=== PATIENT | male | born 1945 | race Caucasian/White ===

== ENCOUNTER 2016-10-22 13:13 | Observation (INO) | payer MEDICARE, BC ==
[~2016-10-22 13:13] MED LIST: Ondansetron INJ* 2 MG/ML VIAL IV PRN
[2016-10-22] MEDS ORDERED: ceFAZolin 1 GM in Dextrose (*) 1 GM/50 ML BAG IVPB ONE ×2 (14:22→14:37)
[2016-10-22] MEDS ORDERED: fentaNYL* 50 MCG/ML 2 ML VIAL (100 MCG VIAL) ONE (14:22)
[2016-10-22] MEDS ORDERED: Midazolam* 1 MG/ML 10 ML VIAL (10 MG) ONE (14:22)
[2016-10-22] MEDS ORDERED: HYDROmorphone INJ* 1 MG/ML CARPUJECT SYRINGE ONE (18:33)
[2016-10-22] MEDS: HYDROmorphone INJ* 1 MG/ML CARPUJECT SYRINGE IV PRN (21:20)
[2016-10-23] MEDS: NS 0.9% 1000 ML* 1,000 ML IV SCH ×2 (01:07→08:35)
[2016-10-23] MEDS ORDERED: Levothyroxine TAB* 88 MCG TAB PO SCH (06:00)
[2016-10-23] MEDS: HYDROmorphone INJ* 1 MG/ML CARPUJECT SYRINGE IV PRN (06:06)
--- NOTE | 2016-10-23 06:07 | PRO ---
DATE OF PROCEDURE: 10/22/16 - ROOM #332 REFERRING PHYSICIAN: Dr. Conrad. PROCEDURE PERFORMED: EGD with PEG tube placement. INDICATION: Tonsillar cancer. MEDICATIONS GIVEN: 75 mcg IV fentanyl, 6 mg IV Demerol. PROCEDURE IN DETAIL: After the EGD procedure including the risks, benefits, and alternatives not limited to perforation, surgery, and/or were explained to the patient, written consent was then obtained. 1 g of IV Ancef had been given immediately prior to the procedure starting. An Olympus gastroscope was then inserted into the patient's mouth, advanced down the esophagus, into the stomach, into the distal duodenum. Within the duodenum, I did insufflate with air and then using finger indentation on the left upper quadrant, I did find an area that was satisfactory to place the PEG tube. It was approximately 5 fingerbreadths below and 5 fingerbreadths to the left of the xiphoid process. The area was thoroughly cleaned and then anesthetized with 2 cc of 1% lidocaine. The finder needle did easily insert into the patient 's abdominal wall and into the stomach as was seen on the video monitor. The metal needle was withdrawn and the stylet was left in place. Blue wire was placed through the stylet and then grasped with the snare and then withdrawn from the patient. The PEG tube was then tied on to the end of the blue wire and then successfully pulled into place. A second-look endoscopy did confirm successful placement of the PEG tube within the patient's gastric lumen, and the bumper was set at approximately the 3 ubaldo. Scope was withdrawn from the patient. He tolerated the procedure well and was returned to his hospital room in stable condition. IMPRESSION: 1. Complete upper endoscopy into the distal duodenum with successful PEG tube placement. 2. Grade A erosive esophagitis. He should start omeprazole as an outpatient. 3. Successful PEG tube placement. 4. The patient will be admitted to the hospital for 23-hour observation. As per my routine protocol, he will have a nutritional consult, PEG teaching and then if he is doing well, he can be discharged to home tomorrow. CC: Dr. Conrad; Dr. Claudia George * [id number]/CPS #: [id number] [facility]
[2016-10-23 06:57] LABS: Hematocrit 32 % (42-52); Hemoglobin 10.9 g/dl (14.0-18.0); Mean Corpuscular HGB Conc 34 g/dl (31-36); Mean Corpuscular Hemoglobin 31 pg (27-31); Mean Corpuscular Volume 92 fL (80-94); Mean Platelet Volume 8 um3 (7.4-10.4); Red Blood Count 3.48 10^6/ul (4.0-5.4); Red Cell Distribution Width 13 % (10.5-15); White Blood Count 8.6 10^3/ul (3.5-10.8)
[2016-10-23] MEDS ORDERED: Lisinopril TAB* 10 MG PO SCH (09:00)
[2016-10-23 11:34] VITALS: BP 138/62
--- NOTE | 2016-10-25 16:28 | DS ---
DISCHARGE SUMMARY: DATE OF ADMISSION: 10/22/2016. DATE OF DISCHARGE: 10/23/2016. DISCHARGE DIAGNOSES: 1. Tonsillar cancer. 2. Status post placement of percutaneous gastrostomy. OTHER DIAGNOSES: 1. Hypertension. 2. Hypothyroidism. HOSPITAL COURSE: This 71-year-old man had a PEG tube placed yesterday. It appeared to be uneventful. Overnight, he has been comfortable. This morning, he has no complaints of pain and bowel sounds were positive. He has passed gas. He has been afebrile. The PEG was examined and was not erythematous. His is present and various principles were discussed including the ability to eat food until such time as he was no longer able to. Further training will take place with the nurses and he is scheduled to begin chemoradiation on the . [id number]/[facility] #: [id number] MTDD
== END 2016-10-23 14:00 | disposition home or self-care (01) ==
LOC: ENDO 13:13 → SSU 17:00 → INTOOBSV 17:00
PROVIDERS: ADMIT Internal Medicine Gastroenterology; ATTEND Internal Medicine Gastroenterology
PROC: 0DH63UZ Insertion of Feeding Device into Stomach, Percutaneous Approach (ICD-10-PCS; principal; 2016-10-22)
DX: C09.0 Malignant neoplasm of tonsillar fossa (principal); K22.10 Ulcer of esophagus without bleeding; I10 Essential (primary) hypertension; E03.9 Hypothyroidism, unspecified; M06.9 Rheumatoid arthritis, unspecified; M51.27 Other intervertebral disc displacement, lumbosacral region; F17.210 Nicotine dependence, cigarettes, uncomplicated
CPT/HCPCS: 36415; 85027; A9270-GY; G0378; J0690; J1170; J2250; J3010

== ENCOUNTER → 2016-10-29 06:31 | Day surgery (SDC) | payer MEDICARE, BC ==
[~2016-10-29 06:31] MED LIST changes: +Buffered Lidocaine 1% SYR 3ML* 3 ML/SYR SYRINGE INTRADERM ONE; +Famotidine IV* 10 MG/ML 2 ML (20 mg) IV ONE; +Famotidine IV* 10 MG/ML 2 ML (20 mg) ONE; +KETAMINE HCL* 50 MG/ML 10 ML VIAL ONE; +Lidocaine 1% INJ* 10 MG/ML 30 ML SDV ONE; +Lidocaine 2% PF * 5 ML VIAL ONE; +Midazolam* 1 MG/ML 5 ML VIAL (5 MG) ONE; -Ondansetron INJ* 2 MG/ML VIAL IV PRN; +PROCHLORPERAZINE INJ 5 MG/ML 2 ML VIAL IV PRN; +Propofol* 10 MG/ML 20 ML BTL IV PUSH ONE; +ceFAZolin 2 GM PREMIX (*) 2 GM/50 ML BAG IVPB ONE; +fentaNYL* 50 MCG/ML 2 ML VIAL (100 MCG VIAL) IV PRN; +fentaNYL* 50 MCG/ML 2 ML VIAL (100 MCG VIAL) ONE; +oxyCODONE/Acetamin 5/325 MG* TAB PO PRN
--- NOTE | 2016-10-29 08:40 | SURGPN ---
Brief Operative Note - Surgery Procedures: Procedures OPERATIVE REPORT PRE-OP: Tonsillar cancer POST-OP: Same PROCEDURE: Insertion of 8F PowerPort left chest wall, needle in SURGEON: MD Maria Guadalupe ANESTHESIA:Local with MAC [place] ASST: none IVF: min EBL: min SPECIMEN: none DRAIN: none WOUND CLASS: One COMPLICATIONS: none TO PACU
--- NOTE | 2016-10-29 09:17 | RAD ---
INDICATION: chest port placement COMPARISONS: None relevant TECHNIQUE: Fluoroscopy was provided for a vascular access procedure. Total fluoroscopy time is: 37 seconds FINDINGS: Spot images demonstrate a left-sided chest port from a subclavian approach with the tip overlying the superior vena cava. IMPRESSION: FLUOROSCOPY WAS PROVIDED FOR A VASCULAR ACCESS PROCEDURE CPT II Codes: 6045F
--- NOTE | 2016-10-29 09:19 | RAD ---
HISTORY: Status post chest port placement COMPARISONS: None relevant VIEWS:1: Single frontal portable view of the chest at 8:45 AM FINDINGS: LINES AND TUBES: There is a left-sided chest port from a subclavian approach with the tip overlying the superior vena cava. CARDIOMEDIASTINAL SILHOUETTE: The cardiomediastinal silhouette is normal for portable technique. PLEURA: The costophrenic angles are sharp. No pleural abnormalities are noted. There is no appreciable pneumothorax. LUNG PARENCHYMA: There is hyperinflation. ABDOMEN: The upper abdomen is clear. There is no subphrenic gas. BONES AND SOFT TISSUES: No bone or soft tissue abnormalities are noted. IMPRESSION: LINES AND TUBES ABOVE. COPD.
[2016-10-29 09:48] VITALS: BP 145/72
--- NOTE | 2016-10-30 01:32 | OP ---
DATE OF OPERATION: 10/29/16 [facility] DATE OF : 47 SURGEON: Femi Lerma MD JOINERY SETTER OUT: None. ANESTHESIOLOGIST: Dr. Morin. ANESTHESIA: Local with monitored anesthesia care with Dr. Morin. PRE-OP DIAGNOSIS: Tonsillar cancer. POST-OP DIAGNOSIS: Tonsillar cancer. OPERATIVE PROCEDURE: Insertion of an 8-Wolof left chest wall PowerPort , needle in. ESTIMATED BLOOD LOSS: Minimal. SPECIMENS: None. COMPLICATIONS: None. WOUND CLASSIFICATION: I. DRAINS: None. DESCRIPTION OF PROCEDURE: Written informed consent was obtained, left chest was marked with indelible ink and preoperative antibiotics were administered. The patient was taken to the operating room and placed in the supine position. Sequential compression devices and a warming blanket were applied. The right and left chest and neck were prepped and draped in the usual sterile fashion. Time-out verification was completed. The patient was placed in Trendelenburg position and the left infraclavicular area and the chest wall were anesthetized with 1% lidocaine with epinephrine. Using an 18-gauge Peralta needle passed down at the clavicle, the subclavian vein was accessed on the first pass with good blood return and the guidewire was inserted without difficulty and confirmed to be into the superior vena cava by fluoroscopy. Next, a small transverse incision was made several fingerbreadths below the puncture, initial puncture site and a transverse incision was made and a subcutaneous pocket developed inferior to the incision large enough to put the port. The catheter was then tunneled from the port site to the puncture site in the usual fashion. Using the sheath dilator peel-away system, I was able to insert the catheter into the central venous system at the junction between the right atrium and the superior vena cava without difficulty. The catheter was then cut to the appropriate length and attached to the port. There was good blood return and the catheter flushed well at this point. The port was then placed in the subcutaneous pocket, sutured into position with two separate 2-0 Prolene sutures. The incision was closed with a running 3-0 and 4-0 Polysorb suture and sterile dressings were applied. The port was then accessed with a right angle Marrufo needle and flushed with saline and subsequent heparin and a sterile dressing was applied. The patient tolerated the procedure well and was taken to the recovery room in stable condition. Postprocedural chest x-ray showed the catheter to be in good position without evidence of pneumothorax. [id number]/[facility] #: [id number] MTDD
== END ==
LOC: OR 06:31
PROVIDERS: ATTEND Surgery
DX: C09.9 Malignant neoplasm of tonsil, unspecified (principal); I10 Essential (primary) hypertension; Z87.891 Personal history of nicotine dependence; E03.9 Hypothyroidism, unspecified
CPT/HCPCS: 71010; 76000; C1788; J0690; J1642; J2250; J2704; J3010

== ENCOUNTER 2016-10-31 00:10 | Inpatient (IN) | payer MEDICARE, BC ==
[2016-10-31] MEDS ORDERED: NS 0.9% 1000 ML* 1,000 ML IV ONE ×2 (00:38→10:51)
[2016-10-31 01:52] LABS: Hematocrit 30 % (42-52); Hemoglobin 10.2 g/dl (14.0-18.0); Mean Corpuscular HGB Conc 34 g/dl (31-36); Mean Corpuscular Hemoglobin 31 pg (27-31); Mean Corpuscular Volume 92 fL (80-94); Mean Platelet Volume 7 um3 (7.4-10.4); Red Cell Distribution Width 13 % (10.5-15); White Blood Count 9.5 10^3/ul (3.5-10.8)
[2016-10-31 02:02] LABS: Albumin 2.6 g/dL (3.2-5.2); BUN/Creatinine Ratio 20.8 (8-20); Calcium 8.7 mg/dL (8.6-10.3); EGFR African American 221.6 (>60); EGFR Non-African American 172.3 (>60); Magnesium 1.6 mg/dL (1.9-2.7); Potassium 3.4 mmol/L (3.5-5.0); Total Protein 5.6 g/dL (6.4-8.9)
[2016-10-31 02:03] LABS: Total Bilirubin 0.7 mg/dL (0.2-1.0)
--- NOTE | 2016-10-31 02:09 | ED ---
Indio Spence Billy, scribed for Layton Adamson MD on 10/31/16 at 0043 . Shortness of Breath - HPI Summary HPI Summary: Patient is a 71 year-old male coming to [facility] presenting with constant SOB at rest starting at approximately 2000 the evening of 10/30/16. Sitting forward improves his symptoms. Patient started chemotherapy yesterday for throat and nose cancer. He has no other complaints at this time. - History of Current Complaint Chief Complaint: EDShortnessOfBreath Time Seen by Provider: 10/31/16 00:13 Hx Obtained From: Patient Onset/Duration: Gradual Onset, Lasting Hours, Still Present Timing: Constant Current Severity: Moderate Dyspnea At: Rest Aggrevating Factors: Nothing Alleviating Factors: Upright Position Associated Signs & Symptoms: Negative - Allergy/Home Medications Allergies/Adverse Reactions: Allergies Allergy/AdvReac Type Severity Reaction Status Date / Time No Known Allergies Allergy Verified 10/29/16 07:02 PMH/Surg Hx/FS Hx/Imm Hx Endocrine/Hematology History: Reports: Hx Thyroid Disease - HYPOTHYROIDISM Cardiovascular History: Reports: Hx Hypertension - CONTROL WITH MEDS Respiratory History: Reports: Other Respiratory Problems/Disorders - TUMOR IN THROAT, TROUBLE DISCHARGING MUCUS Musculoskeletal History: Reports: Hx Arthritis - RHEUMATOID Sensory History: Denies: Hx Contacts or Glasses, Hx Hearing Aid Opthamlomology History: Denies: Hx Contacts or Glasses - Surgical History Surgery Procedure, Year, and Place: APPENDECTOMY. 10/22/2016 EGD WITH PEG TUBE PLACEMENT Hx Anesthesia Reactions: No - LOCAL Infectious Disease History: No Infectious Disease History: Denies: Traveled Outside the [place] in Last 30 Days - Family History Known Family History: Positive: Other - No FHx of malignant hyperthermia or anesthesia reaction. - Social History Alcohol Use: None Substance Use Type: Reports: None Smoking Status (MU): Never Smoked Tobacco Type: Cigarettes Amount Used/How Often: 6-8 CIGARETTES PER DAY FOR ABOUT 40 YEARS Have You Smoked in the Last Year: Yes Review of Systems Negative: Fever Positive: Shortness Of Breath All Other Systems Reviewed And Are Negative: Yes Physical Exam Triage Information Reviewed: Yes Vital Signs On Initial Exam: Initial Vitals Temp Pulse Resp BP Pulse Ox 98.4 F 69 22 144/71 96 10/31/16 00:21 10/31/16 00:21 10/31/16 00:21 10/31/16 00:21 10/31/16 00:21 Vital Signs Reviewed: Yes Appearance: Positive: Ill-Appearing, Thin Skin: Positive: Warm Head/Face: Positive: Normal Head/Face Inspection Eyes: Positive: HEATHER ENT: Positive: Hearing grossly normal Neck: Positive: Supple Respiratory/Lung Sounds: Positive: Breath Sounds Present Cardiovascular: Positive: Normal Abdomen Description: Positive: Nontender, Soft Musculoskeletal: Positive: Strength/ROM Intact Neurological: Positive: Sensory/Motor Intact Diagnostics - Vital Signs Vital Signs Temp Pulse Resp BP Pulse Ox 10/31/16 00:21 98.4 F 69 22 144/71 96 - Laboratory Lab Results: Lab Results 10/31/16 10/31/16 10/31/16 Range/Units 01:35 01:35 01:35 WBC 9.5 (3.5-10.8) 10^3/ul RBC 3.30 L (4.0-5.4) 10^6/ul Hgb 10.2 L (14.0-18.0) g/dl Hct 30 L (42-52) % MCV 92 (80-94) fL MCH 31 (27-31) pg MCHC 34 (31-36) g/dl RDW 13 (10.5-15) % Plt Count 296 (150-450) 10^3/ul MPV 7 L (7.4-10.4) um3 Neut % (Auto) 83.7 H (38-83) % Lymph % (Auto) 6.9 L (25-47) % [place] % (Auto) 7.9 (1-9) % Eos % (Auto) 1.3 (0-6) % Baso % (Auto) 0.2 (0-2) % Absolute Neuts (auto) 7.9 H (1.5-7.7) 10^3/ul Absolute Lymphs (auto) 0.6 L (1.0-4.8) 10^3/ul Absolute Monos (auto) 0.8 (0-0.8) 10^3/ul Absolute Eos (auto) 0.1 (0-0.6) 10^3/ul Absolute Basos (auto) 0 (0-0.2) 10^3/ul Absolute Nucleated RBC 0 10^3/ul Nucleated RBC % 0 Sodium Pending Potassium 3.4 L (3.5-5.0) mmol/L Chloride 85 L (101-111) mmol/L Carbon Dioxide 32 (22-32) mmol/L Anion Gap Pending BUN 10 (6-24) mg/dL Creatinine 0.48 L (0.67-1.17) mg/dL Est GFR ( Amer) 221.6 (>60) Est GFR (Non-Af Amer) 172.3 (>60) BUN/Creatinine Ratio 20.8 H (8-20) Glucose 89 (70-100) mg/dL Lactic Acid 0.7 (0.5-2.0) mmol/L Calcium 8.7 (8.6-10.3) mg/dL Magnesium 1.6 L (1.9-2.7) mg/dL Total Bilirubin 0.70 (0.2-1.0) mg/dL AST 20 (13-39) U/L ALT 14 (7-52) U/L Alkaline Phosphatase 51 (34-104) U/L Total Protein 5.6 L (6.4-8.9) g/dL Albumin 2.6 L (3.2-5.2) g/dL Globulin 3.0 (2-4) g/dL Albumin/Globulin Ratio 0.9 L (1-3) Result Diagrams: 10/31/16 01:35 10/31/16 01:35 Lab Statement: Any lab studies that have been ordered have been reviewed, and results considered in the medical decision making process. - Radiology CXR Xray Interpretation: No Acute Changes Radiology Interpretation Completed By: ED Physician - EKG 0157 EKG Interpretation: NSR 61 bpm, LVH Course/Dx - Diagnoses Provider Diagnoses: Hyponatremia - Physician Notifications Discussed Care of Patient With: Dr. Rueda (hospitalist) @ 0225: accepts admission. Instructed by Provider To: Admit As Inpatient Discharge - Discharge Plan Condition: Fair Disposition: ADMITTED TO Health system documentation as recorded by the Indio gonzales Billy accurately reflects the service I personally performed and the decisions made by me, Layton Adamson MD.
[2016-10-31] MEDS ORDERED: Nicotine Inhaler* 10 MG AMP INH PRN (02:32)
[2016-10-31] MEDS ORDERED: Acetaminophen TAB* 325 MG PO PRN (02:32)
[2016-10-31] MEDS ORDERED: Ondansetron INJ* 2 MG/ML VIAL IV PRN (02:33)
[2016-10-31] MEDS ORDERED: HYDROmorphone INJ* 1 MG/ML CARPUJECT SYRINGE ONE (03:30)
[2016-10-31 03:36] LABS: Urine Bilirubin Negative (Negative); Urine Glucose Negative (Negative); Urine Nitrite Negative (Negative)
[2016-10-31] MEDS ORDERED: Lidocaine 2% VISCOUS* 15 ML UDC SWISH SWAL PRN (05:08)
--- NOTE | 2016-10-31 05:21 | HP ---
H&P (Free Text) History and Physical: PCP: Jeannie George MD Oncology: Mian Nuñez MD Radiation oncology: Mian Conrad MD Date/Time of Evaluation: 10/30/2016 0430 CC: malaise, SOB HPI: Mr Rajan is an unfortunate 71YO male recently diagnosed with locally aggressively invasive tonsillar carcinoma for which he had a power port placed on Saturday immediately follow that day by initiation of his first rounds of radio - & chemoTX. Saturday afternoon he began feeling generally weak with increasing SOB which seemed worse laying down. He has had no chest pain, sweats, F/C, or other issues. He has had ~35# weight loss in the past 3 months. Evaluation is notable for a Na of 119, down from 127 10/29/2016. PMedHx tonsillar CA, recently diagnosed HTN hypothyroidism normocytic anemia tobacco use disorder Allergies No Known Allergies Allergy (Verified 10/29/16 07:02) Ambulatory Orders Levothyroxine TAB* [Synthroid 88 MCG TAB*] 88 mcg PO QAM 10/18/16 Lisinopril TAB* [Prinivil TAB 10 MG*] 10 mg PO QAM 10/18/16 Ibuprofen [Advil Migraine] 400 mg PO DAILY PRN 10/22/16 Varenicline Tartrate [Chantix] 0.5 mg PO BID 10/22/16 oxyCODONE/Acetamin 5/325 MG* [Percocet 5/325 TAB*] 1 tab PO Q6H PRN #15 tab MDD 4 10/29/16 Prochlorperazine TAB* [Compazine Tab*] 10 mg PO Q6H PRN 10/31/16 PSurgHx PowerPort placement appendectomy SocHx: former smoker (quit Saturday) on varenicline, former heavy drinker until Aug 2016 was drinking upwards of 12 beers daily, no recreational drugs; , lives with his ; 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 ROS: as above, otherwise reviewed and all were negative Constitutional: NAD, normally developed, thin white male vitals: Vital Signs Temp 36.4 C 10/31/16 04:50 Pulse 67 10/31/16 04:50 Resp 20 10/31/16 04:50 BP 168/65 10/31/16 04:50 Pulse Ox 99 10/31/16 04:50 Intake & Output 10/30/16 10/30/16 10/31/16 11:59 23:59 11:59 Intake Total 1000 Balance 1000 Weight 59.421 kg Intake: IV Fluids 1000 HEENM: atraumatic; sclera/conjunctiva: non-icteric/mildly injected OU; hearing: clinically intact; oropharynx: clear, mucosa moist Neck: soft tissue: non-tender; thyroid: normal Pulmonary: clear to auscultation bilaterally, good aeration, no accessory muscle use CV: RR/RR, normal S1S2, no carotid bruit, no jugular venous distention, 2+ B DP/ PT, no edema Abdominal: soft, non-distended, non-tender, no rebound/guarding/rigidity, normoactive bowel sounds, no hepatosplenomegaly or masses, no costovertebral angle tenderness Musculoskeletal: general: grossly intact; gait: stable Integumental: normal appearance and texture of exposed skin Psychiatric orientation: AA&O to PPS affect: fatigued mood: cooperative eye contact: fair content: reliable responses: timely insight: good to fair Testing: Lab Results 10/31/16 10/31/16 10/31/16 Range/Units 01:35 01:35 01:35 WBC 9.5 (3.5-10.8) 10^3/ul RBC 3.30 L (4.0-5.4) 10^6/ul Hgb 10.2 L (14.0-18.0) g/dl Hct 30 L (42-52) % MCV 92 (80-94) fL MCH 31 (27-31) pg MCHC 34 (31-36) g/dl RDW 13 (10.5-15) % Plt Count 296 (150-450) 10^3/ul MPV 7 L (7.4-10.4) um3 Neut % (Auto) 83.7 H (38-83) % Lymph % (Auto) 6.9 L (25-47) % [place] % (Auto) 7.9 (1-9) % Eos % (Auto) 1.3 (0-6) % Baso % (Auto) 0.2 (0-2) % Absolute Neuts (auto) 7.9 H (1.5-7.7) 10^3/ul Absolute Lymphs (auto) 0.6 L (1.0-4.8) 10^3/ul Absolute Monos (auto) 0.8 (0-0.8) 10^3/ul Absolute Eos (auto) 0.1 (0-0.6) 10^3/ul Absolute Basos (auto) 0 (0-0.2) 10^3/ul Absolute Nucleated RBC 0 10^3/ul Nucleated RBC % 0 Sodium 119 L* D (133-145) mmol/L Potassium 3.4 L (3.5-5.0) mmol/L Chloride 85 L (101-111) mmol/L Carbon Dioxide 32 (22-32) mmol/L Anion Gap 2 (2-11) mmol/L BUN 10 (6-24) mg/dL Creatinine 0.48 L (0.67-1.17) mg/dL Est GFR ( Amer) 221.6 (>60) Est GFR (Non-Af Amer) 172.3 (>60) BUN/Creatinine Ratio 20.8 H (8-20) Glucose 89 (70-100) mg/dL Lactic Acid 0.7 (0.5-2.0) mmol/L Calcium 8.7 (8.6-10.3) mg/dL Magnesium 1.6 L (1.9-2.7) mg/dL Total Bilirubin 0.70 (0.2-1.0) mg/dL AST 20 (13-39) U/L ALT 14 (7-52) U/L Alkaline Phosphatase 51 (34-104) U/L Total Protein 5.6 L (6.4-8.9) g/dL Albumin 2.6 L (3.2-5.2) g/dL Globulin 3.0 (2-4) g/dL Albumin/Globulin Ratio 0.9 L (1-3) Urine Color Urine Appearance Urine pH (5-9) Ur Specific [place] (1.010-1.030) Urine Protein (Negative) Urine Ketones (Negative) Urine Blood (Negative) Urine Nitrate (Negative) Urine Bilirubin (Negative) Urine Urobilinogen (Negative) Ur Leukocyte Esterase (Negative) Urine Glucose (Negative) 10/31/16 Range/Units 03:25 WBC (3.5-10.8) 10^3/ul RBC (4.0-5.4) 10^6/ul Hgb (14.0-18.0) g/dl Hct (42-52) % MCV (80-94) fL MCH (27-31) pg MCHC (31-36) g/dl RDW (10.5-15) % Plt Count (150-450) 10^3/ul MPV (7.4-10.4) um3 Neut % (Auto) (38-83) % Lymph % (Auto) (25-47) % [place] % (Auto) (1-9) % Eos % (Auto) (0-6) % Baso % (Auto) (0-2) % Absolute Neuts (auto) (1.5-7.7) 10^3/ul Absolute Lymphs (auto) (1.0-4.8) 10^3/ul Absolute Monos (auto) (0-0.8) 10^3/ul Absolute Eos (auto) (0-0.6) 10^3/ul Absolute Basos (auto) (0-0.2) 10^3/ul Absolute Nucleated RBC 10^3/ul Nucleated RBC % Sodium (133-145) mmol/L Potassium (3.5-5.0) mmol/L Chloride (101-111) mmol/L Carbon Dioxide (22-32) mmol/L Anion Gap (2-11) mmol/L BUN (6-24) mg/dL Creatinine (0.67-1.17) mg/dL Est GFR ( Amer) (>60) Est GFR (Non-Af Amer) (>60) BUN/Creatinine Ratio (8-20) Glucose (70-100) mg/dL Lactic Acid (0.5-2.0) mmol/L Calcium (8.6-10.3) mg/dL Magnesium (1.9-2.7) mg/dL Total Bilirubin (0.2-1.0) mg/dL AST (13-39) U/L ALT (7-52) U/L Alkaline Phosphatase (34-104) U/L Total Protein (6.4-8.9) g/dL Albumin (3.2-5.2) g/dL Globulin (2-4) g/dL Albumin/Globulin Ratio (1-3) Urine Color Straw Urine Appearance Clear Urine pH 7.0 (5-9) Ur Specific [place] 1.006 L (1.010-1.030) Urine Protein Negative (Negative) Urine Ketones Negative (Negative) Urine Blood Negative (Negative) Urine Nitrate Negative (Negative) Urine Bilirubin Negative (Negative) Urine Urobilinogen Negative (Negative) Ur Leukocyte Esterase Negative (Negative) Urine Glucose Negative (Negative) ECG, personally reviewed: NSR rate 61, no ischemia CXR, personally reviewed: stigmata of COPD, possible small R pleural effusion; no infiltrate Impression: 71M presenting with fatigue, malaise, & subjective SOB found to have significant electrolyte abnormalities likely 2nd volume depletion from poor PO intake DIAGNOSIS & PLAN Primary hypoNatremia : NS IVFs, trend : consider 3% saline, if unresponsive to above : seizure precautions : supportive care hypoKalemia : replace hypoMagnesemia : replace SOB : this appears to be more related to dry mouth and nasal passage obstruction by tumor : saO2s >92% on RA : no objective distress tonsillar CA : oncology to manage suspect protein calorie malnutrition : check prealbumin Secondary HTN : continue lisinopril hypothyroidism : continue levothyroxine stable normocytic anemia : periodic monitoring tobacco use disorder : continue varenicline : nicotine inhaler : attempting cessation Admission Rational: observation for electrolyte imbalance DVTp: heparin SQ Code Status: full HCP:
[2016-10-31 05:35] LABS: Hematocrit 31 % (42-52); Hemoglobin 10.2 g/dl (14.0-18.0); Mean Corpuscular HGB Conc 33 g/dl (31-36); Mean Corpuscular Hemoglobin 31 pg (27-31); Mean Corpuscular Volume 92 fL (80-94); Mean Platelet Volume 7 um3 (7.4-10.4); Red Blood Count 3.32 10^6/ul (4.0-5.4); Red Cell Distribution Width 13 % (10.5-15); White Blood Count 8.8 10^3/ul (3.5-10.8)
[2016-10-31 05:44] LABS: BUN/Creatinine Ratio 20.8 (8-20); Calcium 8.3 mg/dL (8.6-10.3); EGFR African American 221.6 (>60); EGFR Non-African American 172.3 (>60); Potassium 3.3 mmol/L (3.5-5.0)
[2016-10-31] MEDS: Omeprazole CAP* 20 MG PO SCH (06:03)
[2016-10-31] MEDS: LEVOTHYROXINE 88 MCG PO SCH (06:03)
[2016-10-31] MEDS ORDERED: PROCHLORPERAZINE 10 MG PO PRN (06:03)
[2016-10-31] MEDS ORDERED: Magnesium Sulfate 2 GM IV* 2 GM/50 ML BAG IVPB ONE ×2 (06:11→08:12)
[2016-10-31] MEDS ORDERED: Albuterol 2.5 MG/3 ML NEB.SOL* (0.083%) INH SCH (07:00)
--- NOTE | 2016-10-31 07:44 | RAD ---
INDICATION: Weakness and shortness of breath. COMPARISON: Comparison is made with a prior chest x-ray study from October 29, 2016. TECHNIQUE: Dual-energy PA and lateral views of the chest were obtained. FINDINGS: The heart is within normal limits in size. Mediastinal and hilar contours appear within normal limits. There is a power port central venous catheter present entering on the left side. The catheter tip projects over the superior vena cava. The lungs are hyperinflated and clear. No pneumothorax or pleural effusion is seen. IMPRESSION: COPD, NO EVIDENCE FOR ACUTE FINDING.
[2016-10-31] MEDS: KCL 20 MEQ/100 ML IVPREMIX* 20 MEQ/100 ML BAG IV SCH ×3 (07:52→11:23)
[2016-10-31] MEDS ORDERED: Potassium Chloride LIQUID* 20 MEQ PACKET PO ONE (08:19)
[2016-10-31] MEDS ORDERED: Potassium Chloride LIQUID* 20 MEQ PACKET PO SCH (09:00)
[2016-10-31] MEDS: LISINOPRIL 10 MG PO SCH (09:15)
[2016-10-31] MEDS: Docusate CAP* 100 MG PO SCH ×2 (09:15→20:28)
[2016-10-31] MEDS: VARENICLINE 1 MG PO SCH ×3 (09:16→20:30)
--- NOTE | 2016-10-31 11:07 | PN ---
Progress Note - Progress Note SOAP: Subjective: feeling a little better this am. reports that his major complaint on coming to the ER was trouble breathing given the thick secretions and pressing tumor. reports that previously he was advised to eat lots of salty foods given his chronic hyponatremia, however with his new diagnosis he has not been. Objective: Vital Signs Temp Pulse Resp BP Pulse Ox 97.8 F 70 20 136/56 98 10/31/16 07:54 10/31/16 09:42 10/31/16 09:42 10/31/16 07:54 10/31/16 09:42 perr eomi op:very dry, thick stranded mucous, necrotic appearing mass posterior OP CTA bl s1 s2 nl soft nt clean peg no le edema a+O x 3, nonfocal neurological exam Abnormal Lab Results 10/31/16 10/31/16 10/31/16 01:35 01:35 01:35 WBC 9.5 RBC 3.30 L Hgb 10.2 L Hct 30 L MCV 92 MCH 31 MCHC 34 RDW 13 Plt Count 296 MPV 7 L Neut % (Auto) 83.7 H Lymph % (Auto) 6.9 L [place] % (Auto) 7.9 Eos % (Auto) 1.3 Baso % (Auto) 0.2 Absolute Neuts (auto) 7.9 H Absolute Lymphs (auto) 0.6 L Absolute Monos (auto) 0.8 Absolute Eos (auto) 0.1 Absolute Basos (auto) 0 Absolute Nucleated RBC 0 Nucleated RBC % 0 Sodium 119 L* D Potassium 3.4 L Chloride 85 L Carbon Dioxide 32 Anion Gap 2 BUN 10 Creatinine 0.48 L Est GFR ( Amer) 221.6 Est GFR (Non-Af Amer) 172.3 BUN/Creatinine Ratio 20.8 H Glucose 89 Lactic Acid 0.7 Calcium 8.7 Magnesium 1.6 L Total Bilirubin 0.70 AST 20 ALT 14 Alkaline Phosphatase 51 Total Protein 5.6 L Albumin 2.6 L Globulin 3.0 Albumin/Globulin Ratio 0.9 L Prealbumin 11 L Urine Color Urine Appearance Urine pH Ur Specific [place] Urine Protein Urine Ketones Urine Blood Urine Nitrate Urine Bilirubin Urine Urobilinogen Ur Leukocyte Esterase Urine Glucose 10/31/16 10/31/16 10/31/16 03:25 05:20 05:20 WBC 8.8 RBC 3.32 L Hgb 10.2 L Hct 31 L MCV 92 MCH 31 MCHC 33 RDW 13 Plt Count 307 MPV 7 L Neut % (Auto) Lymph % (Auto) [place] % (Auto) Eos % (Auto) Baso % (Auto) Absolute Neuts (auto) Absolute Lymphs (auto) Absolute Monos (auto) Absolute Eos (auto) Absolute Basos (auto) Absolute Nucleated RBC Nucleated RBC % Sodium 120 L Potassium 3.3 L Chloride 85 L Carbon Dioxide 31 Anion Gap 4 BUN 10 Creatinine 0.48 L Est GFR ( Amer) 221.6 Est GFR (Non-Af Amer) 172.3 BUN/Creatinine Ratio 20.8 H Glucose 89 Lactic Acid Calcium 8.3 L Magnesium Total Bilirubin AST ALT Alkaline Phosphatase Total Protein Albumin Globulin Albumin/Globulin Ratio Prealbumin Urine Color Straw Urine Appearance Clear Urine pH 7.0 Ur Specific [place] 1.006 L Urine Protein Negative Urine Ketones Negative Urine Blood Negative Urine Nitrate Negative Urine Bilirubin Negative Urine Urobilinogen Negative Ur Leukocyte Esterase Negative Urine Glucose Negative Acetaminophen (Tylenol Tab*) 650 mg PO Q6H PRN PRN Reason: FEVER/PAIN Albuterol (Ventolin 2.5 Mg/3 Ml Neb.Yuli*) 2.5 mg INH Q2H PRN PRN Reason: SOB/WHEEZING Docusate Sodium (Colace Cap*) 200 mg PO BID [facility] Last Admin: 10/31/16 09:15 Dose: Not Given Heparin Sodium (Porcine) (Heparin Vial(*)) 5,000 units SUBCUT Q8HR [facility] Heparin Sodium (Porcine) (Heparin Flush Port (Ivad)) 5 ml FLUSH DAILY [facility] PRN Reason: Protocol Last Admin: 10/31/16 09:15 Dose: Not Given Sodium Chloride (Ns 0.9% 1000 Ml*) 1,000 mls @ 125 mls/hr IV PER RATE BLANK Sodium Chloride (Ns 0.9% 1000 Ml*) 1,000 mls @ 1,000 mls/hr IV .PER RATE ONE Stop: 10/31/16 11:50 Levothyroxine Sodium (Synthroid Tab*) 88 mcg PO DAILY@0600 [facility] Last Admin: 10/31/16 06:03 Dose: 88 mcg Lidocaine (Xylocaine 2% Viscous*) 20 ml SWISH SWAL AC PRN PRN Reason: sore throat Lisinopril (Prinivil Tab*) 10 mg PO QAM [facility] Last Admin: 10/31/16 09:15 Dose: 10 mg Melatonin (Melatonin (Nf)) 3 mg PO BEDTIME PRN; Protocol PRN Reason: Sleep Nicotine (Nicotine Inhaler*) 10 mg INH Q2H PRN PRN Reason: CRAVING Omeprazole (Prilosec Cap*) 20 mg PO DAILY@0600 [facility] Last Admin: 10/31/16 06:03 Dose: 20 mg Ondansetron HCl (Zofran Inj*) 4 mg IV Q6H PRN PRN Reason: NAUSEA Oxycodone HCl (Roxycodone Tab*) 5 mg PO Q4H PRN PRN Reason: PAIN Prochlorperazine (Compazine Tab*) 10 mg PO Q6H PRN PRN Reason: NAUSEA Sodium Chloride (Sodium Chloride Tab*) 1 gm PO BID [facility] Varenicline (Chantix (Nf)) 1 mg PO BID [facility] Last Admin: 10/31/16 09:16 Dose: 1 mg Assessment: 71 yo M w cT4bN2 SCC of the oropharynx and chronic hyponatremia admitted with SOB and found to be significantly hyponatremic. I suspect that this hyponatremia is multifactorial and related to dehydration, decreased salt intake , and baseline SIADH. Plan: -1L NS bolus today -start salt tabs BID through PEG -dec free water through peg -can hydrate in office PRN if needed -ok to go to RT today, plan to say on course as much as possible severe protein calorie malnutrition: from cancer and poor PO intake -cont peg feeds -nutrition consult hypokalemia and hypomagnesemia: likely from poor PO intake plus cisplatin toxicity -will replete IV today and PO on discharge full code
[2016-10-31] MEDS: NS 0.9% 1000 ML* 1,000 ML IV SCH ×2 (11:22→20:26)
[2016-10-31] MEDS ORDERED: Morphine INJ* 4 MG/ML 1 ML CARPUJECT IV ONE (14:28)
[2016-10-31] MEDS: Sodium Chloride TAB* 1 GM PO SCH ×2 (16:33→20:28)
[2016-10-31] MEDS: CMCS: Melatonin (NF) 3 MG TAB PO PRN (20:28)
[2016-10-31] MEDS: traZODone TAB* 50 MG TAB PO PRN (20:29)
[2016-10-31] MEDS: oxyCODONE TAB* 5 MG TAB PO PRN (23:36)
[2016-11-01] MEDS: oxyCODONE TAB* 5 MG TAB PO PRN ×3 (03:56→21:56)
[2016-11-01] MEDS: NS 0.9% 1000 ML* 1,000 ML IV SCH (04:28)
[2016-11-01] MEDS: LEVOTHYROXINE 88 MCG PO SCH (05:11)
[2016-11-01] MEDS: Heparin VIAL(*) 5000 UNITS/ML VIAL (FIVE THOUSAND) SUBCUT SCH ×3 (05:12→22:06)
[2016-11-01] MEDS: Omeprazole CAP* 20 MG PO SCH (05:12)
[2016-11-01 05:39] LABS: Hematocrit 29 % (42-52); Hemoglobin 10.1 g/dl (14.0-18.0); Mean Corpuscular HGB Conc 34 g/dl (31-36); Mean Corpuscular Hemoglobin 31 pg (27-31); Mean Corpuscular Volume 90 fL (80-94); Mean Platelet Volume 7 um3 (7.4-10.4); Red Blood Count 3.26 10^6/ul (4.0-5.4); Red Cell Distribution Width 13 % (10.5-15); White Blood Count 8.3 10^3/ul (3.5-10.8)
[2016-11-01 05:53] LABS: Albumin 2.6 g/dL (3.2-5.2); BUN/Creatinine Ratio 18.5 (8-20); Calcium 7.9 mg/dL (8.6-10.3); EGFR African American 193.4 (>60); EGFR Non-African American 150.4 (>60); Magnesium 1.8 mg/dL (1.9-2.7); Total Bilirubin 0.7 mg/dL (0.2-1.0); Total Protein 5.6 g/dL (6.4-8.9)
--- NOTE | 2016-11-01 09:09 | PN ---
Progress Note - Progress Note SOAP: Subjective: Na lower this am. reports that he feels better than yesterday but still feels weak overall. mentally very clear. no BM since 10/30. anorexia but no nausea Objective: Vital Signs Temp Pulse Resp BP Pulse Ox 98.3 F 88 14 140/70 98 11/01/16 08:00 11/01/16 08:42 11/01/16 08:42 11/01/16 03:50 11/01/16 08:42 lying flat in nad perr eomi op dry necrotic appearing palatal mass cta bl s1 s2 nl soft nt +bs, clean peg no le edema A+O x 3, grossly nonfocal Laboratory Results - last 24 hr 11/01/16 11/01/16 05:15 05:15 WBC 8.3 RBC 3.26 L Hgb 10.1 L Hct 29 L MCV 90 MCH 31 MCHC 34 RDW 13 Plt Count 272 MPV 7 L Neut % (Auto) 88.3 H Lymph % (Auto) 5.5 L [place] % (Auto) 5.6 Eos % (Auto) 0.4 Baso % (Auto) 0.2 Absolute Neuts (auto) 7.4 Absolute Lymphs (auto) 0.5 L Absolute Monos (auto) 0.5 Absolute Eos (auto) 0 Absolute Basos (auto) 0 Absolute Nucleated RBC 0 Nucleated RBC % 0 Sodium 117 L* Potassium 3.0 L Chloride 83 L Carbon Dioxide 31 Anion Gap 3 BUN 10 Creatinine 0.54 L Est GFR ( Amer) 193.4 Est GFR (Non-Af Amer) 150.4 BUN/Creatinine Ratio 18.5 Glucose 103 H Calcium 7.9 L Magnesium 1.8 L Total Bilirubin 0.70 AST 23 ALT 18 Alkaline Phosphatase 58 Total Protein 5.6 L Albumin 2.6 L Globulin 3.0 Albumin/Globulin Ratio 0.9 L Acetaminophen (Tylenol Tab*) 650 mg PO Q6H PRN PRN Reason: FEVER/PAIN Albuterol (Ventolin 2.5 Mg/3 Ml Neb.Yuli*) 2.5 mg INH Q2H PRN PRN Reason: SOB/WHEEZING Demeclocycline HCl (Declomycin Tab*) 300 mg PO BID [facility] Docusate Sodium (Colace Cap*) 200 mg PO BID [facility] Last Admin: 10/31/16 20:28 Dose: Not Given Heparin Sodium (Porcine) (Heparin Vial(*)) 5,000 units SUBCUT Q8HR [facility] Last Admin: 11/01/16 05:12 Dose: 5,000 units Heparin Sodium (Porcine) (Heparin Flush Port (Ivad)) 5 ml FLUSH DAILY [facility] PRN Reason: Protocol Last Admin: 10/31/16 09:15 Dose: Not Given Potassium Chloride/Sodium Chloride (Ns 0.9% W/ 40 Meq Kcl 1000 Ml*) 1,000 mls @ 125 mls/hr IV PER RATE [facility] Levothyroxine Sodium (Synthroid Tab*) 88 mcg PO DAILY@0600 [facility] Last Admin: 11/01/16 05:11 Dose: 88 mcg Lidocaine (Xylocaine 2% Viscous*) 20 ml SWISH SWAL AC PRN PRN Reason: sore throat Lisinopril (Prinivil Tab*) 10 mg PO QAM [facility] Last Admin: 10/31/16 09:15 Dose: 10 mg Magnesium Citrate (Citrate Of Magnesia*) 15 ml PO DAILY [facility] Melatonin (Melatonin (Nf)) 3 mg PO BEDTIME PRN; Protocol PRN Reason: Sleep Last Admin: 10/31/16 20:28 Dose: 3 mg Nicotine (Nicotine Inhaler*) 10 mg INH Q2H PRN PRN Reason: CRAVING Omeprazole (Prilosec Cap*) 20 mg PO DAILY@0600 [facility] Last Admin: 11/01/16 05:12 Dose: 20 mg Ondansetron HCl (Zofran Inj*) 4 mg IV Q6H PRN PRN Reason: NAUSEA Oxycodone HCl (Roxycodone Tab*) 5 mg PO Q4H PRN PRN Reason: PAIN Last Admin: 11/01/16 03:56 Dose: 5 mg Potassium Chloride (Klor-Con Liquid*) 40 meq PO BID [facility] Prochlorperazine (Compazine Tab*) 10 mg PO Q6H PRN PRN Reason: NAUSEA Sodium Chloride (Sodium Chloride Tab*) 1 gm PO BID [facility] Last Admin: 10/31/16 20:28 Dose: 1 gm Trazodone HCl (Desyrel Tab*) 50 mg PO BEDTIME PRN PRN Reason: INSOMNIA Last Admin: 10/31/16 20:29 Dose: 50 mg Varenicline (Chantix (Nf)) 1 mg PO BID [facility] Last Admin: 10/31/16 20:30 Dose: Not Given Assessment: 71 yo M w T4N2 SCC of oropharynx on curative intent cisplatin/RT cycle 1 day 4 admitted with SOB and found to have severe hyponatremia. Plan: -add demeclocyline -cont salt tabs -free H20 restriction -per nutrition could concentrate jevity on d/c if needed but not as inpatient -k/mag repletion, likely related to poor PO intake and cisplatin induced nephrotoxicity -heparin dvt prophylaxis
[2016-11-01] MEDS: Magnesium CITRATE* 300 ML BTL PO SCH (10:41)
[2016-11-01] MEDS: NS 0.9% w/ 40 Meq KCL 1000 ML* 1,000 ML IV SCH ×2 (10:44→19:53)
[2016-11-01] MEDS: Sodium Chloride TAB* 1 GM PO SCH ×2 (10:46→22:05)
[2016-11-01] MEDS: Docusate CAP* 100 MG PO SCH ×2 (10:46→21:57)
[2016-11-01] MEDS: Potassium Chloride LIQUID* 20 MEQ PACKET PO SCH ×2 (10:47→22:06)
[2016-11-01] MEDS: Demeclocycline TAB* 150 MG PO SCH ×2 (10:47→22:05)
[2016-11-01] MEDS: LISINOPRIL 10 MG PO SCH (10:47)
[2016-11-01] MEDS: VARENICLINE 1 MG PO SCH ×3 (13:31→21:57)
[2016-11-01] MEDS: CMCS: Melatonin (NF) 3 MG TAB PO PRN (21:57)
[2016-11-02] MEDS: NS 0.9% w/ 40 Meq KCL 1000 ML* 1,000 ML IV SCH ×2 (04:14→17:08)
[2016-11-02] MEDS: LEVOTHYROXINE 88 MCG PO SCH (05:54)
[2016-11-02] MEDS: Heparin VIAL(*) 5000 UNITS/ML VIAL (FIVE THOUSAND) SUBCUT SCH ×3 (05:54→20:17)
[2016-11-02] MEDS: Omeprazole CAP* 20 MG PO SCH (05:54)
[2016-11-02 06:45] LABS: Hematocrit 28 % (42-52); Hemoglobin 9.4 g/dl (14.0-18.0); Mean Corpuscular HGB Conc 34 g/dl (31-36); Mean Corpuscular Hemoglobin 31 pg (27-31); Mean Corpuscular Volume 91 fL (80-94); Mean Platelet Volume 8 um3 (7.4-10.4); Red Blood Count 3.03 10^6/ul (4.0-5.4); Red Cell Distribution Width 13 % (10.5-15); White Blood Count 7.2 10^3/ul (3.5-10.8)
[2016-11-02 07:12] LABS: Albumin 2.4 g/dL (3.2-5.2); BUN/Creatinine Ratio 17.5 (8-20); Calcium 7.9 mg/dL (8.6-10.3); EGFR African American 181.7 (>60); EGFR Non-African American 141.3 (>60); Globulin 2.9 g/dL (2-4); Magnesium 1.6 mg/dL (1.9-2.7); Potassium 4.2 mmol/L (3.5-5.0); Total Bilirubin 0.6 mg/dL (0.2-1.0); Total Protein 5.3 g/dL (6.4-8.9)
[2016-11-02] MEDS: VARENICLINE 1 MG PO SCH ×3 (08:58→20:17)
[2016-11-02] MEDS: Potassium Chloride LIQUID* 20 MEQ PACKET PO SCH ×2 (09:09→20:14)
[2016-11-02] MEDS: Demeclocycline TAB* 150 MG PO SCH ×2 (09:09→20:14)
[2016-11-02] MEDS: LISINOPRIL 10 MG PO SCH (09:09)
[2016-11-02] MEDS: Docusate CAP* 100 MG PO SCH ×2 (09:09→20:15)
[2016-11-02] MEDS: Sodium Chloride TAB* 1 GM PO SCH ×2 (09:09→20:14)
[2016-11-02] MEDS: Magnesium CITRATE* 300 ML BTL PO SCH (09:10)
--- NOTE | 2016-11-02 11:20 | PN ---
Progress Note - Progress Note SOAP: Subjective: []Better then admission. Has diffuse discomfort across abd and chest, not pain and not nausea but does not feel right. Weak but able to do some walking. Not in pain. Acetaminophen (Tylenol Tab*) 650 mg PO Q6H PRN PRN Reason: FEVER/PAIN Albuterol (Ventolin 2.5 Mg/3 Ml Neb.Yuli*) 2.5 mg INH Q2H PRN PRN Reason: SOB/WHEEZING Demeclocycline HCl (Declomycin Tab*) 300 mg PO BID [facility] Last Admin: 11/02/16 09:09 Dose: 300 mg Docusate Sodium (Colace Cap*) 200 mg PO BID [facility] Last Admin: 11/02/16 09:09 Dose: 200 mg Heparin Sodium (Porcine) (Heparin Vial(*)) 5,000 units SUBCUT Q8HR [facility] Last Admin: 11/02/16 05:54 Dose: 5,000 units Heparin Sodium (Porcine) (Heparin Flush Port (Ivad)) 5 ml FLUSH DAILY [facility] PRN Reason: Protocol Last Admin: 11/02/16 09:09 Dose: Not Given Potassium Chloride/Sodium Chloride (Ns 0.9% W/ 40 Meq Kcl 1000 Ml*) 1,000 mls @ 125 mls/hr IV PER RATE [facility] Last Admin: 11/02/16 04:14 Dose: 125 mls/hr Levothyroxine Sodium (Synthroid Tab*) 88 mcg PO DAILY@0600 [facility] Last Admin: 11/02/16 05:54 Dose: 88 mcg Lidocaine (Xylocaine 2% Viscous*) 20 ml SWISH SWAL AC PRN PRN Reason: sore throat Lisinopril (Prinivil Tab*) 10 mg PO QAM [facility] Last Admin: 11/02/16 09:09 Dose: 10 mg Magnesium Citrate (Citrate Of Magnesia*) 15 ml PO DAILY [facility] Last Admin: 11/02/16 09:10 Dose: 15 ml Melatonin (Melatonin (Nf)) 3 mg PO BEDTIME PRN; Protocol PRN Reason: Sleep Last Admin: 11/01/16 21:57 Dose: 3 mg Nicotine (Nicotine Inhaler*) 10 mg INH Q2H PRN PRN Reason: CRAVING Omeprazole (Prilosec Cap*) 20 mg PO DAILY@0600 [facility] Last Admin: 11/02/16 05:54 Dose: 20 mg Ondansetron HCl (Zofran Inj*) 4 mg IV Q6H PRN PRN Reason: NAUSEA Oxycodone HCl (Roxycodone Tab*) 5 mg PO Q4H PRN PRN Reason: PAIN Last Admin: 11/01/16 21:56 Dose: 5 mg Potassium Chloride (Klor-Con Liquid*) 40 meq PO BID [facility] Last Admin: 11/02/16 09:09 Dose: 40 meq Prochlorperazine (Compazine Tab*) 10 mg PO Q6H PRN PRN Reason: NAUSEA Last Admin: 11/01/16 16:53 Dose: 10 mg Sodium Chloride (Sodium Chloride Tab*) 1 gm PO BID [facility] Last Admin: 11/02/16 09:09 Dose: 1 gm Trazodone HCl (Desyrel Tab*) 50 mg PO BEDTIME PRN PRN Reason: INSOMNIA Last Admin: 10/31/16 20:29 Dose: 50 mg Varenicline (Chantix (Nf)) 1 mg PO BID [facility] Last Admin: 11/01/16 21:57 Dose: 1 mg Objective: [] Vital Signs Temp Pulse Resp BP Pulse Ox 98.5 F 78 14 169/85 94 11/02/16 07:40 11/02/16 08:15 11/02/16 08:15 11/02/16 07:40 11/02/16 08:15 HEENT - Dry mouth, no thrush, lesion in left hard palate. CTA RRR S1S2 Distended and hypertympainc, had BS, NT Ext warm and no edema. Assessment: 71 yo M w T4N2 SCC of oropharynx on curative intent cisplatin/RT cycle 1 day 5 admitted with SOB and found to have severe hyponatremia. Several issues today: Plan: 1. Hyponatremia. Na increased on demeclocyline. He has low Alb and question of occult liver disease secondary to RA and MTX in past. PET scan does not show enlarged spleen or liver. - Continue Demclocycline - Check US liver - Check PT -cont salt tabs -free H20 restriction 2. Intolerance of tube feeds. Abd distension on exam. Ddx: gastroparesis, ileus. - ABD XR - Reglan 10 mg IV TID - Pump for tube feeds -k/mag repletion 3. Tonsil Cancer. Continue XRT, will need to decide if can have additional Cisplatin. 4. Walk around halls 4 times per day with or nurse 5. heparin dvt prophylaxis
[2016-11-02] MEDS ORDERED: Magnesium Sulfate IV* 3 GM in NS 0.9% 100 ML* 100 ML IVPB ONE (12:00)
--- NOTE | 2016-11-02 12:29 | RAD ---
INDICATION: Hyponatremia COMPARISON: None TECHNIQUE: Supine and upright views of the abdomen were obtained. FINDINGS: The feeding tube is noted overlying the gastric fundus. Multiple air-filled loops of bowel are seen throughout the abdomen the colon exhibits a maximum diameter of 5.1 cm. There is gas and stool overlying the expected location of the rectum. There is no free air seen beneath the diaphragm. IMPRESSION: Top normal dilated loops of air-filled small bowel seen throughout the colon but there is gas and stool overlying the expected location of the rectum.
--- NOTE | 2016-11-02 13:49 | RAD ---
HISTORY: liver failure COMPARISONS: None TECHNIQUE: Multiple transverse and longitudinal ultrasound images were obtained of the right upper quadrant of the abdomen using grayscale and color Doppler imaging. FINDINGS: LIVER: The liver is normal in shape, size, contour, and echogenicity. There are no focal parenchymal masses. There is normal hepatopedal flow of the portal vein on Doppler imaging. BILIARY TREE: There is no intrahepatic or extrahepatic biliary dilatation. The common duct measures 0.3 cm. GALLBLADDER: There is trace amount pericolonic cystic fluid. There is no appreciable cholelithiasis. There is no sonographic Machado's sign PANCREAS: The pancreas is obscured by overlying bowel gas. RIGHT KIDNEY: The right kidney is echogenic. There are several small simple cysts.. There is no hydronephrosis or nephrolithiasis. The right kidney measures 12.2 x 3.8 x 5.9 cm. AORTA AND IVC: The aorta and IVC are unremarkable. FLUID: There is a right pleural effusion. OTHER FINDINGS: None. IMPRESSION: 1. TRACE AMOUNT OF PERICHOLECYSTIC FLUID. 2. SMALL RIGHT PLEURAL EFFUSION. 3. ECHOGENIC KIDNEYS SUGGESTING MEDICAL RENAL DISEASE
[2016-11-02] MEDS: Metoclopramide IV* 5 MG/ML 2 ML VIAL IV SCH ×2 (13:50→20:15)
[2016-11-02] MEDS: Albuterol 2.5 MG/3 ML NEB.SOL* (0.083%) INH PRN (22:25)
[2016-11-03] MEDS: NS 0.9% w/ 40 Meq KCL 1000 ML* 1,000 ML IV SCH (01:07)
[2016-11-03] MEDS: LEVOTHYROXINE 88 MCG PO SCH (04:48)
[2016-11-03] MEDS: Omeprazole CAP* 20 MG PO SCH (04:48)
[2016-11-03] MEDS: Heparin VIAL(*) 5000 UNITS/ML VIAL (FIVE THOUSAND) SUBCUT SCH ×3 (04:49→20:26)
[2016-11-03 05:12] LABS: Hematocrit 28 % (42-52); Hemoglobin 9.4 g/dl (14.0-18.0); Mean Corpuscular HGB Conc 34 g/dl (31-36); Mean Corpuscular Hemoglobin 31 pg (27-31); Mean Corpuscular Volume 91 fL (80-94); Mean Platelet Volume 7 um3 (7.4-10.4); Red Blood Count 3.09 10^6/ul (4.0-5.4); Red Cell Distribution Width 13 % (10.5-15); White Blood Count 5.6 10^3/ul (3.5-10.8)
[2016-11-03 05:26] LABS: Albumin 2.5 g/dL (3.2-5.2); BUN/Creatinine Ratio 15.8 (8-20); Calcium 7.9 mg/dL (8.6-10.3); EGFR African American 181.7 (>60); EGFR Non-African American 141.3 (>60); Globulin 2.8 g/dL (2-4); Magnesium 1.7 mg/dL (1.9-2.7); Phosphorus 2.5 mg/dL (2.5-5.0); Potassium 3.8 mmol/L (3.5-5.0); Total Bilirubin 0.6 mg/dL (0.2-1.0); Total Protein 5.3 g/dL (6.4-8.9)
--- NOTE | 2016-11-03 09:04 | PN ---
Progress Note - Progress Note SOAP: Subjective: feels better today than he has in days. no BM x 5 days though with abd xray showing mild ileus. tolerating tube feeds but only at 20 cc/hr Objective: Vital Signs Temp Pulse Resp BP Pulse Ox 98.1 F 89 16 161/74 93 11/02/16 23:36 11/02/16 23:36 11/02/16 23:36 11/02/16 23:36 11/02/16 23:36 perr eomi op:palatal necrotic mass cta bl s1 s2 nl soft clean peg no le edema a+O x 3, grossly nonfocal Laboratory Results - last 24 hr 11/03/16 11/03/16 11/03/16 05:00 05:00 05:00 WBC 5.6 RBC 3.09 L Hgb 9.4 L Hct 28 L MCV 91 MCH 31 MCHC 34 RDW 13 Plt Count 254 MPV 7 L Neut % (Auto) 84.4 H Lymph % (Auto) 7.7 L [place] % (Auto) 6.0 Eos % (Auto) 1.7 Baso % (Auto) 0.2 Absolute Neuts (auto) 4.7 Absolute Lymphs (auto) 0.4 L Absolute Monos (auto) 0.3 Absolute Eos (auto) 0.1 Absolute Basos (auto) 0 Absolute Nucleated RBC 0 Nucleated RBC % 0 INR (Anticoag Therapy) 0.90 Sodium 122 L Potassium 3.8 Chloride 89 L Carbon Dioxide 29 Anion Gap 4 BUN 9 Creatinine 0.57 L Est GFR ( Amer) 181.7 Est GFR (Non-Af Amer) 141.3 BUN/Creatinine Ratio 15.8 Glucose 98 Calcium 7.9 L Phosphorus 2.5 Magnesium 1.7 L Total Bilirubin 0.60 AST 17 ALT 14 Alkaline Phosphatase 54 Total Protein 5.3 L Albumin 2.5 L Globulin 2.8 Albumin/Globulin Ratio 0.9 L Acetaminophen (Tylenol Tab*) 650 mg PO Q6H PRN PRN Reason: FEVER/PAIN Albuterol (Ventolin 2.5 Mg/3 Ml Neb.Yuli*) 2.5 mg INH Q2H PRN PRN Reason: SOB/WHEEZING Last Admin: 11/02/16 22:25 Dose: 2.5 mg Demeclocycline HCl (Declomycin Tab*) 300 mg PO BID [facility] Last Admin: 11/02/16 20:14 Dose: 300 mg Docusate Sodium (Colace Cap*) 200 mg PO BID [facility] Last Admin: 11/02/16 20:15 Dose: 200 mg Heparin Sodium (Porcine) (Heparin Vial(*)) 5,000 units SUBCUT Q8HR [facility] Last Admin: 11/03/16 04:49 Dose: 5,000 units Heparin Sodium (Porcine) (Heparin Flush Port (Ivad)) 5 ml FLUSH DAILY [facility] PRN Reason: Protocol Last Admin: 11/02/16 09:09 Dose: Not Given Levothyroxine Sodium (Synthroid Tab*) 88 mcg PO DAILY@0600 [facility] Last Admin: 11/03/16 04:48 Dose: 88 mcg Lidocaine (Xylocaine 2% Viscous*) 20 ml SWISH SWAL PRN PRN Reason: sore throat Last Admin: 11/02/16 22:30 Dose: 20 ml Lisinopril (Prinivil Tab*) 10 mg PO QAM [facility] Last Admin: 11/02/16 09:09 Dose: 10 mg Magnesium Citrate (Citrate Of Magnesia*) 15 ml PO DAILY [facility] Last Admin: 11/02/16 09:10 Dose: 15 ml Melatonin (Melatonin (Nf)) 3 mg PO BEDTIME PRN; Protocol PRN Reason: Sleep Last Admin: 11/01/16 21:57 Dose: 3 mg Metoclopramide HCl (Reglan Iv*) 10 mg IV TID [facility] Last Admin: 11/02/16 20:15 Dose: 10 mg Nicotine (Nicotine Inhaler*) 10 mg INH Q2H PRN PRN Reason: CRAVING Omeprazole (Prilosec Cap*) 20 mg PO DAILY@0600 [facility] Last Admin: 11/03/16 04:48 Dose: 20 mg Ondansetron HCl (Zofran Inj*) 4 mg IV Q6H PRN PRN Reason: NAUSEA Oxycodone HCl (Roxycodone Tab*) 5 mg PO Q4H PRN PRN Reason: PAIN Last Admin: 11/01/16 21:56 Dose: 5 mg Polyethylene Glycol/Electrolytes (Miralax*) 17 gm PO Q12HR [facility] Potassium Chloride (Klor-Con Liquid*) 40 meq PO BID [facility] Last Admin: 11/02/16 20:14 Dose: 40 meq Prochlorperazine (Compazine Tab*) 10 mg PO Q6H PRN PRN Reason: NAUSEA Last Admin: 11/01/16 16:53 Dose: 10 mg Sodium Chloride (Sodium Chloride Tab*) 1 gm PO BID [facility] Last Admin: 11/02/16 20:14 Dose: 1 gm Trazodone HCl (Desyrel Tab*) 50 mg PO BEDTIME PRN PRN Reason: INSOMNIA Last Admin: 10/31/16 20:29 Dose: 50 mg Varenicline (Chantix (Nf)) 1 mg PO BID [facility] Last Admin: 11/02/16 20:17 Dose: 1 mg Assessment: 71 yo M w T4N2 SCC of oropharynx on curative intent cisplatin/RT cycle 1 day 6 admitted with severe hyponatremia. improving slowly on demeclocycline. Plan: -stop IVFs today -can increase demeclocycline to TID tomorrow if <122 -cont salt tabs bid -add miralax BID today, add lactulose tomorrow if no BM -increase tube feeds today to 40cc/hr with order to titrate up 10cc/hr q8hrs as tolerated to goal of 60cc/hr -give IV mag today, wasting 2/2 cisplatin. increase po to 15 ml BID. -watch K now that fluids stopped. on 40meq bid but can increase if needed
[2016-11-03] MEDS ORDERED: Magnesium Sulfate 2 GM IV* 2 GM/50 ML BAG IVPB ONE (09:08)
[2016-11-03] MEDS ORDERED: Polyethylene Glycol 3350* 17 GM PACKET ONE (09:26)
[2016-11-03] MEDS: Polyethylene Glycol 3350* 17 GM PACKET PO SCH ×2 (09:33→20:23)
[2016-11-03] MEDS: Demeclocycline TAB* 150 MG PO SCH ×2 (09:35→20:25)
[2016-11-03] MEDS: Potassium Chloride LIQUID* 20 MEQ PACKET PO SCH ×2 (09:35→20:26)
[2016-11-03] MEDS: LISINOPRIL 10 MG PO SCH (09:35)
[2016-11-03] MEDS: Metoclopramide IV* 5 MG/ML 2 ML VIAL IV SCH ×3 (09:36→20:26)
[2016-11-03] MEDS: Docusate CAP* 100 MG PO SCH ×2 (09:44→20:26)
[2016-11-03] MEDS: Sodium Chloride TAB* 1 GM PO SCH ×2 (09:49→20:25)
[2016-11-03] MEDS: VARENICLINE 1 MG PO SCH ×2 (09:50→20:24)
[2016-11-03] MEDS: Magnesium CITRATE* 300 ML BTL PO SCH ×2 (10:17→20:24)
[2016-11-04] MEDS: Omeprazole CAP* 20 MG PO SCH (04:29)
[2016-11-04] MEDS: LEVOTHYROXINE 88 MCG PO SCH (04:29)
[2016-11-04] MEDS: Heparin VIAL(*) 5000 UNITS/ML VIAL (FIVE THOUSAND) SUBCUT SCH ×3 (04:30→22:00)
[2016-11-04 04:58] LABS: Hematocrit 30 % (42-52); Hemoglobin 10.1 g/dl (14.0-18.0); Mean Corpuscular HGB Conc 34 g/dl (31-36); Mean Corpuscular Hemoglobin 31 pg (27-31); Mean Corpuscular Volume 91 fL (80-94); Mean Platelet Volume 8 um3 (7.4-10.4); Red Blood Count 3.25 10^6/ul (4.0-5.4); Red Cell Distribution Width 13 % (10.5-15)
[2016-11-04 05:10] LABS: Albumin 2.6 g/dL (3.2-5.2); BUN/Creatinine Ratio 15.8 (8-20); Calcium 7.9 mg/dL (8.6-10.3); EGFR African American 181.7 (>60); EGFR Non-African American 141.3 (>60); Magnesium 1.7 mg/dL (1.9-2.7); Potassium 3.6 mmol/L (3.5-5.0); Total Bilirubin 0.5 mg/dL (0.2-1.0); Total Protein 5.6 g/dL (6.4-8.9)
[2016-11-04] MEDS: Metoclopramide IV* 5 MG/ML 2 ML VIAL IV SCH ×3 (08:18→20:53)
[2016-11-04] MEDS: LISINOPRIL 10 MG PO SCH (08:25)
[2016-11-04] MEDS: Polyethylene Glycol 3350* 17 GM PACKET PO SCH ×2 (08:25→20:50)
[2016-11-04] MEDS: Potassium Chloride LIQUID* 20 MEQ PACKET PO SCH ×2 (08:25→20:52)
[2016-11-04] MEDS: Sodium Chloride TAB* 1 GM PO SCH ×2 (08:25→20:52)
[2016-11-04] MEDS: Docusate CAP* 100 MG PO SCH ×2 (08:26→21:04)
[2016-11-04] MEDS: Demeclocycline TAB* 150 MG PO SCH ×4 (08:26→20:52)
[2016-11-04] MEDS ORDERED: Magnesium Sulfate 2 GM IV* 2 GM/50 ML BAG IVPB ONE (08:42)
[2016-11-04] MEDS: Magnesium CITRATE* 300 ML BTL PO SCH ×2 (09:17→21:04)
[2016-11-04] MEDS: VARENICLINE 1 MG PO SCH ×2 (09:17→20:52)
[2016-11-04] MEDS ORDERED: diPHENhydraMINE PO* 25 MG PO PRN (09:48)
--- NOTE | 2016-11-04 09:53 | PN ---
Subjective Date of Service: 11/04/16 Interval History: Patient seen this morning. Said he did have a good night of sleep due to bad dreams. Encouraged him to use prn medications to help sleep if needed. No abdominal pain, still no BM. No SOB. No discomfort around port or PEG. Family History: Unchanged from Admission Social History: Unchanged from Admission Past Medical History: Unchanged from Admission Objective Active Medications: Acetaminophen (Tylenol Tab*) 650 mg PO Q6H PRN Albuterol (Ventolin 2.5 Mg/3 Ml Neb.Yuli*) 2.5 mg INH Q2H PRN Demeclocycline HCl (Declomycin Tab*) 300 mg PO TID [facility] Docusate Sodium (Colace Cap*) 200 mg PO BID [facility] Heparin Sodium (Porcine) (Heparin Vial(*)) 5,000 units SUBCUT Q8HR [facility] Heparin Sodium (Porcine) (Heparin Flush Port (Ivad)) 5 ml FLUSH DAILY [facility] Levothyroxine Sodium (Synthroid Tab*) 88 mcg PO DAILY@0600 [facility] Lidocaine (Xylocaine 2% Viscous*) 20 ml SWISH SWAL AC PRN Lisinopril (Prinivil Tab*) 10 mg PO QAM [facility] Magnesium Citrate (Citrate Of Magnesia*) 15 ml PO BID [facility] Melatonin (Melatonin (Nf)) 3 mg PO BEDTIME PRN; Protocol Metoclopramide HCl (Reglan Iv*) 10 mg IV TID [facility] Nicotine (Nicotine Inhaler*) 10 mg INH Q2H PRN Omeprazole (Prilosec Cap*) 20 mg PO DAILY@0600 [facility] Ondansetron HCl (Zofran Inj*) 4 mg IV Q6H PRN Oxycodone HCl (Roxycodone Tab*) 5 mg PO Q4H PRN Polyethylene Glycol/Electrolytes (Miralax*) 17 gm PO Q12HR [facility] Potassium Chloride (Klor-Con Liquid*) 40 meq PO BID [facility] Prochlorperazine (Compazine Tab*) 10 mg PO Q6H PRN Sodium Chloride (Sodium Chloride Tab*) 1 gm PO BID [facility] Trazodone HCl (Desyrel Tab*) 50 mg PO BEDTIME PRN Varenicline (Chantix (Nf)) 1 mg PO BID [facility] Vital Signs 11/03/16 11/03/16 11/03/16 15:14 19:32 20:00 Temperature 98.0 F 98.2 F Pulse Rate 73 74 Respiratory 28 20 20 Rate Blood Pressure 147/70 141/76 (mmHg) O2 Sat by Pulse 98 96 Oximetry 11/03/16 11/04/16 11/04/16 23:04 01:51 07:42 Temperature 98.6 F 98.0 F Pulse Rate 76 91 76 Respiratory 16 16 20 Rate Blood Pressure 143/59 145/63 (mmHg) O2 Sat by Pulse 97 93 98 Oximetry Oxygen Devices in Use Now: None Appearance: Elderly, M, laying in bed in NAD Eyes: No Scleral Icterus Ears/Nose/Mouth/Throat: Mucous Membranes Moist Respiratory: Symmetrical Chest Expansion and Respiratory Effort, Clear to Auscultation Cardiovascular: NL Sounds; No Murmurs; No JVD, RRR Abdominal: NL Sounds; No Tenderness; No Distention, - - PEG tube in place, dressing c/d/i Lymphatic: No Cervical Adenopathy Extremities: No Edema Neurological: Alert and Oriented x 3 Result Diagrams: 11/04/16 04:30 11/04/16 04:30 Assess/Plan/Problems-Billing Assessment: Hyponatremia in a 71 yo M with hx of oropharyngeal SCC on curative chemo - Patient Problems (1) Hyponatremia Current Visit: Yes Comment: Unchanged. Continue NaCl tabs, increase Demeclocycline to TID (2) Ileus Current Visit: Yes Comment: Still no BM, will add lactulose to regimen (3) Severe protein-calorie malnutrition Current Visit: Yes Comment: TF at goal, tolerating well, continue current rate of 60 ml/hr. Albumin trending up. (4) Hypomagnesemia Current Visit: Yes Comment: Continue increased PO Mag dose (started 11/03), will give additional IV mag today (5) HTN (hypertension) Current Visit: Yes Comment: Continue Lisinopril (6) DVT prophylaxis Current Visit: Yes Comment: HSQ
[2016-11-04] MEDS: CMCS: Melatonin (NF) 3 MG TAB PO PRN (21:08)
[2016-11-05] MEDS: traZODone TAB* 50 MG TAB PO PRN (03:02)
[2016-11-05] MEDS: Heparin VIAL(*) 5000 UNITS/ML VIAL (FIVE THOUSAND) SUBCUT SCH ×3 (05:25→22:09)
[2016-11-05] MEDS: LEVOTHYROXINE 88 MCG PO SCH (05:26)
[2016-11-05] MEDS: Omeprazole CAP* 20 MG PO SCH (05:26)
[2016-11-05 05:51] LABS: Hematocrit 30 % (42-52); Hemoglobin 10.2 g/dl (14.0-18.0); Mean Corpuscular HGB Conc 34 g/dl (31-36); Mean Corpuscular Hemoglobin 31 pg (27-31); Mean Corpuscular Volume 90 fL (80-94); Mean Platelet Volume 8 um3 (7.4-10.4); Red Cell Distribution Width 13 % (10.5-15); White Blood Count 10.6 10^3/ul (3.5-10.8)
[2016-11-05 06:01] LABS: BUN/Creatinine Ratio 17.5 (8-20); Calcium 8.1 mg/dL (8.6-10.3); EGFR African American 181.7 (>60); EGFR Non-African American 141.3 (>60); Magnesium 1.6 mg/dL (1.9-2.7); Potassium 3.5 mmol/L (3.5-5.0)
[2016-11-05] MEDS ORDERED: Magnesium Sulfate 2 GM IV* 2 GM/50 ML BAG IVPB ONE (07:31)
[2016-11-05] MEDS ORDERED: NS 0.9% 1000 ML* 1,000 ML IV ONE (08:59)
--- NOTE | 2016-11-05 09:06 | PN ---
Progress Note - Progress Note SOAP: Subjective: feeling better this am. frustrated and wants to go home. no nausea. 3 BMs yesterday Objective: Vital Signs Temp Pulse Resp BP Pulse Ox 99.5 F 79 20 119/52 94 11/05/16 07:23 11/05/16 07:23 11/05/16 08:00 11/05/16 07:23 11/05/16 07:23 perr eomi op: dry, ulcerated lesion on palate CTA bl s1 s2 nl soft nt +bs clean peg no le edema A+O x 3, nonfocal neurological exam Laboratory Results - last 24 hr 11/05/16 11/05/16 05:00 05:00 WBC 10.6 RBC 3.30 L Hgb 10.2 L Hct 30 L MCV 90 MCH 31 MCHC 34 RDW 13 Plt Count 203 MPV 8 Neut % (Auto) 93.1 H Lymph % (Auto) 3.1 L [place] % (Auto) 2.8 Eos % (Auto) 0.8 Baso % (Auto) 0.2 Absolute Neuts (auto) 9.9 H Absolute Lymphs (auto) 0.3 L Absolute Monos (auto) 0.3 Absolute Eos (auto) 0.1 Absolute Basos (auto) 0 Absolute Nucleated RBC 0 Nucleated RBC % 0 Sodium 118 L* Potassium 3.5 Chloride 83 L Carbon Dioxide 32 Anion Gap 3 BUN 10 Creatinine 0.57 L Est GFR ( Amer) 181.7 Est GFR (Non-Af Amer) 141.3 BUN/Creatinine Ratio 17.5 Glucose 126 H Calcium 8.1 L Magnesium 1.6 L Acetaminophen (Tylenol Tab*) 650 mg PO Q6H PRN PRN Reason: FEVER/PAIN Albuterol (Ventolin 2.5 Mg/3 Ml Neb.Yuli*) 2.5 mg INH Q2H PRN PRN Reason: SOB/WHEEZING Last Admin: 11/02/16 22:25 Dose: 2.5 mg Demeclocycline HCl (Declomycin Tab*) 300 mg PO TID [facility] Last Admin: 11/04/16 20:52 Dose: 300 mg Docusate Sodium (Colace Cap*) 200 mg PO BID [facility] Last Admin: 11/04/16 21:04 Dose: Not Given Heparin Sodium (Porcine) (Heparin Vial(*)) 5,000 units SUBCUT Q8HR [facility] Last Admin: 11/05/16 05:25 Dose: 5,000 units Heparin Sodium (Porcine) (Heparin Flush Port (Ivad)) 5 ml FLUSH DAILY [facility] PRN Reason: Protocol Last Admin: 11/04/16 08:18 Dose: 5 ml Potassium Chloride (Potassium Chloride 20 Meq/100 Ml Ivpremix*) 20 meq in 100 mls @ 50 mls/hr IV Q2H [facility] Stop: 11/05/16 13:59 Sodium Chloride (Ns 0.9% 1000 Ml*) 1,000 mls @ 1,000 mls/hr IV .PER RATE ONE Stop: 11/05/16 09:58 Levothyroxine Sodium (Synthroid Tab*) 88 mcg PO DAILY@0600 [facility] Last Admin: 11/05/16 05:26 Dose: 88 mcg Lidocaine (Xylocaine 2% Viscous*) 20 ml SWISH SWAL AC PRN PRN Reason: sore throat Last Admin: 11/02/16 22:30 Dose: 20 ml Lisinopril (Prinivil Tab*) 10 mg PO QAM [facility] Last Admin: 11/04/16 08:25 Dose: 10 mg Magnesium Citrate (Citrate Of Magnesia*) 15 ml PO BID [facility] Last Admin: 11/04/16 21:04 Dose: Not Given Melatonin (Melatonin (Nf)) 3 mg PO BEDTIME PRN; Protocol PRN Reason: Sleep Last Admin: 11/04/16 21:08 Dose: 3 mg Metoclopramide HCl (Reglan Iv*) 10 mg IV TID [facility] Last Admin: 11/04/16 20:53 Dose: 10 mg Nicotine (Nicotine Inhaler*) 10 mg INH Q2H PRN PRN Reason: CRAVING Omeprazole (Prilosec Cap*) 20 mg PO DAILY@0600 [facility] Last Admin: 11/05/16 05:26 Dose: 20 mg Ondansetron HCl (Zofran Inj*) 4 mg IV Q6H PRN PRN Reason: NAUSEA Oxycodone HCl (Roxycodone Tab*) 5 mg PO Q4H PRN PRN Reason: PAIN Last Admin: 11/01/16 21:56 Dose: 5 mg Polyethylene Glycol/Electrolytes (Miralax*) 17 gm PO Q12HR [facility] Last Admin: 11/04/16 20:50 Dose: 17 gm Potassium Chloride (Klor-Con Liquid*) 40 meq PO BID [facility] Last Admin: 11/04/16 20:52 Dose: 40 meq Prochlorperazine (Compazine Tab*) 10 mg PO Q6H PRN PRN Reason: NAUSEA Last Admin: 11/01/16 16:53 Dose: 10 mg Sodium Chloride (Sodium Chloride Tab*) 1 gm PO TID [facility] Trazodone HCl (Desyrel Tab*) 50 mg PO BEDTIME PRN PRN Reason: INSOMNIA Last Admin: 11/05/16 03:02 Dose: 50 mg Varenicline (Chantix (Nf)) 1 mg PO BID [facility] Last Admin: 11/04/16 20:52 Dose: 1 mg Assessment: 71 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 His Na has fallen off of IV replacement. Plan: -cont demeclocycline tid (just increased 2.19) -increase salt tabs to TID -2L NS bolus today -cont continuous tube feeds, tolerating 60 cc/hr -mag and K replacement IV (cisplatin induced nephrotoxicity) -full code
[2016-11-05] MEDS: KCL 20 MEQ/100 ML IVPREMIX* 20 MEQ/100 ML BAG IV SCH ×3 (10:41→18:34)
[2016-11-05] MEDS: Docusate CAP* 100 MG PO SCH ×2 (10:41→19:27)
[2016-11-05] MEDS: Demeclocycline TAB* 150 MG PO SCH ×3 (10:41→21:48)
[2016-11-05] MEDS: Sodium Chloride TAB* 1 GM PO SCH ×3 (10:42→21:48)
[2016-11-05] MEDS: Metoclopramide IV* 5 MG/ML 2 ML VIAL IV SCH ×3 (10:42→22:10)
[2016-11-05] MEDS: Polyethylene Glycol 3350* 17 GM PACKET PO SCH ×2 (10:42→21:37)
[2016-11-05] MEDS: Magnesium CITRATE* 300 ML BTL PO SCH ×2 (10:42→21:37)
[2016-11-05] MEDS: VARENICLINE 1 MG PO SCH ×2 (10:42→21:53)
[2016-11-05] MEDS: LISINOPRIL 10 MG PO SCH (10:42)
[2016-11-05] MEDS: Potassium Chloride LIQUID* 20 MEQ PACKET PO SCH ×2 (10:42→21:47)
[2016-11-05] MEDS ORDERED: KCL 20 MEQ/100 ML IVPREMIX* 20 MEQ/100 ML BAG ONE (18:31)
[2016-11-05] MEDS: Albuterol 2.5 MG/3 ML NEB.SOL* (0.083%) INH PRN (21:27)
[2016-11-05] MEDS: CMCS: Melatonin (NF) 3 MG TAB PO PRN (21:48)
[2016-11-06] MEDS: LEVOTHYROXINE 88 MCG PO SCH (05:44)
[2016-11-06] MEDS: Omeprazole CAP* 20 MG PO SCH (05:44)
[2016-11-06] MEDS: Heparin VIAL(*) 5000 UNITS/ML VIAL (FIVE THOUSAND) SUBCUT SCH ×3 (05:53→21:18)
[2016-11-06 06:28] LABS: Hematocrit 26 % (42-52); Hemoglobin 9.3 g/dl (14.0-18.0); Mean Corpuscular HGB Conc 35 g/dl (31-36); Mean Corpuscular Hemoglobin 32 pg (27-31); Mean Corpuscular Volume 90 fL (80-94); Mean Platelet Volume 8 um3 (7.4-10.4); Red Blood Count 2.93 10^6/ul (4.0-5.4); Red Cell Distribution Width 13 % (10.5-15); White Blood Count 5.8 10^3/ul (3.5-10.8)
[2016-11-06 06:45] LABS: BUN/Creatinine Ratio 18.8 (8-20); Calcium 8.2 mg/dL (8.6-10.3); EGFR Non-African American 123.6 (>60); Magnesium 1.7 mg/dL (1.9-2.7); Potassium 3.9 mmol/L (3.5-5.0)
[2016-11-06] MEDS ORDERED: Magnesium Sulfate 2 GM IV* 2 GM/50 ML BAG IVPB ONE (07:32)
--- NOTE | 2016-11-06 07:42 | PN ---
Progress Note - Progress Note SOAP: Subjective: frustrated that Na not higher. feels well. another BM yesterday. Objective: Vital Signs Temp Pulse Resp BP Pulse Ox 98.2 F 73 20 118/48 95 11/05/16 23:43 11/06/16 05:29 11/06/16 05:29 11/05/16 23:43 11/06/16 05:29 lying on side in NAD perr eomi ulceration on palate, dry CTA bl s1 s2 nl soft nt +bs peg in place no le edema A+O x 3, grossly nonfocal Laboratory Results - last 24 hr 11/06/16 11/06/16 05:50 05:50 WBC 5.8 RBC 2.93 L Hgb 9.3 L Hct 26 L MCV 90 MCH 32 H MCHC 35 RDW 13 Plt Count 195 MPV 8 Sodium 120 L Potassium 3.9 Chloride 87 L Carbon Dioxide 30 Anion Gap 3 BUN 12 Creatinine 0.64 L Est GFR ( Amer) 159.0 Est GFR (Non-Af Amer) 123.6 BUN/Creatinine Ratio 18.8 Glucose 121 H Calcium 8.2 L Magnesium 1.7 L Assessment: 71 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 His Na is only up to 120 after 2L yesterday. At this point I would like to consult Dr. Miguel to see if there are any other thoughts on how to get his Na up into a safer range. Plan: -cont demeclocycline tid (just increased 2.19) -increase salt tabs to TID -cont continuous tube feeds, tolerating 60 cc/hr -mag and K replacement IV (cisplatin induced nephrotoxicity) -full code
[2016-11-06 08:22] LABS: HDL Cholesterol 50.2 mg/dL
[2016-11-06] MEDS: Magnesium CITRATE* 300 ML BTL PO SCH ×3 (08:40→19:42)
[2016-11-06] MEDS: Docusate CAP* 100 MG PO SCH ×2 (08:40→19:51)
[2016-11-06] MEDS: Potassium Chloride LIQUID* 20 MEQ PACKET PO SCH ×2 (09:26→21:16)
[2016-11-06] MEDS: Demeclocycline TAB* 150 MG PO SCH ×3 (09:26→21:15)
[2016-11-06] MEDS: VARENICLINE 1 MG PO SCH ×2 (09:27→21:17)
[2016-11-06] MEDS: Sodium Chloride TAB* 1 GM PO SCH ×3 (09:27→21:15)
[2016-11-06] MEDS: LISINOPRIL 10 MG PO SCH (09:28)
[2016-11-06] MEDS: Metoclopramide IV* 5 MG/ML 2 ML VIAL IV SCH ×3 (09:29→21:17)
[2016-11-06] MEDS: Polyethylene Glycol 3350* 17 GM PACKET PO SCH ×2 (09:29→21:16)
[2016-11-06 13:44] LABS: Renal Sodium Excretion 1.2 %
--- NOTE | 2016-11-06 20:02 | CONS ---
NEPHROLOGY CONSULTATION: DATE OF CONSULT/DICTATION: 11/06/16 HISTORY OF PRESENT ILLNESS: Mr. Rajan is a 71-year-old gentleman with aggressively invasive tonsillar carcinoma, who has received chemotherapy and radiation. He was admitted with hyponatremia and has had significant interventions with salt tablets and demeclocycline. He was noted to be hypomagnesemic and his magnesium has been getting some replacement, and unfortunately his serum sodium concentration has really not come up. He has no orthostatic dizziness. His mouth is dry. He has had no edema. He has good urine output. Unfortunately, he has required significant volume administration because of his tube feedings. PAST MEDICAL HISTORY: His previous medical history is significant for hypertension, hypothyroidism, normocytic anemia. PAST SURGICAL HISTORY: Previous surgical history includes an appendectomy and a PowerPort placement. MEDICATIONS: His medications at the time of admission included: 1. Levothyroxine 88 mcg daily. 2. Lisinopril 10 mg every morning. 3. Ibuprofen 400 mg daily. 4. Varenicline tartrate 0.5 mg b.i.d. 5. Oxycodone with acetaminophen. 6. Prochlorperazine 10 mg daily. FAMILY HISTORY: Significant in that his father had esophageal and stomach cancer. SOCIAL HISTORY: He was a previous smoker. He was previous heavy drinker. He is , lives with his . REVIEW OF SYSTEMS: No visual disturbances. No hearing problems. No chest pain. No abdominal pain. PHYSICAL EXAM: He is a chronically ill-appearing white gentleman. His blood pressure is 124/53 with a pulse of 73. He is afebrile. Unfortunately, he has been getting somewhere in the vicinity of 3000 to 4000 mg of total intake per day and has been in slightly positive fluid balance the last few days. Significant portion of his intake is from his tube feedings and his tube feeding irrigation and flushes. On HEENT, he has no skin tenting. He has some coating to his tongue. He is anicteric. His neck revealed no jugular venous distention. His chest was clear. The heart revealed a regular rhythm without murmurs. The abdomen is soft and nontender. Bowel sounds were positive. He had no edema. LABORATORY DATA: A review of his laboratory studies reveals white count of 5.8 , hemoglobin of 9.3. Sodium of 120 and he has been between 117 and 120 over the past 6 days, potassium 3.9, chloride 87, total CO2 30, BUN 12, creatinine 0.64, glucose 121, calcium 8.2, and magnesium 1.7, he has been as low as 1.6, he has been receiving significant magnesium supplementation both orally and intravenously. Urine and serum osmolalities are not back yet. His fractional excretion of sodium was 1.2. IMPRESSION AND PLAN: Of significance, I noted that while he has been receiving demeclocycline, he has also been receiving magnesium citrate, although some doses have been missed and there has been almost simultaneous use of the demeclocycline and the magnesium citrate. Of significance, magnesium will chelate demeclocycline like any of the tetracyclines and as the result of his absorption of demeclocycline may have been quite poor. It would be nice to more aggressively fluid restrict him; however, since he requires tube feedings that is going to be difficult. He also has very dry mouth and is drinking water because of his dry mouth. I think the use of demeclocycline is reasonable , but we could split the dose so that is not given together with the magnesium citrate and this should be at least 90 minutes before or after demeclocycline where no magnesium citrate is given. Unfortunately, there can also be a problem with calcium supplementation and iron supplementation, preferably his tube feedings should be turned off for about 90 minutes before and after the demeclocycline dosing. I have discussed the case with Dr. Mcnamara. CC: Dr. Nuñez * [id number]/CPS #: [id number] MTDD
[2016-11-06] MEDS: traZODone TAB* 50 MG TAB PO PRN (21:15)
[2016-11-07] MEDS: Omeprazole CAP* 20 MG PO SCH (05:22)
[2016-11-07] MEDS: Heparin VIAL(*) 5000 UNITS/ML VIAL (FIVE THOUSAND) SUBCUT SCH ×2 (05:22→14:03)
[2016-11-07] MEDS: LEVOTHYROXINE 88 MCG PO SCH (05:22)
[2016-11-07] MEDS: Magnesium CITRATE* 300 ML BTL PO SCH (07:43)
[2016-11-07 09:18] VITALS: BP 138/60
[2016-11-07] MEDS: VARENICLINE 1 MG PO SCH (09:49)
[2016-11-07 09:52] LABS: Hematocrit 27 % (42-52); Hemoglobin 9.3 g/dl (14.0-18.0); Mean Corpuscular HGB Conc 34 g/dl (31-36); Mean Corpuscular Hemoglobin 31 pg (27-31); Mean Corpuscular Volume 91 fL (80-94); Mean Platelet Volume 8 um3 (7.4-10.4); Red Cell Distribution Width 13 % (10.5-15); White Blood Count 5.2 10^3/ul (3.5-10.8)
[2016-11-07] MEDS: Potassium Chloride LIQUID* 20 MEQ PACKET PO SCH (09:53)
[2016-11-07] MEDS: LISINOPRIL 10 MG PO SCH (09:55)
[2016-11-07] MEDS: Demeclocycline TAB* 150 MG PO SCH ×2 (09:55→14:18)
[2016-11-07] MEDS: Sodium Chloride TAB* 1 GM PO SCH ×2 (09:56→14:18)
[2016-11-07] MEDS: Polyethylene Glycol 3350* 17 GM PACKET PO SCH (09:57)
[2016-11-07] MEDS: Metoclopramide IV* 5 MG/ML 2 ML VIAL IV SCH ×2 (09:57→14:18)
[2016-11-07] MEDS: Docusate CAP* 100 MG PO SCH (09:57)
[2016-11-07 10:07] LABS: Albumin 2.6 g/dL (3.2-5.2); Calcium 8.4 mg/dL (8.6-10.3); EGFR African American 178.1 (>60); EGFR Non-African American 138.5 (>60); Globulin 3.1 g/dL (2-4); Magnesium 1.7 mg/dL (1.9-2.7); Potassium 4.2 mmol/L (3.5-5.0); Total Bilirubin 0.5 mg/dL (0.2-1.0); Total Protein 5.7 g/dL (6.4-8.9)
--- NOTE | 2016-11-07 11:39 | DS ---
DATE OF ADMISSION: 10/31/2016. DATE OF DISCHARGE: 11/07/2016. DISCHARGE DIAGNOSES: 1. Hyponatremia: Improving. 2. Head and neck cancer: On therapy, will follow-up with Dr. Nuñez regarding chemotherapy. 3. Hypothyroidism: Stable on replacement. 4. Hypertension: Stable. 5. Tobacco use: On Chantix and nicotine inhaler. DISCHARGE MEDICATIONS: 1. Tylenol 650 mg p.o. q.6 hours prn pain. 2. Albuterol inhaler 2.5 mg inhaled q.2 hours prn wheezing. 3. Demeclocycline 300 mg p.o. t.i.d., 90 minutes after mag citrate, hold tube feedings for 90 minutes before and 90 minutes after given. 4. Viscus Lidocaine 2 percent 20 ml swish and swallow before meals prn sore throat. 5. Magnesium citrate 15 ml p.o. at 0730 and 1930, given 90 minutes before Demeclocycline. 6. Melatonin 300 mg p.o. at bedtime. 7. Nicotine inhaler 10 mg inhaled q.2 hours prn cravings. 8. Omeprazole 20 mg p.o. q.0600, on an empty stomach. 9. Klor-Con liquid packets 40 mEq p.o. b.i.d. 10. Sodium chloride tabs 1 gm p.o. t.i.d. 11. Trazodone 50 mg p.o. at bedtime prn insomnia. 12. Docusate Sodium 200 mg p.o. b.i.d. 13. MiraLax 17 gm p.o. q.12 hours prn constipation. 14. Lisinopril 10 mg p.o. q.a.m. 15. Levothyroxine 88 mcg p.o. q.a.m. on empty stomach. 16. Chantix 0.5 mg p.o. b.i.d. 17. Percocet 5/325 one tab p.o. q.6 hours prn pain. 18. Prochlorperazine 10 mg p.o. q.6 hours prn nausea. HOSPITAL COURSE: Please see admission note for full history and physical. However briefly, Mr. Rajan is with our service due to diagnoses of squamous cell carcinoma of the oropharynx, having started chemo and radiation, who presented to the ER with difficulty swallowing and was found to be significantly hyponatremic. Of which to note, the patient has been struggling with on and off for several years with unknown source. The patient was admitted for IV fluids and consideration of options for replacement of electrolytes. Initially with hydration, Mr. Pérezs sodium did improve from 119 to 120; however, by the following day has resumed back down to 117. Subsequently, he was started of Demeclocycline. Over the next two days, Mr. Pérezs sodium continued to improve to 122; however, unfortunately on November 05 it dropped again to 118, rebounding to [address] Miguel of Nephrology was consulted yesterday on November 06 for consideration of management of his hyponatremia. During that time, Dr. Miguel suggested managing his hyponatremic replacement medications differently, avoiding co- administration of mag citrate and Demeclocycline due to concern for his situation. Mr. Rajan has also been educated regarding holding tube feedings for 90 minutes before and 90 minutes after his Demeclocycline. During his admission, Mr. Rajan has also been receiving continuous tube feedings and this will continue at home with support from [facility]. This has been set up by his Radiation Oncology team. It should be noted, Mr. Rajan did receive his first dose of Cisplatin on 10/29/2016, chemotherapy is being delayed related to admission and he will see Dr. Nuñez on November 13 in the afternoon. Mr. Rajan will be discharged today home with family. Again, plan for continuous infusion and oral medications to manage hyponatremia. He will be educated regarding timing of administration. He will return to our office tomorrow a.m. on November 08 following his radiation for repeat labs and nurse assessment. We will continue daily labs on November 09 and then again on November 12, as well as likely prior to this office office on November 13, depending on where his sodium levels are. Mr. Rajan has been educated regarding management of mucositis related to radiation, as well as encouraged to continue ambulation regularly. All questions were answered and he denies questions regarding plan of care. Forty minutes were spent with greater than 50 percent [id number] counseling. SIGRID DEL CID, FISH SMOKER [id number]/[facility] #: [id number] [facility] MEDICAL CENTERDakotah
== END 2016-11-07 15:00 | disposition home or self-care (01) | DRG 643 ==
LOC: ED 00:10 → MED 02:29 → OBSVTOIN 11-01 10:30
PROVIDERS: ADMIT Hospitalist; ATTEND Internal Medicine Hematology & Oncology
PROC: DW0 Radiation Therapy, Anatomical Regions, Beam Radiation (ICD-10-PCS; principal; 2016-11-01)
DX: E22.2 Syndrome of inappropriate secretion of antidiuretic hormone (principal); E43 Unspecified severe protein-calorie malnutrition; K56.7 Ileus, unspecified; C09.9 Malignant neoplasm of tonsil, unspecified; C76.0 Malignant neoplasm of head, face and neck; D64.9 Anemia, unspecified; E83.42 Hypomagnesemia; Z93.1 Gastrostomy status; Z68.1 Body mass index [BMI] 19.9 or less, adult; I10 Essential (primary) hypertension; E03.9 Hypothyroidism, unspecified; Z72.0 Tobacco use; M06.9 Rheumatoid arthritis, unspecified; Z80.0 Family history of malignant neoplasm of digestive organs; E87.6 Hypokalemia; T45.1X5A Adverse effect of antineoplastic and immunosuppressive drugs, initial encounter
CPT/HCPCS: 31623; 36415; 36591; 71010; 71020; 74020; 76000; 76705; 77336; 77386; 80048; 80053; 80061; 81003; 82533; 82570; 83605; 83735; 83930; 83935; 84100; 84134; 84300; 84443; 85025; 85027; 85610; 93005; 94640; 94760; 96361; 96365; 96366; 96367; 96413; 99211; 99232; 99233; 99239; 99406; A9270-GY; C1788; G0378; G0463; J0690; J1100; J1170; J1453; J1642; J1644; J2250; J2469; J2704; J2765; J3010; J3475; J3480; J9060

== ENCOUNTER 2016-11-08 12:51 | Inpatient (IN) | payer MEDICARE, BC ==
[2016-11-08] MEDS ORDERED: oxyCODONE/Acetamin 5/325 MG* TAB PEG TUBE PRN (13:18)
[2016-11-08] MEDS ORDERED: Lidocaine 2% VISCOUS* 15 ML UDC SWISH SWAL PRN (13:18)
[2016-11-08] MEDS ORDERED: Albuterol 2.5 MG/3 ML NEB.SOL* (0.083%) INH PRN (13:18)
[2016-11-08] MEDS ORDERED: Acetaminophen TAB* 325 MG PO PRN (13:18)
[2016-11-08] MEDS ORDERED: Polyethylene Glycol 3350* 17 GM PACKET PEG TUBE PRN (13:18)
[2016-11-08] MEDS ORDERED: Prochlorperazine TAB* 10 MG PEG TUBE PRN (13:18)
[2016-11-08] MEDS ORDERED: Nicotine Inhaler* 10 MG AMP INH PRN (13:18)
[2016-11-08] MEDS ORDERED: Ondansetron ODT TAB* 4 MG PO PRN (13:18)
[2016-11-08] MEDS ORDERED: Docusate CAP* 100 MG PO PRN (13:18)
[2016-11-08] MEDS ORDERED: NS 0.9% 1000 ML* 1,000 ML IV SCH (13:30)
[2016-11-08] MEDS ORDERED: Demeclocycline TAB* 150 MG PO SCH (14:00)
[2016-11-08] MEDS ORDERED: Mouth Piece, Nicotine* 1 EACH CARTRIDGE INH ONE (16:00)
[2016-11-08] MEDS ORDERED: Sodium Chloride TAB* 1 GM PEG TUBE SCH (16:00)
[2016-11-08] MEDS: Enoxaparin(*) 40 MG/0.4 ML SYR SUBCUT SCH (17:35)
[2016-11-08] MEDS: Sodium Chloride TAB* 1 GM PEG TUBE SCH ×2 (18:28→22:31)
[2016-11-08] MEDS: Demeclocycline TAB* 150 MG PO SCH ×2 (19:48→19:54)
[2016-11-08] MEDS: Magnesium CITRATE* 300 ML BTL PEG TUBE SCH (19:49)
[2016-11-08] MEDS: traZODone TAB* 50 MG TAB PEG TUBE PRN (21:32)
[2016-11-08] MEDS: CMCS: Melatonin (NF) 3 MG TAB PO SCH (21:32)
[2016-11-08] MEDS: VARENICLINE 0.5 MG TAB(NF) PO SCH (21:33)
[2016-11-09] MEDS: Omeprazole CAP* 20 MG PO SCH (05:07)
[2016-11-09] MEDS: Levothyroxine TAB* 88 MCG TAB PEG TUBE SCH (05:07)
[2016-11-09 05:36] LABS: Hematocrit 27 % (42-52); Hemoglobin 9.1 g/dl (14.0-18.0); Mean Corpuscular HGB Conc 34 g/dl (31-36); Mean Corpuscular Hemoglobin 31 pg (27-31); Mean Corpuscular Volume 91 fL (80-94); Mean Platelet Volume 8 um3 (7.4-10.4); Red Blood Count 2.91 10^6/ul (4.0-5.4); Red Cell Distribution Width 13 % (10.5-15)
[2016-11-09 05:55] LABS: Albumin 2.5 g/dL (3.2-5.2); BUN/Creatinine Ratio 20.7 (8-20); Calcium 8.2 mg/dL (8.6-10.3); EGFR African American 178.1 (>60); EGFR Non-African American 138.5 (>60); Globulin 3.1 g/dL (2-4); Magnesium 1.5 mg/dL (1.9-2.7); Total Bilirubin 0.4 mg/dL (0.2-1.0); Total Protein 5.6 g/dL (6.4-8.9)
[2016-11-09] MEDS ORDERED: Magnesium Sulf 4 GM/100 ML IV* 4,000 MG/100 ML BAG IVPB ONE (06:25)
--- NOTE | 2016-11-09 08:45 | PN ---
Progress Note - Progress Note SOAP: Subjective: feeling about the same today. tolerable mouth discomfort. able to eat some pureed foods Objective: Vital Signs Temp Pulse Resp BP Pulse Ox 97.9 F 74 21 127/55 100 11/09/16 07:56 11/09/16 07:56 11/09/16 07:56 11/09/16 07:56 11/09/16 07:56 perr eomi op dry, crusted palatal lesion cta bl s1 s2 distant soft nt clean peg no le edema a+O x 3 Laboratory Results - last 24 hr 11/09/16 11/09/16 05:03 05:03 WBC 5.0 RBC 2.91 L Hgb 9.1 L Hct 27 L MCV 91 MCH 31 MCHC 34 RDW 13 Plt Count 196 MPV 8 Neut % (Auto) 85.7 H Lymph % (Auto) 4.7 L [place] % (Auto) 7.3 Eos % (Auto) 1.7 Baso % (Auto) 0.6 Absolute Neuts (auto) 4.3 Absolute Lymphs (auto) 0.2 L Absolute Monos (auto) 0.4 Absolute Eos (auto) 0.1 Absolute Basos (auto) 0 Absolute Nucleated RBC 0 Nucleated RBC % 0.1 Sodium 121 L Potassium 4.0 Chloride 88 L Carbon Dioxide 29 Anion Gap 4 BUN 12 Creatinine 0.58 L Est GFR ( Amer) 178.1 Est GFR (Non-Af Amer) 138.5 BUN/Creatinine Ratio 20.7 H Glucose 118 H Calcium 8.2 L Magnesium 1.5 L Total Bilirubin 0.40 AST 13 ALT 14 Alkaline Phosphatase 56 Total Protein 5.6 L Albumin 2.5 L Globulin 3.1 Albumin/Globulin Ratio 0.8 L Assessment: 71 yo M w T4N2b SCC of Oropharynx on cisplatin/RT readmitted with hyponatremia. Improved today after 2L inpatient fluids yesterday, with goal of maintaining OFF hydration. Greatly appreciate nutrition consultation. Hyponatremia: -will get jevity 1.5 for inpatient and home feeds to decrease fluids (goal of 1L total daily). -PO protein to increase osmotic diuresis from gut -increased demeclocycline to max daily dose of 1200 mg -cont salt tabs TID Hypomagnesemia: related to cisplatin -will replete mag IV today and increase PO to 30 cc bid (sodium and mag must be timed 90 mins separate from demeclocycline) H+N cancer: -can get RT today -cycle 1 day 11 DVT prophylaxis: lovenox full code
[2016-11-09] MEDS: Magnesium CITRATE* 300 ML BTL PEG TUBE SCH ×4 (10:02→22:22)
[2016-11-09] MEDS: VARENICLINE 0.5 MG TAB(NF) PO SCH ×2 (10:04→20:54)
[2016-11-09] MEDS: Demeclocycline TAB* 150 MG PO SCH ×3 (10:04→20:54)
[2016-11-09] MEDS: Lisinopril TAB* 10 MG PEG TUBE SCH (10:04)
[2016-11-09] MEDS: Sodium Chloride TAB* 1 GM PEG TUBE SCH ×3 (12:02→22:22)
[2016-11-09] MEDS: Enoxaparin(*) 40 MG/0.4 ML SYR SUBCUT SCH (14:57)
[2016-11-09] MEDS: CMCS: Melatonin (NF) 3 MG TAB PO SCH (20:54)
[2016-11-09] MEDS: traZODone TAB* 50 MG TAB PEG TUBE PRN (22:23)
[2016-11-10] MEDS: Omeprazole CAP* 20 MG PO SCH (05:57)
[2016-11-10] MEDS: Levothyroxine TAB* 88 MCG TAB PEG TUBE SCH (05:57)
[2016-11-10 06:14] LABS: Hematocrit 25 % (42-52); Hemoglobin 8.7 g/dl (14.0-18.0); Mean Corpuscular HGB Conc 34 g/dl (31-36); Mean Corpuscular Hemoglobin 31 pg (27-31); Mean Corpuscular Volume 91 fL (80-94); Mean Platelet Volume 7 um3 (7.4-10.4); Red Blood Count 2.78 10^6/ul (4.0-5.4); Red Cell Distribution Width 13 % (10.5-15); White Blood Count 4.6 10^3/ul (3.5-10.8)
[2016-11-10 06:32] LABS: Albumin 2.4 g/dL (3.2-5.2); EGFR African American 202.1 (>60); EGFR Non-African American 157.1 (>60); Globulin 2.9 g/dL (2-4); Magnesium 1.8 mg/dL (1.9-2.7); Potassium 3.7 mmol/L (3.5-5.0); Total Bilirubin 0.3 mg/dL (0.2-1.0); Total Protein 5.3 g/dL (6.4-8.9)
[2016-11-10 07:39] VITALS: BP 128/60
[2016-11-10] MEDS: VARENICLINE 0.5 MG TAB(NF) PO SCH (08:52)
[2016-11-10] MEDS: Demeclocycline TAB* 150 MG PO SCH (09:00)
[2016-11-10] MEDS: Lisinopril TAB* 10 MG PEG TUBE SCH (09:00)
[2016-11-10] MEDS: Sodium Chloride TAB* 1 GM PEG TUBE SCH (10:34)
[2016-11-10] MEDS: Magnesium CITRATE* 300 ML BTL PEG TUBE SCH (10:34)
--- NOTE | 2016-12-20 10:54 | DS ---
DISCHARGE SUMMARY: DATE OF ADMISSION: 11/08/16 DATE OF DISCHARGE: 11/10/16 REASON FOR ADMISSION: Recurrent hyponatremia. HISTORY: Ross Rajan is a 71-year-old male with a squamous cell carcinoma of the oropharynx, T4N2M0, who was recently hospitalized for severe hyponatremia. He has been in for 6 days and had presented with a sodium of 118. He was treated with free water restriction, salt tabs t.i.d., demeclocycline t.i.d., and improved with a sodium of 121 only by the time of discharge. Following the discharge the day prior to this admission, he came back here with a sodium of 116. He felt quite fatigued. He was on cycle 1 day 10 of his cisplatin radiation therapy for his newly diagnosed oropharyngeal carcinoma. He had been taking his demeclocycline and timing it 90 minutes away from his sodium and his magnesium. Because he did have a significant drop in his sodium level, the decision was made to admit him to the hospital and try to better regulate the hyponatremia. HOSPITAL COURSE: He was brought in the hospital and increased to a maximum dose of demeclocycline, continued on salt tablets, given 2 L of normal saline, and oral fluids were restricted. We changed the protein powder given through the PEG tube. Decision was made to try to use Nepro to further reduce the amount of fluid he will be receiving via his PEG tube. With this over the next 2 days, his sodium level did improve. At the time of discharge, his sodium had come up to 124 and he was feeling well. There were some issues trying to get him a pump for his tube feedings as his was having difficulty trying to give him boluses and having him tolerate it. Even though the pump was available , the decision was made to try the more concentrated Nepro, which is usually used as a renal supplement at home for a day until the pump would arrive. MEDICATIONS AT THE TIME OF DISCHARGE: Included: 1. Demeclocycline 300 mg at bedtime. 2. Demeclocycline 450 mg b.i.d. in addition for a total dose of 1200 mg per day. 3. Docusate sodium 200 mg b.i.d. 4. Levothyroxine 88 mcg daily. 5. Sodium tabs 2 g t.i.d. not to exceed 6 g per day. 6. Trazodone 50 mg by PEG tube at bedtime. 7. Lisinopril 10 mg daily. 8. Chantix 0.5 mg per PEG tube twice a day. 9. Compazine 10 mg q.6 hours as needed. 10. Albuterol 2.5 mg q.2 hours p.r.n. 11. Nicotine inhaler. 12. Lidocaine patch. 13. Zofran 4 mg q.6 hours p.r.n. DISCHARGE DIAGNOSES: 1. Severe hyponatremia responding to therapy. 2. Oropharyngeal carcinoma. [id number]/[facility] #: [id number] [facility]
== END 2016-11-10 12:55 | disposition home or self-care (01) | DRG 641 ==
LOC: MED 15:30
PROVIDERS: ADMIT Internal Medicine Hematology & Oncology; ATTEND Internal Medicine Hematology & Oncology
PROC: D90 Radiation Therapy, Ear, Nose, Mouth and Throat, Beam Radiation (ICD-10-PCS; principal; 2016-11-09)
DX: E87.1 Hypo-osmolality and hyponatremia (principal); E83.42 Hypomagnesemia; C10.9 Malignant neoplasm of oropharynx, unspecified; M06.9 Rheumatoid arthritis, unspecified; F17.210 Nicotine dependence, cigarettes, uncomplicated; F10.21 Alcohol dependence, in remission; I10 Essential (primary) hypertension; E03.9 Hypothyroidism, unspecified; Z79.1 Long term (current) use of non-steroidal anti-inflammatories (NSAID); Z79.891 Long term (current) use of opiate analgesic; Z79.899 Other long term (current) drug therapy; Z93.1 Gastrostomy status
CPT/HCPCS: A9270-GY; G0463; G8427; J1642; J1650; J3475

== ENCOUNTER 2016-12-02 19:08 | Inpatient (IN) | payer MEDICARE, BC ==
[2016-12-02] MEDS ORDERED: Acetaminophen ADULT LIQ* 650 MG/20.3 ML UDC PO ONE (20:48)
[2016-12-02] MEDS ORDERED: Ondansetron INJ* 2 MG/ML VIAL IV ONE (20:49)
[2016-12-02] MEDS ORDERED: Morphine INJ* 4 MG/ML 1 ML CARPUJECT IV ONE (20:49)
[2016-12-02] MEDS ORDERED: Levofloxacin 750 MG IVPREMIX(* 750 MG/150 ML BAG IVPB ONE (20:54)
[2016-12-02 21:24] LABS: Urine Bilirubin Negative (Negative); Urine Glucose Negative (Negative); Urine Nitrite Negative (Negative)
--- NOTE | 2016-12-02 21:32 | RAD ---
Indication: Fever. History of throat cancer on chemotherapy and radiation. Difficulty clearing secretions. Comparison: November 23, 2016 Technique: Upright AP 2058 hours Report: Elevated lung volumes and both coarsening and rarefaction of the interstitial markings. Patchy pulmonary consolidation in the RIGHT lung most confluent in the perihilar region and at the lung base consistent with pneumonia given absence of volume loss to favor atelectasis. Negative for pleural effusion or pneumothorax. Tip of LEFT chest port at level of superior vena cava RIGHT atrial junction directed central. Negative for cardiomegaly. Unremarkable central pulmonary vasculature. Fracture with healing response at the surgical neck of the LEFT humerus is unchanged. IMPRESSION: The constellation of findings favors pneumonia within the RIGHT mid to lower lung zone.
[2016-12-02] MEDS: NS 0.9% 1000 ML* 2,000 ML IV ONE ×2 (21:50→23:56)
[2016-12-02 21:54] LABS: Comments Flag Yes; Hematocrit 26 % (42-52); Hemoglobin 8.7 g/dl (14.0-18.0); Mean Corpuscular HGB Conc 33 g/dl (31-36); Mean Corpuscular Hemoglobin 31 pg (27-31); Mean Corpuscular Volume 93 fL (80-94); Mean Platelet Volume 7 um3 (7.4-10.4); Red Blood Count 2.82 10^6/ul (4.0-5.4); Red Cell Distribution Width 15 % (10.5-15)
[2016-12-02 21:55] LABS: Add Diff/Slide Review? Slide Review Added
[2016-12-02 22:04] LABS: ALT 10 U/L (7-52); AST 12 U/L (13-39); Albumin 2.7 g/dL (3.2-5.2); Alkaline Phosphatase 57 U/L (34-104); Anion Gap 10 mmol/L (2-11); BUN/Creatinine Ratio 25.7 (8-20); Blood Urea Nitrogen 18 mg/dL (6-24); C Reactive Protein 87.44 mg/L (< 5.00); CO2 Carbon Dioxide 25 mmol/L (22-32); Calcium 8.5 mg/dL (8.6-10.3); Chloride 99 mmol/L (101-111); EGFR African American 143.4 (>60); EGFR Non-African American 111.5 (>60); Globulin 3.3 g/dL (2-4); Glucose 89 mg/dL (70-100); Lipase < 10 U/L (11.0-82.0); Potassium 4.2 mmol/L (3.5-5.0); Sodium 134 mmol/L (133-145)
[2016-12-02] MEDS ORDERED: Cefepime(*) 2 GM in NS 0.9% 50 ML* 50 ML IVPB ONE (22:09)
[2016-12-02] MEDS ORDERED: HYDROcodone/ACET. 7.5/325 LIQ* 15 ML UDC PO PRN (22:59)
[2016-12-02] MEDS ORDERED: Albuterol 2.5 MG/3 ML NEB.SOL* (0.083%) INH PRN (22:59)
[2016-12-02] MEDS ORDERED: Lidocaine 2% VISCOUS* 15 ML UDC SWISH SWAL PRN (22:59)
[2016-12-02] MEDS ORDERED: traZODone TAB* 50 MG TAB PEG TUBE PRN (22:59)
[2016-12-02] MEDS ORDERED: Acetaminophen ADULT LIQ* 650 MG/20.3 ML UDC PEG TUBE PRN (22:59)
[2016-12-02] MEDS ORDERED: Demeclocycline TAB* 150 MG PO SCH (23:00)
[2016-12-02] MEDS ORDERED: NS 0.9% 50 ML* 50 ML ONE (23:20)
[2016-12-03] MEDS: Cefepime(*) 2 GM in NS 0.9% 50 ML* 50 ML IVPB SCH ×4 (00:45→23:59)
--- NOTE | 2016-12-03 01:10 | ED ---
ISupa,Del, scribed for Lukas Clark MD on 12/02/16 at 2050 . HPI Febrile Illness - HPI Summary HPI Summary: This 71 y/o male presents to ED for acute fever since 1800 PM. present at bedside reports temperature of 101.6 F at time of onset. Temperature of 100.5 F is noted at triage. Pt reports positive sputum production and sore throat. Sputum is mucousy and bloody at times. expresses concerns about increased urinary frequency today. Negative rash. PMHx is significant for throat CA with last radiology therapy 2 days ago and last chemo on 11/19/2016. Last WBC was checked 2 days ago and indicated wnl. Pt controls pain with hydrocodone q4h, and last taken 1800 PM today. - History of Current Complaint Chief Complaint: EDFever Time Seen by Provider: 12/02/16 20:36 Hx Obtained From: Patient, Family/Black Off Worker - present at bedside, Medical Records Onset/Duration: Started Hours Ago, Still Present Timing: Constant Pain Intensity: 4 Pain Scale Used: 0-10 Numeric Aggravating Factors: Nothing Alleviating Factors: Nothing Associated Signs and Symptoms: Cough - productive cough, Sore Throat - Additional Pertinent History Primary Care Physician: [id number] - Allergy/Home Medications Allergies/Adverse Reactions: Allergies Allergy/AdvReac Type Severity Reaction Status Date / Time No Known Allergies Allergy Verified 12/02/16 19:25 PMH/Surg Hx/FS Hx/Imm Hx Endocrine/Hematology History: Reports: Hx Thyroid Disease - HYPOTHYROIDISM Cardiovascular History: Reports: Hx Hypertension - CONTROL WITH MEDS Respiratory History: Reports: Other Respiratory Problems/Disorders - TUMOR IN THROAT, TROUBLE DISCHARGING MUCUS Musculoskeletal History: Reports: Hx Arthritis - RHEUMATOID Sensory History: Denies: Hx Contacts or Glasses, Hx Hearing Aid Opthamlomology History: Denies: Hx Contacts or Glasses - Cancer History Cancer Type, 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 10/22/2016 EGD WITH PEG TUBE PLACEMENT Hx Anesthesia Reactions: No - LOCAL Infectious Disease History: No Infectious Disease History: Denies: Traveled Outside the [place] in Last 30 Days - Family History Known Family History: Negative: Other - No FHx of malignant hyperthermia or anesthesia reaction. - Social History Alcohol Use: None Hx Substance Use: No Substance Use Type: Reports: None Hx Tobacco Use: Yes Smoking Status (MU): Former Smoker Type: Cigarettes Amount Used/How Often: 6-8 CIGARETTES PER DAY FOR ABOUT 40 YEARS Have You Smoked in the Last Year: Yes Review of Systems Positive: Fever Positive: Sore Throat Positive: Cough - productie cough Negative: Rash Negative: Anxious, Depressed All Other Systems Reviewed And Are Negative: Yes Physical Exam Triage Information Reviewed: Yes Vital Signs On Initial Exam: Initial Vitals Temp Pulse Resp BP Pulse Ox 100.5 F 99 16 151/63 99 12/02/16 19:22 12/02/16 19:22 12/02/16 19:22 12/02/16 19:22 12/02/16 19:22 Vital Signs Reviewed: Yes Appearance: Positive: Ill-Appearing - mild Skin: Positive: Warm, Skin Color Reflects Adequate Perfusion, Dry Head/Face: Positive: Normal Head/Face Inspection Eyes: Positive: EOMI, HEATHER ENT: Positive: Normal ENT inspection - oral mucosa moist Neck: Positive: Supple, Nontender Respiratory/Lung Sounds: Positive: Rhonchi Cardiovascular: Negative: Tachycardia Abdomen Description: Positive: Nontender, No Organomegaly, Soft Bowel Sounds: Positive: Present Musculoskeletal: Positive: Strength/ROM Intact Neurological: Positive: Sensory/Motor Intact, Alert, Oriented to Person Place, Time Psychiatric: Positive: Affect/Mood Appropriate AVPU Assessment: Alert Diagnostics - Vital Signs Vital Signs Temp Pulse Resp BP Pulse Ox 12/02/16 19:22 100.5 F 99 16 151/63 99 - Laboratory Lab Results: Lab Results 12/02/16 12/02/16 12/02/16 Range/Units 20:32 21:30 21:30 WBC 1.0 L (3.5-10.8) 10^3/ul RBC 2.82 L (4.0-5.4) 10^6/ul Hgb 8.7 L (14.0-18.0) g/dl Hct 26 L (42-52) % MCV 93 (80-94) fL MCH 31 (27-31) pg MCHC 33 (31-36) g/dl RDW 15 (10.5-15) % Plt Count 248 (150-450) 10^3/ul MPV 7 L (7.4-10.4) um3 Neut % (Auto) 67.3 (38-83) % Lymph % (Auto) 4.7 L (25-47) % Nelson % (Auto) 26.8 H (1-9) % Eos % (Auto) 0.2 (0-6) % Baso % (Auto) 1.0 (0-2) % Absolute Neuts (auto) 0.7 L* (1.5-7.7) 10^3/ul Absolute Lymphs (auto) 0 L (1.0-4.8) 10^3/ul Absolute Monos (auto) 0.3 (0-0.8) 10^3/ul Absolute Eos (auto) 0 (0-0.6) 10^3/ul Absolute Basos (auto) 0 (0-0.2) 10^3/ul Absolute Nucleated RBC 0 10^3/ul Nucleated RBC % 0.1 INR (Anticoag Therapy) 0.96 (0.89-1.11) APTT 32.7 (26.0-36.3) seconds Sodium (133-145) mmol/L Potassium (3.5-5.0) mmol/L Chloride (101-111) mmol/L Carbon Dioxide (22-32) mmol/L Anion Gap (2-11) mmol/L BUN (6-24) mg/dL Creatinine (0.67-1.17) mg/dL Est GFR ( Amer) (>60) Est GFR (Non-Af Amer) (>60) BUN/Creatinine Ratio (8-20) Glucose (70-100) mg/dL Lactic Acid (0.5-2.0) mmol/L Calcium (8.6-10.3) mg/dL Total Bilirubin (0.2-1.0) mg/dL AST (13-39) U/L ALT (7-52) U/L Alkaline Phosphatase (34-104) U/L C-Reactive Protein (< 5.00) mg/L Total Protein (6.4-8.9) g/dL Albumin (3.2-5.2) g/dL Globulin (2-4) g/dL Albumin/Globulin Ratio (1-3) Lipase (11.0-82.0) U/L Urine Color Yellow Urine Appearance Clear Urine pH 5.0 (5-9) Ur Specific Catron 1.011 (1.010-1.030) Urine Protein Negative (Negative) Urine Ketones Negative (Negative) Urine Blood Negative (Negative) Urine Nitrate Negative (Negative) Urine Bilirubin Negative (Negative) Urine Urobilinogen Negative (Negative) Ur Leukocyte Esterase Negative (Negative) Urine Glucose Negative (Negative) 12/02/16 12/02/16 Range/Units 21:30 21:30 WBC (3.5-10.8) 10^3/ul RBC (4.0-5.4) 10^6/ul Hgb (14.0-18.0) g/dl Hct (42-52) % MCV (80-94) fL MCH (27-31) pg MCHC (31-36) g/dl RDW (10.5-15) % Plt Count (150-450) 10^3/ul MPV (7.4-10.4) um3 Neut % (Auto) (38-83) % Lymph % (Auto) (25-47) % Nelson % (Auto) (1-9) % Eos % (Auto) (0-6) % Baso % (Auto) (0-2) % Absolute Neuts (auto) (1.5-7.7) 10^3/ul Absolute Lymphs (auto) (1.0-4.8) 10^3/ul Absolute Monos (auto) (0-0.8) 10^3/ul Absolute Eos (auto) (0-0.6) 10^3/ul Absolute Basos (auto) (0-0.2) 10^3/ul Absolute Nucleated RBC 10^3/ul Nucleated RBC % INR (Anticoag Therapy) (0.89-1.11) APTT (26.0-36.3) seconds Sodium 134 (133-145) mmol/L Potassium 4.2 (3.5-5.0) mmol/L Chloride 99 L (101-111) mmol/L Carbon Dioxide 25 (22-32) mmol/L Anion Gap 10 (2-11) mmol/L BUN 18 (6-24) mg/dL Creatinine 0.70 (0.67-1.17) mg/dL Est GFR ( Amer) 143.4 (>60) Est GFR (Non-Af Amer) 111.5 (>60) BUN/Creatinine Ratio 25.7 H (8-20) Glucose 89 (70-100) mg/dL Lactic Acid 0.7 (0.5-2.0) mmol/L Calcium 8.5 L (8.6-10.3) mg/dL Total Bilirubin 0.30 (0.2-1.0) mg/dL AST 12 L (13-39) U/L ALT 10 (7-52) U/L Alkaline Phosphatase 57 (34-104) U/L C-Reactive Protein 87.44 H (< 5.00) mg/L Total Protein 6.0 L (6.4-8.9) g/dL Albumin 2.7 L (3.2-5.2) g/dL Globulin 3.3 (2-4) g/dL Albumin/Globulin Ratio 0.8 L (1-3) Lipase < 10 L (11.0-82.0) U/L Urine Color Urine Appearance Urine pH (5-9) Ur Specific Catron (1.010-1.030) Urine Protein (Negative) Urine Ketones (Negative) Urine Blood (Negative) Urine Nitrate (Negative) Urine Bilirubin (Negative) Urine Urobilinogen (Negative) Ur Leukocyte Esterase (Negative) Urine Glucose (Negative) Result Diagrams: 12/02/16 21:30 12/02/16 21:30 Lab Statement: Any lab studies that have been ordered have been reviewed, and results considered in the medical decision making process. - Radiology CXR Xray Interpretation: Positive (See Comments) - The constellation of findings favors pneumonia within the RIGHT mid to lower lung zone. Radiology Interpretation Completed By: Radiologist Course/Dx - Course Assessment/Plan: ADMIT HOSPITALIST STABLE. - Diagnoses Provider Diagnoses: Neutropenic fever - Provider Notifications Discussed Care Of Patient With: Dr. Rico (Hospitalist) at 2255 PM Time Discussed With Above Provider: 22:55 Instructed by Provider To: Admit As Inpatient Discharge - Discharge Plan Condition: Stable Disposition: ADMITTED TO [facility] documentation as recorded by the Supa gonzales Soohyun accurately reflects the service I personally performed and the decisions made by me, Lukas Clark MD.
[2016-12-03] MEDS: NS 0.9% 1000 ML* 1,000 ML IV SCH ×2 (01:25→13:53)
[2016-12-03] MEDS ORDERED: traZODone TAB* 50 MG TAB ONE (02:06)
[2016-12-03] MEDS ORDERED: Demeclocycline TAB* 150 MG SCH ×4 (02:27→09:20)
[2016-12-03] MEDS: HYDROcodone/ACET. 7.5/325 LIQ* 15 ML UDC PEG TUBE PRN ×5 (02:55→22:01)
[2016-12-03] MEDS ORDERED: HYDROmorphone INJ* 1 MG/ML CARPUJECT SYRINGE ONE (04:40)
[2016-12-03] MEDS: Heparin VIAL(*) 5000 UNITS/ML VIAL (FIVE THOUSAND) SUBCUT SCH ×3 (05:58→21:59)
[2016-12-03] MEDS ORDERED: Levothyroxine TAB* 88 MCG TAB PEG TUBE SCH (06:00)
[2016-12-03 06:02] LABS: Hematocrit 16 % (42-52); Mean Corpuscular HGB Conc 34 g/dl (31-36); Mean Corpuscular Hemoglobin 32 pg (27-31); Mean Corpuscular Volume 93 fL (80-94); Mean Platelet Volume 7 um3 (7.4-10.4); Red Blood Count 1.76 10^6/ul (4.0-5.4); Red Cell Distribution Width 15 % (10.5-15); White Blood Count 1.3 10^3/ul (3.5-10.8)
[2016-12-03 06:05] LABS: Comments Flag Yes
[2016-12-03 06:10] LABS: Hemoglobin 5.5 g/dl (14.0-18.0)
[2016-12-03 06:11] LABS: Add Diff/Slide Review? Slide Review Added
[2016-12-03] MEDS ORDERED: Magnesium CITRATE* 300 ML BTL PEG TUBE SCH (07:30)
[2016-12-03 08:05] LABS: Hematocrit 18 % (42-52); Mean Corpuscular HGB Conc 34 g/dl (31-36); Mean Corpuscular Hemoglobin 31 pg (27-31); Mean Corpuscular Volume 93 fL (80-94); Mean Platelet Volume 7 um3 (7.4-10.4); Red Blood Count 1.92 10^6/ul (4.0-5.4); Red Cell Distribution Width 15 % (10.5-15); White Blood Count 1.6 10^3/ul (3.5-10.8)
[2016-12-03 08:10] LABS: Comments Flag Yes
--- NOTE | 2016-12-03 08:50 | HP ---
HISTORY AND PHYSICAL: DATE OF ADMISSION: 12/02/16. CHIEF COMPLAINT: Fever. HISTORY OF PRESENT ILLNESS: The patient is a 71-year-old gentleman with a history of laryngeal cancer who had woken up this morning stating he simply did not feel well. His , knowing what she had to look for, took his temperature and said it was 97.7 degrees. The patient continued to be tired all day and was feeling just "crappy". He was taking hydrocodone every four hours. He got a dose and then about 6 p.m. started shaking uncontrollably. At that time, his temperature was 101.6 degrees. She called the on-call oncologist who told her to go to the emergency room. The only complaint he had was his lower back was hurting, but nothing more specific. He has also been very thirsty, specifically for cold water which is unusual for him. He states he has not been urinating as much either. He states he has slight abdominal discomfort, but would not really note that it's been significant. His last chemo treatment was on the 11/29/16. He gets radiation therapy daily. PAST MEDICAL HISTORY: He has a past medical history significant for arthritis, hypertension, hypothyroidism, hyponatremia, tonsillar cancer, normocytic anemia , and tobacco use disorder. PAST SURGICAL HISTORY: He has a past surgical history significant for appendectomy. CURRENT MEDICATIONS: Are as follows: 1. Lidocaine 2% viscous 15 cc swish and swallow before meals. 2. MiraLax 17 g via PEG tube q.12 hours as needed. 3. Tylenol 650 mg every six hours as needed. 4. Synthroid 88 mcg daily. 5. Zofran 4 mg every six hours as needed. 6. Hydrocodone Elixir 15 cc every four hours as needed. 7. Omeprazole 20 mg via PEG tube q.a.m. 8. Compazine 10 mg via PEG tube q.6 hours p.r.n. 9. Potassium chloride 20 mEq via PEG daily. 10. Melatonin 3 mg via PEG at bedtime. 11. Albuterol nebulizer 2.5 inhaled q.2 hours as needed. 12. Demeclocycline at 9 and 2, and 300 mg at bedtime. 13. Sodium chloride 2 grams three times a day as needed. 14. Magnesium citrate 15 cc via PEG tube in the morning and afternoon. 15. Lisinopril 10 mg via PEG tube in the morning. 16. Trazodone 50 mg via PEG tube as needed. ALLERGIES: He has no know drug allergies. SOCIAL HISTORY: Former smoker; quit recently. Ex-alcohol abuse until August of 2016; was drinking 12 beers a day. No recreational drug use. , and lives with his . 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 The patient is a full code. FAMILY HISTORY: Significant that his father from esophageal/ stomach cancer. REVIEW OF SYSTEMS: A 14-point review of systems is completed with the patient. All pertinent positives and negatives are in the history of present illness, otherwise it is negative. PHYSICAL EXAMINATION GENERAL: A pleasant gentleman lying in bed, in no acute distress. VITAL SIGNS: Temperature 98 degrees, heart rate 81 beats per minute, respiratory rate 15 breaths per minute, pulse ox 96%, blood pressure 119/50. HEENT: Normocephalic and atraumatic. Pupils are equal, round and reactive to light. Moist mucous membranes. NECK: Supple. No JVD, bruits, palpable thyroid or lymphadenopathy. CHEST: Clear to auscultation and percussion bilaterally. CARDIOVASCULAR: S1, S2 appreciated. ABDOMEN: Positive bowel sounds in all 4 quadrants. Soft, nontender, and nondistended. EXTREMITIES: No cyanosis, clubbing, or edema. NEUROLOGIC: Alert and oriented x3. Moves all extremities. SKIN: No rashes or abnormalities. LABORATORY DATA: White count 1.0, hemoglobin 8.7, hematocrit 26, absolute neutrophils 0.7, INR 0.96. Sodium 134, potassium 4.2, chloride 99, CO2 25, BUN 18, creatinine 0.70, glucose 89. Urinalysis is unremarkable. Chest x-ray shows constellation of findings favors pneumonia within the right mid to lower lung zone. ASSESSMENT AND PLAN: 1. Neutropenic fever. Could be from pneumonia. Place him cefepime 2 g IV q.12 hours. We will get urine for Legionella and pneumococcal antigen, and sputum for C and S. Oncology to see tomorrow. May benefit from ID consultation if not improved. 2. Hyponatremia. Continue demeclocycline. Be cautious with increased fluid intake today. 3. Gastroesophageal reflux disease. Stable. Continue on omeprazole. 4. Insomnia. Stable. Continue melatonin. 5. Hypothyroidism. Stable. Continue Synthroid. 6. FEN. Nepro four cans a day through PEG tube. 5. DVT prophylaxis. Heparin subcu. 6. The patient is a full code. TIME SPENT: Over 75 minutes were spent on this H and P, more than 40 minutes of which were spent in direct [id number] contact with the patient in evaluation, physical exam, counseling, and coordination of care. CC: Paco Nuñez MD; Claudia George MD; Jan Conrad MD. * [id number]/[facility] #: [id number] MTDD
[2016-12-03] MEDS ORDERED: Lisinopril TAB* 10 MG PEG TUBE SCH (09:00)
[2016-12-03] MEDS ORDERED: Omeprazole CAP* 20 MG SCH (09:00)
[2016-12-03] MEDS ORDERED: Sodium Chloride TAB* 1 GM PEG TUBE SCH ×2 (09:00→09:20)
[2016-12-03] MEDS ORDERED: Potassium Chloride LIQUID* 20 MEQ PACKET PEG TUBE SCH (09:00)
[2016-12-03] MEDS: Magnesium CITRATE* 300 ML BTL PEG TUBE SCH (18:10)
[2016-12-03] MEDS: Sodium Chloride TAB* 1 GM PEG TUBE SCH (18:11)
[2016-12-03] MEDS: CMCS: Melatonin (NF) 3 MG TAB PO SCH (20:24)
[2016-12-03] MEDS: Demeclocycline TAB* 150 MG SCH (20:24)
[2016-12-04] MEDS: NS 0.9% 1000 ML* 1,000 ML IV SCH ×3 (00:03→23:43)
[2016-12-04] MEDS: HYDROcodone/ACET. 7.5/325 LIQ* 15 ML UDC PEG TUBE PRN ×6 (01:57→22:20)
[2016-12-04] MEDS: Heparin VIAL(*) 5000 UNITS/ML VIAL (FIVE THOUSAND) SUBCUT SCH ×3 (06:21→21:39)
[2016-12-04] MEDS: Omeprazole CAP* 20 MG SCH (06:23)
[2016-12-04] MEDS: Levothyroxine TAB* 88 MCG TAB PEG TUBE SCH ×2 (07:00→07:08)
[2016-12-04] MEDS: Potassium Chloride LIQUID* 20 MEQ PACKET PEG TUBE SCH (07:24)
[2016-12-04] MEDS: Lisinopril TAB* 10 MG PEG TUBE SCH (07:25)
[2016-12-04] MEDS: Sodium Chloride TAB* 1 GM PEG TUBE SCH ×3 (07:25→18:17)
[2016-12-04] MEDS: Magnesium CITRATE* 300 ML BTL PEG TUBE SCH ×2 (07:25→18:19)
[2016-12-04] MEDS: Demeclocycline TAB* 150 MG SCH ×3 (09:12→19:57)
[2016-12-04 11:43] LABS: Hematocrit 23 % (42-52); Hemoglobin 7.8 g/dl (14.0-18.0); Mean Corpuscular HGB Conc 34 g/dl (31-36); Mean Corpuscular Hemoglobin 31 pg (27-31); Mean Corpuscular Volume 93 fL (80-94); Mean Platelet Volume 7 um3 (7.4-10.4); Red Cell Distribution Width 15 % (10.5-15); White Blood Count 2.9 10^3/ul (3.5-10.8)
[2016-12-04 11:47] LABS: Add Diff/Slide Review? Slide Review Added; Comments Flag Yes
[2016-12-04] MEDS: Cefepime(*) 2 GM in NS 0.9% 50 ML* 50 ML IVPB SCH ×2 (11:54→23:40)
[2016-12-04 11:59] LABS: BUN/Creatinine Ratio 26.8 (8-20); Calcium 7.9 mg/dL (8.6-10.3); EGFR African American 141.1 (>60); EGFR Non-African American 109.7 (>60); Potassium 3.8 mmol/L (3.5-5.0)
[2016-12-04 12:07] LABS: Immature Granulocytes 12 % (0-9); Metamyelocytes % 2 % (0-2); Myelocytes % 7 % (0-1); Neutrophil % 70 % (38-83)
[2016-12-04 12:08] LABS: Hypochromasia 1+
[2016-12-04] MEDS: BAKING SODA TOPICAL PRN (12:39)
[2016-12-04] MEDS: [UNRECOGNIZED DRUG - OTHER] TOPICAL PRN (12:39)
[2016-12-04] MEDS: CMCS: Melatonin (NF) 3 MG TAB PO SCH (21:39)
[2016-12-05] MEDS: [UNRECOGNIZED DRUG - OTHER] TOPICAL PRN ×2 (01:02→13:26)
[2016-12-05] MEDS: BAKING SODA TOPICAL PRN ×2 (01:02→13:26)
[2016-12-05] MEDS: HYDROcodone/ACET. 7.5/325 LIQ* 15 ML UDC PEG TUBE PRN ×5 (03:53→21:03)
[2016-12-05 05:31] LABS: Hematocrit 24 % (42-52); Mean Corpuscular HGB Conc 34 g/dl (31-36); Mean Corpuscular Hemoglobin 31 pg (27-31); Mean Corpuscular Volume 93 fL (80-94); Mean Platelet Volume 7 um3 (7.4-10.4); Red Blood Count 2.55 10^6/ul (4.0-5.4); Red Cell Distribution Width 15 % (10.5-15)
[2016-12-05 05:37] LABS: Comments Flag Yes
[2016-12-05 05:39] LABS: Add Diff/Slide Review? Slide Review Added
[2016-12-05 05:41] LABS: BUN/Creatinine Ratio 26.6 (8-20); Calcium 7.8 mg/dL (8.6-10.3); EGFR Non-African American 123.6 (>60); Potassium 3.3 mmol/L (3.5-5.0)
[2016-12-05] MEDS: Heparin VIAL(*) 5000 UNITS/ML VIAL (FIVE THOUSAND) SUBCUT SCH ×3 (05:57→21:30)
[2016-12-05] MEDS: Omeprazole CAP* 20 MG SCH (05:57)
[2016-12-05] MEDS: Levothyroxine TAB* 88 MCG TAB PEG TUBE SCH (05:57)
[2016-12-05] MEDS: Lisinopril TAB* 10 MG PEG TUBE SCH (07:28)
[2016-12-05] MEDS: Potassium Chloride LIQUID* 20 MEQ PACKET PEG TUBE SCH ×2 (07:28→21:03)
[2016-12-05] MEDS: Magnesium CITRATE* 300 ML BTL PEG TUBE SCH ×2 (07:29→18:32)
[2016-12-05] MEDS: Sodium Chloride TAB* 1 GM PEG TUBE SCH ×3 (07:31→18:32)
[2016-12-05] MEDS: Demeclocycline TAB* 150 MG SCH ×3 (09:00→20:07)
[2016-12-05] MEDS: Prochlorperazine TAB* 10 MG PEG TUBE PRN (09:52)
[2016-12-05] MEDS: NS 0.9% 1000 ML* 1,000 ML IV SCH (10:19)
[2016-12-05] MEDS: Cefepime(*) 2 GM in NS 0.9% 50 ML* 50 ML IVPB SCH (12:01)
[2016-12-05] MEDS: Polyethylene Glycol 3350* 17 GM PACKET PEG TUBE PRN (12:05)
[2016-12-05] MEDS ORDERED: Docusate CAP* 100 MG PO PRN (12:13)
[2016-12-05] MEDS: CMCS: Melatonin (NF) 3 MG TAB PO SCH (21:31)
[2016-12-05] MEDS: Ondansetron TAB* 4 MG PEG TUBE PRN (21:31)
[2016-12-06] MEDS: Cefepime(*) 2 GM in NS 0.9% 50 ML* 50 ML IVPB SCH ×3 (00:15→23:23)
[2016-12-06] MEDS: HYDROcodone/ACET. 7.5/325 LIQ* 15 ML UDC PEG TUBE PRN ×5 (01:08→20:02)
[2016-12-06] MEDS: Heparin VIAL(*) 5000 UNITS/ML VIAL (FIVE THOUSAND) SUBCUT SCH ×3 (05:37→21:39)
[2016-12-06] MEDS: Levothyroxine TAB* 88 MCG TAB PEG TUBE SCH (05:37)
[2016-12-06] MEDS: Omeprazole CAP* 20 MG SCH (05:38)
[2016-12-06] MEDS: Ondansetron TAB* 4 MG PEG TUBE PRN (05:45)
[2016-12-06 06:04] LABS: Hematocrit 26 % (42-52); Mean Corpuscular HGB Conc 34 g/dl (31-36); Mean Corpuscular Hemoglobin 31 pg (27-31); Mean Corpuscular Volume 92 fL (80-94); Mean Platelet Volume 7 um3 (7.4-10.4); Red Blood Count 2.85 10^6/ul (4.0-5.4); Red Cell Distribution Width 15 % (10.5-15); White Blood Count 2.4 10^3/ul (3.5-10.8)
[2016-12-06 06:05] LABS: Add Diff/Slide Review? Slide Review Added; Comments Flag Yes
[2016-12-06 06:14] LABS: EGFR African American 164.9 (>60); EGFR Non-African American 128.3 (>60); Potassium 3.2 mmol/L (3.5-5.0)
[2016-12-06 06:36] LABS: Eosinophils % 2 % (0-6); Immature Granulocytes 16 % (0-9); Metamyelocytes % 4 % (0-2); Myelocytes % 4 % (0-1); Neutrophil % 52 % (38-83)
[2016-12-06 06:37] LABS: RBC Morphology Normal (Normal)
[2016-12-06 06:38] LABS: Toxic Granulation 1+
[2016-12-06] MEDS: Sodium Chloride TAB* 1 GM PEG TUBE SCH ×3 (08:55→21:38)
[2016-12-06] MEDS: Lisinopril TAB* 10 MG PEG TUBE SCH (08:55)
--- NOTE | 2016-12-06 08:55 | PN ---
Progress Note - Progress Note SOAP: Subjective: []Feeling much better then yesterday. Less bloated and less SOB subsequently. Still doesn't feel great but more positive overall. No BM, but cont.'s to pass gas (eructation and flatulence), feels like he may go soon. No other complaints. Medications: Acetaminophen (Tylenol Adult Liq*) 650 mg PEG TUBE Q6H PRN PRN Reason: FEVER/PAIN Hydrocodone Bitart/Acetaminophen (Nortab 7.5/325 Liq*) 15 ml PEG TUBE Q4H PRN PRN Reason: PAIN Last Admin: 12/06/16 05:37 Dose: 15 ml Albuterol (Ventolin 2.5 Mg/3 Ml Neb.Yuli*) 2.5 mg INH Q2H PRN PRN Reason: SOB/WHEEZING Demeclocycline HCl (Declomycin Tab*) 300 mg .SEE ORDER 0900,1400,2000 [facility] Last Admin: 12/05/16 20:07 Dose: 300 mg Docusate Sodium (Colace Cap*) 100 mg PO BID PRN PRN Reason: CONSTIPATION Heparin Sodium (Porcine) (Heparin Vial(*)) 5,000 units SUBCUT Q8HR [facility] Last Admin: 12/06/16 05:37 Dose: 5,000 units Heparin Sodium (Porcine) (Heparin Flush Port (Ivad)) 5 ml FLUSH DAILY [facility] PRN Reason: Protocol Last Admin: 12/06/16 01:23 Dose: 5 ml Cefepime HCl 2 gm/ Sodium (Chloride) 50 mls @ 100 mls/hr IVPB Q12H [facility] Last Admin: 12/06/16 00:15 Dose: 100 mls/hr Potassium Chloride (Potassium Chloride 20 Meq/100 Ml Ivpremix*) 20 meq in 100 mls @ 50 mls/hr IV Q2H [facility] Stop: 12/06/16 12:59 Levothyroxine Sodium (Synthroid Tab*) 88 mcg PEG TUBE 0600 [facility] Last Admin: 12/06/16 05:37 Dose: 88 mcg Lidocaine (Xylocaine 2% Viscous*) 15 ml SWISH SWAL AC PRN PRN Reason: sore throat Lisinopril (Prinivil Tab*) 10 mg PEG TUBE 0730 [facility] Last Admin: 12/05/16 07:28 Dose: 10 mg Magnesium Citrate (Citrate Of Magnesia*) 15 ml PEG TUBE 0730,1830 [facility] Last Admin: 12/05/16 18:32 Dose: 15 ml Melatonin (Melatonin (Nf)) 3 mg PO BEDTIME [facility] PRN Reason: Protocol Last Admin: 12/05/16 21:31 Dose: 3 mg Baking Soda/Salt (Oral Rinse) 1 dose TOPICAL Q15M PRN PRN Reason: RADIATION INDUCED MOUTH PAIN Last Admin: 12/05/16 13:26 Dose: 1 dose Omeprazole (Prilosec Cap*) 20 mg .SEE ORDER 0600 [facility] Last Admin: 12/06/16 05:38 Dose: 20 mg Ondansetron HCl (Zofran Tab*) 4 mg PEG TUBE Q6H PRN PRN Reason: NAUSEA Last Admin: 12/06/16 05:45 Dose: 4 mg Polyethylene Glycol/Electrolytes (Miralax*) 17 gm PEG TUBE Q12HR PRN PRN Reason: constipation Last Admin: 12/05/16 12:05 Dose: 17 gm Potassium Chloride (Klor-Con Liquid*) 20 meq PEG TUBE BID [facility] Last Admin: 12/05/16 21:03 Dose: 20 meq Prochlorperazine (Compazine Tab*) 10 mg PEG TUBE Q6H PRN PRN Reason: NAUSEA Last Admin: 12/05/16 09:52 Dose: 10 mg Sodium Chloride (Sodium Chloride Tab*) 2 gm PEG TUBE 0730,1215,1830 [facility] Last Admin: 12/05/16 18:32 Dose: 2 gm Trazodone HCl (Desyrel Tab*) 50 mg PEG TUBE BEDTIME PRN PRN Reason: INSOMNIA Objective: [] Vital Signs Temp Pulse Resp BP Pulse Ox 98.4 F 73 18 126/65 99 12/06/16 07:17 12/06/16 07:17 12/06/16 07:37 12/06/16 07:17 12/06/16 07:17 A&Ox3, EOMI, PERRLA, HULL, neuro grossly non-focal Dry mucosa with ulcerations to soft palate, no evidence for thrush HRR, S1S2 LS with scattered wheezes, resp. even and non-labored +BS, abd. soft with mild tenderness to bilat. LQs +PP=bilat., +2 pitting edema to calves, no erythema or weeping Port LCW benign PEG tube benign Laboratory Results - last 24 hr 12/06/16 12/06/16 05:50 05:50 WBC 2.4 L RBC 2.85 L Hgb 9.0 L Hct 26 L MCV 92 MCH 31 MCHC 34 RDW 15 Plt Count 272 MPV 7 L Immature Gran % (Auto) 16 H Neut % (Auto) 71.1 Lymph % (Auto) 8.1 L [place] % (Auto) 19.3 H Eos % (Auto) 0.9 Baso % (Auto) 0.6 Absolute Neuts (auto) 1.7 Absolute Lymphs (auto) 0.2 L Absolute Monos (auto) 0.5 Absolute Eos (auto) 0 Absolute Basos (auto) 0 Absolute Nucleated RBC 0.01 Neutrophils % 52 Band Neutrophils % 8 Lymphocytes % 4 L Monocytes % 26 H Eosinophils % 2 Metamyelocytes % 4 H Myelocytes % 4 H Nucleated RBC % 0.3 Toxic Granulation 1+ Normal RBC Morphology Normal Sodium 130 L Potassium 3.2 L Chloride 98 L Carbon Dioxide 26 Anion Gap 6 BUN 13 Creatinine 0.62 L Est GFR ( Amer) 164.9 Est GFR (Non-Af Amer) 128.3 BUN/Creatinine Ratio 21.0 H Glucose 104 H Calcium 8.0 L Assessment: []71 yo M with locally advanced H&N cancer admitted with febrile neutropenia d/ t Pseudomonas spesis sensitive to Cefepime and Levaquin. His ANC has improved to 1.7 and he is feeling much better. Plan: []1. Pseudomonas Sepsis: sensitive current abx. and PO Levaquin, discussed with ID Dr. Bueno regarding recommendations for abx., for now cont. IV until recommended otherwise 2. Hyponatremia: chronic, stable to improved, no changes today 3. Hypokalemia: Add IV today, cont. PEG supplement, follow with labs 4. Constipation: no evidence for obstruction, cont. laxatives 5. Fluid retention: secondary to overload with IV fluids during admission, no more IV fluids, trial TEDs, enc. amb. 6.Squamous Cell HPV+ orophayrnx, T4bN2b: Due for C3 Cisplatin (100mg/m2) 12/10 however with sepsis will delay until 12/12 with MD MORALEZ prior, RT to complete Sat. 12/14 Disposition: goal d/c in next day or so
[2016-12-06] MEDS: Magnesium CITRATE* 300 ML BTL PEG TUBE SCH ×4 (08:56→21:38)
[2016-12-06 09:15] LABS: Magnesium 1.5 mg/dL (1.9-2.7)
[2016-12-06] MEDS: Potassium Chloride LIQUID* 20 MEQ PACKET PEG TUBE SCH ×2 (09:26→21:37)
[2016-12-06] MEDS: Demeclocycline TAB* 150 MG SCH ×3 (10:33→21:37)
[2016-12-06] MEDS: KCL 20 MEQ/100 ML IVPREMIX* 20 MEQ/100 ML BAG IV SCH ×2 (11:34→13:41)
--- NOTE | 2016-12-06 13:04 | CONS ---
CONSULTATION REPORT: DATE OF CONSULT: 12/06/16 REQUESTING PROVIDER: Nathalie Higginbotham NP. CONSULTING SERVICE: Infectious Disease. REASON FOR CONSULTATION: Pseudomonas bacteremia, neutropenia. IMPRESSION: 1. Neutropenic fever, neutropenia resolved. Has grown Pseudomonas in 2 of 4 blood culture bottles. Differential diagnosis for the source includes bowel translocation, he has a productive cough and a right middle lobe infiltrate, so pneumonia is a consideration. No particular specific abdominal symptoms to suggest an abdominal abscess or biliary tree disease. He does have a port, so the port could be seeded. 2. Oropharyngeal squamous cell cancer, receiving radiation and chemotherapy. RECOMMENDATIONS: Levaquin 500 mg IV every 24 hours for another 5 days to complete 10 days of IV antibiotics through the port. Recheck counts as an outpatient. If his fevers resolve and his neutropenia does not recur, then he would not necessarily need further antibiotics at this point. I discussed with him that the port may be infected and we need to monitor closely after stopping the IV antibiotics for return of his fever, chills, and malaise. HISTORY OF PRESENT ILLNESS: This is a 71-year-old male with oropharyngeal cancer, admitted with fever and malaise. He has been receiving radiation therapy and chemotherapy through his left chest port, which has not bothered him. On the , he began to get fever, chills, sweats, malaise, worsening of his subacute productive cough without dyspnea. He has had no dysuria or abdominal pain. Came to the hospital on the . His absolute neutrophil count was 700. He was febrile to 39 degrees. He was started on cefepime. Blood cultures were taken and chest x-ray was obtained that showed a right middle lobe infiltrate. Blood culture came back 2 of 4 bottles of Pseudomonas, which was sensitive to cefepime and Levaquin dosing. He is continued on cefepime. His fevers resolved. His absolute neutrophil count was up to 1700. He reports improvement in his productive cough, which he has had for a few weeks and then worsened significantly on the day or two before coming to the hospital and over the last couple of days, the cough is less severe, though still productive of clear to yellowish sputum without any blood. He has had no chest pain. He has had no dysuria or frequency. His abdominal PEG tube is working fine. He has no right upper quadrant pain. He had a couple of days of diffuse abdominal pain and bloating, decreased bowel movements. He is passing flatus. The bloating is decreased. He has no particular area that is more tender than another, just overall has some abdominal pain. Has not had a bowel movement today. PAST MEDICAL HISTORY: 1. Oropharyngeal cancer, chemotherapy and radiation. 2. Hypertension. 3. Hypothyroidism. 4. Hyponatremia. 5. Normocytic anemia. 6. Tobacco abuse. MEDICATIONS: 1. Tylenol. 2. Albuterol. 3. Demeclocycline. 4. Docusate. 5. Heparin subcutaneous injection. 6. Levothyroxine. 7. Lisinopril. 8. Cefepime 2 g every 12 hours. 9. Melatonin. 10. Omeprazole. 11. Sodium tablets. 12. Prochlorperazine. ALLERGIES: No known drug allergies. FAMILY HISTORY: Father with esophageal cancer. SOCIAL HISTORY: Past smoker. Past alcohol. No IV drug use. Lives with his . REVIEW OF SYSTEMS: All negative except as noted above, a 12-point review of systems. PHYSICAL EXAMINATION: Vital Signs: Temperature 37, heart rate 70, respiratory rate 16, blood pressure 120/60, O2 sat 99% on room air. In general, he is awake, not in distress. Neurologic: He is oriented x3, follows all commands, answers all questions. HEENT: There is no conjunctival hemorrhage. Oropharynx: Atrophic including the tongue. Mucosa dry. There is no thrush. Neck: Mildly discolored. There is no crepitus. There is no tenderness to palpation. Lymph Nodes: There is no cervical, supraclavicular, inguinal, axillary, or epitrochlear lymphadenopathy. Heart: Regular rate and rhythm without murmurs, rubs, or gallops. Lungs are clear to auscultation bilaterally. Abdomen: Soft. Mildly distended. There is no tenderness to palpation. There is no right upper quadrant tenderness. There is no Machado's sign. Skin: There is no rash or splinter hemorrhages. Musculoskeletal: There is no spine tenderness to palpation or joint synovitis. LABORATORY DATA: White blood cell count 2.4, hemoglobin 9, platelets 272, creatinine is 0.6. Please see impressions and recommendations outlined above, which I have discussed with Nathalie Higginbotham NP. Thanks for asking me to see Mr. Rajan in consultation. [id number]/[facility] #: [id number] [place]TD[place]ah
[2016-12-06] MEDS ORDERED: NS 0.9% 50 ML* 100 ML ONE (13:24)
[2016-12-06] MEDS: Polyethylene Glycol 3350* 17 GM PACKET PEG TUBE PRN (17:33)
[2016-12-06] MEDS: Prochlorperazine TAB* 10 MG PEG TUBE PRN (17:39)
[2016-12-06] MEDS: CMCS: Melatonin (NF) 3 MG TAB PO SCH (22:44)
[2016-12-07] MEDS: HYDROcodone/ACET. 7.5/325 LIQ* 15 ML UDC PEG TUBE PRN ×5 (03:11→20:43)
[2016-12-07] MEDS: Omeprazole CAP* 20 MG SCH (06:01)
[2016-12-07] MEDS: Levothyroxine TAB* 88 MCG TAB PEG TUBE SCH (06:01)
[2016-12-07] MEDS: Heparin VIAL(*) 5000 UNITS/ML VIAL (FIVE THOUSAND) SUBCUT SCH ×3 (06:01→21:55)
[2016-12-07] MEDS: LORazepam TAB(*) 0.5 MG PO SCH ×2 (06:06→09:47)
[2016-12-07 06:29] LABS: Hematocrit 25 % (42-52); Hemoglobin 8.5 g/dl (14.0-18.0); Mean Corpuscular HGB Conc 34 g/dl (31-36); Mean Corpuscular Hemoglobin 32 pg (27-31); Mean Corpuscular Volume 93 fL (80-94); Mean Platelet Volume 7 um3 (7.4-10.4); Red Blood Count 2.66 10^6/ul (4.0-5.4); Red Cell Distribution Width 15 % (10.5-15); White Blood Count 3.6 10^3/ul (3.5-10.8)
[2016-12-07 06:36] LABS: Albumin 2.1 g/dL (3.2-5.2); Calcium 7.8 mg/dL (8.6-10.3); EGFR African American 174.7 (>60); EGFR Non-African American 135.8 (>60); Magnesium 1.6 mg/dL (1.9-2.7); Potassium 3.4 mmol/L (3.5-5.0); Total Bilirubin 0.3 mg/dL (0.2-1.0); Total Protein 5.1 g/dL (6.4-8.9)
[2016-12-07 06:39] LABS: Comments Flag Yes
[2016-12-07] MEDS: Sodium Chloride TAB* 1 GM PEG TUBE SCH ×3 (07:44→16:38)
[2016-12-07] MEDS: Lisinopril TAB* 10 MG PEG TUBE SCH (07:44)
[2016-12-07] MEDS: Potassium Chloride LIQUID* 20 MEQ PACKET PEG TUBE SCH ×2 (09:46→20:37)
[2016-12-07] MEDS: Demeclocycline TAB* 150 MG SCH ×3 (09:46→20:29)
[2016-12-07] MEDS: Levofloxacin 500 MG IVPREMIX(* 500 MG/100 ML BAG IVPB SCH (09:46)
[2016-12-07] MEDS: Magnesium CITRATE* 300 ML BTL PEG TUBE SCH ×4 (09:46→20:29)
[2016-12-07] MEDS: Ondansetron TAB* 4 MG PEG TUBE PRN ×2 (12:29→20:43)
--- NOTE | 2016-12-07 13:00 | DS ---
DISCHARGE SUMMARY: DATE OF ADMISSION: 12/02/16 DATE OF DISCHARGE: 12/08/16 DISCHARGE DIAGNOSES: 1. Pseudomonas sepsis: Improving on antibiotics. 2. Febrile neutropenia: Resolved. 3. Oropharyngeal cancer: On combined therapy, status post cycle 2 cisplatin with plan for cycle 3 next week if stable. 4. Hyponatremia: Chronic, managed with demeclocycline and salt tabs. 5. Hypokalemia and hypomagnesemia: Secondary to cisplatin treatment, improved with supplements. 6. Hypertension: Stable on lisinopril. DISCHARGE MEDICATIONS: 1. Demeclocycline 300 mg p.o. t.i.d. 2. Docusate sodium 100 mg p.o. b.i.d. p.r.n. constipation. 3. Heparin (100 units/mL) 5 mL daily p.r.n. port use, VNS to assist. 4. Levaquin 500 mg IV daily, approximately 0900 x4 days, starting 12/08/16 through 12/11/16, VNS to assist. 5. Magnesium citrate 15 mL per PEG 4 times a day. 6. Potassium chloride liquid 20 mEq via PEG b.i.d. 7. Lisinopril 10 mg via PEG q.a.m. 8. Prochlorperazine 10 mg via PEG q.6 hours p.r.n. nausea. 9. Albuterol 2.5 mg/3 mL inhaled q.2 hours p.r.n. wheezing. 10. Viscus lidocaine 2% 15 mL swish and swallow prior to meals p.r.n. mouth pain. 11. Ondansetron oral solution 4 mg via PEG q.6 hours p.r.n. nausea. 12. MiraLAX 17 g via PEG q.12 hours p.r.n. constipation. 13. Omeprazole 20 mg via PEG q.a.m. 14. Melatonin 3 mg via PEG q.h.s. 15. Acetaminophen 650 mg via PEG q.6 hours p.r.n. fever/pain, notify staff of fever prior to use. 16. Levothyroxine 88 mcg via PEG q.a.m. at 0600. 17. Sodium chloride 2 g p.o./via PEG t.i.d. 18. Trazodone 50 mg via PEG q.h.s. p.r.n. insomnia. 19. Hydrocodone/acetaminophen 7.5/325 liquid, 15 mL p.o. or via PEG q.4 hours p.r.n. pain, MDD 90 mL. HOSPITAL COURSE: Please see admission note for full H and P. However, briefly , Mr. Rajan is well known to our service due to his unfortunate diagnosis of locally advanced oropharyngeal cancer, currently on concurrent therapy with cisplatin and RT. His course has been complicated by chronic hyponatremia, progressive with cisplatin treatment. He has been stable with demeclocycline and salt tabs. Due to his oropharyngeal cancer, he has been using PEG tube feedings for nutrition with difficulty swallowing secondary to treatment, this has been modified in order to assist with absorption of supplements. On the morning of 12/02/16, he woke up feeling unwell at which time his checked his temperature, it was normal. Subsequently he continued to feel unwell using pain medications and in the evening, started shaking uncontrollably at which time the temperature was 101.6. He was instructed to go to the ER where he was worked up for sepsis and admitted with neutropenic fever. On admission, Mr. Rajan was started on cefepime 2 g IV q.12 hours. Blood cultures 2 of 4 grew Pseudomonas aeruginosa. Pseudomonas was sensitive to cefepime and Mr. Rajan continued to improve over the next 24 to 48 hours. During his stay, he did receive 2 units of packed red blood cells for anemia secondary to chemotherapy. His neutrophils improved from 700 on admission to 2.2 by 12/04/16. On , Mr. Rajan did experience some bloating and discomfort with associated shortness of breath when lying down, felt to be related to fluid volume overload , his fluids were stopped and this improved by 12/06/16. Mr. Rajan continues to experience mucositis with significant mucus production and occasional bleeding due to his radiation. His disease was locally advanced with extension to the soft palate causing ulceration and expected bleeding during treatment. Today, he is feeling reasonably well, markedly improved from admission and overall stable for discharge. Dr. Bueno of Infectious Disease was consulted yesterday on 12/06/16, and agreed with the plan stating need for a total of 10 days IV antibiotics due to question of infection of the port. This is difficult to determine due to current sepsis and no evidence of infection surrounding the port. Today, he has been switched to IV Levaquin per Dr. Bueno's recommendation and will receive this for another 4 days at home starting tomorrow. In order to catch up on his radiation doses, Dr. Conrad has been providing Mr. Rajan with twice daily radiation intermittently, therefore, Mr. Rajan will be discharged to home this afternoon following his second dose of radiation. He will rest over the weekend and is aware of the plan for IV antibiotics, which his will administer with assistance from the visiting nurse services they previously have set up. Mr. Rajan will also return to our office on Saturday following his radiation to reassess labs and receive possible hydration. He will then see Dr. Nuñez on 12/12/16, in the a.m. prior to potential treatment with cycle 3 of cisplatin. His treatment is curative intent; however, with admission and sepsis we will delay treatment until after IV antibiotics and reassess the patient's ability to tolerate. To note, Mr. Rajan did have a fall in the hospital last night related to his PEG tube feeding becoming unhooked and dripping on the floor where he attempted to fix this and slipped in the wet puddle. He did not hit his head and hit his back slightly. There is a small bruise, though he shows no further sequelae and is otherwise stable. Plan of care was reviewed at length with Mr. Rajan who states understanding, he admits to some anxiety regarding going home due to not feeling 100%, however, states this is likely related to treatment and not related to his acute admission. On assessment, I am in agreement with this and have encouraged him that he will be safest at home and we will follow up with him closely as an outpatient. TIME SPENT: Greater than 40 minutes was spent with greater than 50% face-to- face counseling. SIGRID DEL CID NP CC: Jan Conrad MD; Nando Bueno MD * [id number]/[facility] #: [id number] MTDD
[2016-12-07] MEDS: Prochlorperazine TAB* 10 MG PEG TUBE PRN (16:47)
[2016-12-07] MEDS: CMCS: Melatonin (NF) 3 MG TAB PO SCH (20:29)
[2016-12-08] MEDS: HYDROcodone/ACET. 7.5/325 LIQ* 15 ML UDC PEG TUBE PRN ×3 (02:12→11:07)
[2016-12-08] MEDS: Levothyroxine TAB* 88 MCG TAB PEG TUBE SCH (06:16)
[2016-12-08] MEDS: Heparin VIAL(*) 5000 UNITS/ML VIAL (FIVE THOUSAND) SUBCUT SCH (06:16)
[2016-12-08] MEDS: Omeprazole CAP* 20 MG SCH (06:18)
[2016-12-08] MEDS: Ondansetron TAB* 4 MG PEG TUBE PRN (06:28)
[2016-12-08] MEDS: Potassium Chloride LIQUID* 20 MEQ PACKET PEG TUBE SCH (08:38)
[2016-12-08] MEDS: Sodium Chloride TAB* 1 GM PEG TUBE SCH ×2 (08:38→13:08)
[2016-12-08] MEDS: LORazepam TAB(*) 0.5 MG PO SCH (08:38)
[2016-12-08] MEDS: Lisinopril TAB* 10 MG PEG TUBE SCH (08:38)
[2016-12-08] MEDS: Magnesium CITRATE* 300 ML BTL PEG TUBE SCH ×2 (08:51→13:13)
[2016-12-08] MEDS: Levofloxacin 500 MG IVPREMIX(* 500 MG/100 ML BAG IVPB SCH (08:51)
[2016-12-08] MEDS: Demeclocycline TAB* 150 MG SCH (09:04)
--- NOTE | 2016-12-08 09:27 | PN ---
Progress Note - Progress Note SOAP: Subjective: []He is very fatigued after XRT x 2 yesterday. He is tolerating tube feeds but has had nausea, taking nausea medication and helps. No fevers. Mouth pain 4-5/ 10 and mouth wash helps. Not sure if he can go home today. Acetaminophen (Tylenol Adult Liq*) 650 mg PEG TUBE Q6H PRN PRN Reason: FEVER/PAIN Hydrocodone Bitart/Acetaminophen (Nortab 7.5/325 Liq*) 15 ml PEG TUBE Q4H PRN PRN Reason: PAIN Last Admin: 12/08/16 06:28 Dose: 15 ml Albuterol (Ventolin 2.5 Mg/3 Ml Neb.Yuli*) 2.5 mg INH Q2H PRN PRN Reason: SOB/WHEEZING Demeclocycline HCl (Declomycin Tab*) 300 mg .SEE ORDER 0900,1400,2000 [facility] Last Admin: 12/08/16 09:04 Dose: 300 mg Docusate Sodium (Colace Cap*) 100 mg PO BID PRN PRN Reason: CONSTIPATION Heparin Sodium (Porcine) (Heparin Vial(*)) 5,000 units SUBCUT Q8HR [facility] Last Admin: 12/08/16 06:16 Dose: 5,000 units Heparin Sodium (Porcine) (Heparin Flush Port (Ivad)) 5 ml FLUSH DAILY [facility] PRN Reason: Protocol Last Admin: 12/07/16 14:40 Dose: 5 ml Levofloxacin/Dextrose (Levaquin 500 Mg Ivpremix(*)) 500 mg in 100 mls @ 100 mls /hr IVPB Q24H [facility] Stop: 12/11/16 09:59 Last Admin: 12/08/16 08:51 Dose: 100 mls/hr Levothyroxine Sodium (Synthroid Tab*) 88 mcg PEG TUBE 0600 [facility] Last Admin: 12/08/16 06:16 Dose: 88 mcg Lidocaine (Xylocaine 2% Viscous*) 15 ml SWISH SWAL AC PRN PRN Reason: sore throat Lisinopril (Prinivil Tab*) 10 mg PEG TUBE 0730 [facility] Last Admin: 12/08/16 08:38 Dose: 10 mg Lorazepam (Ativan Tab(*)) 0.5 mg PO DAILY [facility] Last Admin: 12/08/16 08:38 Dose: 0.5 mg Magnesium Citrate (Citrate Of Magnesia*) 15 ml PEG TUBE QID [facility] Last Admin: 12/08/16 08:51 Dose: 15 ml Melatonin (Melatonin (Nf)) 3 mg PO BEDTIME [facility] PRN Reason: Protocol Last Admin: 12/07/16 20:29 Dose: 3 mg Baking Soda/Salt (Oral Rinse) 1 dose TOPICAL Q15M PRN PRN Reason: RADIATION INDUCED MOUTH PAIN Last Admin: 12/05/16 13:26 Dose: 1 dose Omeprazole (Prilosec Cap*) 20 mg .SEE ORDER 0600 [facility] Last Admin: 12/08/16 06:18 Dose: 20 mg Ondansetron HCl (Zofran Tab*) 4 mg PEG TUBE Q6H PRN PRN Reason: NAUSEA Last Admin: 12/08/16 06:28 Dose: 4 mg Polyethylene Glycol/Electrolytes (Miralax*) 17 gm PEG TUBE Q12HR PRN PRN Reason: constipation Last Admin: 12/06/16 17:33 Dose: 17 gm Potassium Chloride (Klor-Con Liquid*) 20 meq PEG TUBE BID [facility] Last Admin: 12/08/16 08:38 Dose: 20 meq Prochlorperazine (Compazine Tab*) 10 mg PEG TUBE Q6H PRN PRN Reason: NAUSEA Last Admin: 12/07/16 16:47 Dose: 10 mg Sodium Chloride (Sodium Chloride Tab*) 2 gm PEG TUBE 0730,1215,1830 [facility] Last Admin: 12/08/16 08:38 Dose: 2 gm Trazodone HCl (Desyrel Tab*) 50 mg PEG TUBE BEDTIME PRN PRN Reason: INSOMNIA Objective: [] Vital Signs Temp Pulse Resp BP Pulse Ox 97.9 F 65 16 141/53 97 12/08/16 03:47 12/08/16 03:47 12/08/16 08:38 12/08/16 03:47 12/08/16 03:47 HEENT - mass has decreased, there is ulceration, no thrush. CTA RRR S1S2 PEG tube is fine, good BS, NT ND EXT - no edema, good pulses. Assessment: []71 yo M with locally advanced H&N cancer admitted with febrile neutropenia d/ t Pseudomonas spesis sensitive to Cefepime and Levaquin. Now with resolution of infection and recovery of WBC, currently treated with IV Levoquin daily. Plan: []1. Pseudomonas Sepsis: Planning IV ABX at home and has infusion services established. 2. Hyponatremia: chronic, stable to improved, Na 131 3. Hypokalemia: Secondary to Cisplatin, will continue to follow. 4. Constipation, moving bowls, will continue laxatives at home. 5.Squamous Cell HPV+ orophayrnx, T4bN2b: Due for C3 Cisplatin (100mg/m2) 12/10 however with sepsis will delay until 12/12. May delay later in the week if needed. 6. Disp. Home today is plan, if he needs to stay overnight that is acceptable. Reassured him that he is medically safe to go home.
[2016-12-08 11:49] VITALS: BP 150/80
== END 2016-12-08 13:35 | disposition home or self-care (01) | DRG 871 ==
LOC: ED 19:08 → SSU 23:08
PROVIDERS: ADMIT Internal Medicine; ATTEND Internal Medicine Hematology & Oncology
PROC: 30233N1 Transfusion of Nonautologous Red Blood Cells into Peripheral Vein, Percutaneous Approach (ICD-10-PCS; principal; 2016-12-03)
PROC: D90 Radiation Therapy, Ear, Nose, Mouth and Throat, Beam Radiation (ICD-10-PCS; 2016-12-04)
DX: A41.52 Sepsis due to Pseudomonas (principal); D61.1 Drug-induced aplastic anemia; J18.9 Pneumonia, unspecified organism; R50.81 Fever presenting with conditions classified elsewhere; C10.9 Malignant neoplasm of oropharynx, unspecified; E87.1 Hypo-osmolality and hyponatremia; E87.6 Hypokalemia; E83.42 Hypomagnesemia; I10 Essential (primary) hypertension; W18.39XA Other fall on same level, initial encounter; Y92.230 Patient room in hospital as the place of occurrence of the external cause; F17.210 Nicotine dependence, cigarettes, uncomplicated; K21.9 Gastro-esophageal reflux disease without esophagitis; G47.00 Insomnia, unspecified; Z93.1 Gastrostomy status; Z80.0 Family history of malignant neoplasm of digestive organs; Z79.1 Long term (current) use of non-steroidal anti-inflammatories (NSAID); Z79.899 Other long term (current) drug therapy; T45.1X5A Adverse effect of antineoplastic and immunosuppressive drugs, initial encounter; Y92.9 Unspecified place or not applicable; X58.XXXA Exposure to other specified factors, initial encounter
CPT/HCPCS: 36415; 36591; 71010; 77336; 77386; 80048; 80053; 81003; 82272; 83605; 83690; 83735; 85025; 85027; 85610; 85730; 86140; 86850; 86900; 86901; 86922; 87040; 87070; 87077; 87186; 87205; 87899; 96361; 96365; 96366; 99213; 99232; 99233; 99239; A9270-GY; G0463; J0692; J1170; J1642; J1644; J1956; J2270; J2405; J3475; J3480; P9040; Q0164

== ENCOUNTER 2017-03-05 21:43 | Inpatient (IN) | payer MEDICARE, BC ==
[2017-03-06] MEDS ORDERED: NS 0.9% 1000 ML* 1,000 ML IV ONE ×2 (01:51→03:57)
[2017-03-06] MEDS ORDERED: Morphine INJ* 4 MG/ML 1 ML SYRINGE IV ONE (02:32)
[2017-03-06] MEDS ORDERED: Ondansetron INJ* 2 MG/ML VIAL IV ONE (02:32)
[2017-03-06 02:35] LABS: Hematocrit 33 % (42-52); Mean Corpuscular HGB Conc 34 g/dl (31-36); Mean Corpuscular Hemoglobin 34 pg (27-31); Mean Corpuscular Volume 100 fL (80-94); Mean Platelet Volume 9 um3 (7.4-10.4); Red Blood Count 3.28 10^6/ul (4.0-5.4); Red Cell Distribution Width 14 % (10.5-15); White Blood Count 10.8 10^3/ul (3.5-10.8)
[2017-03-06 02:52] LABS: Albumin 3.1 g/dL (3.2-5.2); BUN/Creatinine Ratio 47.9 (8-20); C Reactive Protein 5.12 mg/L (< 5.00); EGFR African American 136.6 (>60); EGFR Non-African American 106.2 (>60); Globulin 3.5 g/dL (2-4); Potassium 3.8 mmol/L (3.5-5.0); Total Bilirubin 0.5 mg/dL (0.2-1.0); Total Protein 6.6 g/dL (6.4-8.9)
[2017-03-06] MEDS ORDERED: Metoclopramide IV* 5 MG/ML 2 ML VIAL IV SLOW PU ONE ×2 (03:52→08:49)
[2017-03-06] MEDS ORDERED: HYDROmorphone* 1 MG/ML 1 ML SYR IV ONE (03:52)
--- NOTE | 2017-03-06 06:55 | ED ---
ivone Spence Timothy, scribed for Lukas Clark MD on 03/06/17 at 0137 . Abdominal Pain/Male - HPI Summary HPI Summary: Ross Rajan is a 71 yo male presenting to [facility] with 8/10 abd cramping without N/ V/D since 03/04/17 evening. he states the pain is variable, and ranges from a 6/ 10 to 8/10. He states the pain is worse when he takes deep breaths. Pt had a BM at noon today which was normal. He denies any urinary Sx or testicular pain, and does not feel dehydrated. Pt states he has had a lot of gas recently, but this has resolved in the past day. Pt has a feeding tube, and has not experienced any difficulty with it. Pt is undergoing radiation treatment, most recently 12/2016, and chemotherapy, most recently 11/2016. His MHx includes hypothyroidism, HTN, throat CA, tonsil CA, EGD, feeding tube, appendectonmy, RA , tobacco use, chemotherapy, radiation. - History of Current Complaint Chief Complaint: EDAbdPain Stated Complaint: ABD PAIN Time Seen by Provider: 03/06/17 01:37 Hx Obtained From: Patient Onset/Duration: Sudden Onset, Lasting Days, Still Present Timing: Constant Severity Initially: Moderate Severity Currently: Moderate Pain Intensity: 8 Pain Scale Used: 0-10 Numeric Location: Discrete At: RLQ Radiates: No Aggravating Factor(s): Deep Breaths Associated Signs And Symptoms: Negative: Constipation, Urinary Symptoms, Nausea , Vomiting, Diarrhea - Allergies/Home Medications Allergies/Adverse Reactions: Allergies Allergy/AdvReac Type Severity Reaction Status Date / Time No Known Allergies Allergy Verified 12/02/16 19:25 PMH/Surg Hx/FS Hx/Imm Hx Endocrine/Hematology History: Reports: Hx Thyroid Disease - HYPOTHYROIDISM Cardiovascular History: Reports: Hx Hypertension Respiratory History: Reports: Other Respiratory Problems/Disorders - TUMOR IN THROAT, TROUBLE DISCHARGING MUCUS Musculoskeletal History: Reports: Hx Arthritis - RHEUMATOID Sensory History: Denies: Hx Contacts or Glasses, Hx Hearing Aid Opthamlomology History: Denies: Hx Contacts or Glasses - Cancer History Cancer Type, 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 10/22/2016 EGD WITH PEG TUBE PLACEMENT Hx Anesthesia Reactions: No - LOCAL Infectious Disease History: No Infectious Disease History: Denies: Traveled Outside the [place] in Last 30 Days - Family History Known Family History: Positive: Cardiac Disease - 3x CABG, Hypertension Negative: Diabetes, Other - No FHx of malignant hyperthermia or anesthesia reaction. - Social History Alcohol Use: None Hx Substance Use: No Substance Use Type: Reports: None Hx Tobacco Use: Yes Smoking Status (MU): Former Smoker Type: Cigarettes Amount Used/How Often: 6-8 CIGARETTES PER DAY FOR ABOUT 40 YEARS Have You Smoked in the Last Year: Yes Review of Systems Constitutional: Negative Eyes: Negative ENT: Negative Cardiovascular: Negative Respiratory: Negative Positive: Abdominal Pain. Negative: Vomiting, Diarrhea, Nausea Genitourinary: Negative Positive: no symptoms reported. Negative: dysuria Musculoskeletal: Negative Skin: Negative Neurological: Negative Psychological: Normal All Other Systems Reviewed And Are Negative: Yes Physical Exam Triage Information Reviewed: Yes Vital Signs On Initial Exam: Initial Vitals Temp Pulse Resp BP Pulse Ox 98.1 F 71 18 129/66 100 03/05/17 22:03 03/05/17 22:03 03/05/17 22:03 03/05/17 22:03 03/05/17 22:03 Vital Signs Reviewed: Yes Appearance: Positive: Well-Appearing, No Pain Distress, Well-Nourished Skin: Positive: Warm, Skin Color Reflects Adequate Perfusion, Dry Head/Face: Positive: Normal Head/Face Inspection Eyes: Positive: EOMI, HEATHER ENT: Positive: Normal ENT inspection Neck: Positive: Supple, Nontender Respiratory/Lung Sounds: Positive: Clear to Auscultation, Breath Sounds Present Cardiovascular: Positive: RRR Abdomen Description: Positive: Soft Bowel Sounds: Positive: Present Musculoskeletal: Positive: Normal, Strength/ROM Intact Neurological: Positive: Normal, Sensory/Motor Intact, Alert, Oriented to Person Place, Time Psychiatric: Positive: Affect/Mood Appropriate Diagnostics - Vital Signs Vital Signs Temp Pulse Resp BP Pulse Ox 03/05/17 23:55 97.1 F 68 20 139/69 98 03/05/17 22:03 98.1 F 71 18 129/66 100 - Laboratory Lab Results: Lab Results 03/06/17 03/06/17 03/06/17 Range/Units 02:25 02:25 02:25 WBC 10.8 (3.5-10.8) 10^3/ul RBC 3.28 L (4.0-5.4) 10^6/ul Hgb 11.0 L (14.0-18.0) g/dl Hct 33 L (42-52) % MCV 100 H (80-94) fL MCH 34 H (27-31) pg MCHC 34 (31-36) g/dl RDW 14 (10.5-15) % Plt Count 225 (150-450) 10^3/ul MPV 9 (7.4-10.4) um3 Neut % (Auto) 91.2 H (38-83) % Lymph % (Auto) 2.5 L (25-47) % [place] % (Auto) 5.8 (1-9) % Eos % (Auto) 0.3 (0-6) % Baso % (Auto) 0.2 (0-2) % Absolute Neuts (auto) 9.8 H (1.5-7.7) 10^3/ul Absolute Lymphs (auto) 0.3 L (1.0-4.8) 10^3/ul Absolute Monos (auto) 0.6 (0-0.8) 10^3/ul Absolute Eos (auto) 0 (0-0.6) 10^3/ul Absolute Basos (auto) 0 (0-0.2) 10^3/ul Absolute Nucleated RBC 0 10^3/ul Nucleated RBC % 0 INR (Anticoag Therapy) 0.90 (0.89-1.11) APTT 38.9 H (26.0-36.3) seconds Sodium 129 L (133-145) mmol/L Potassium 3.8 (3.5-5.0) mmol/L Chloride 97 L (101-111) mmol/L Carbon Dioxide 26 (22-32) mmol/L Anion Gap 6 (2-11) mmol/L BUN 35 H (6-24) mg/dL Creatinine 0.73 (0.67-1.17) mg/dL Est GFR ( Amer) 136.6 (>60) Est GFR (Non-Af Amer) 106.2 (>60) BUN/Creatinine Ratio 47.9 H (8-20) Glucose 106 H (70-100) mg/dL Lactic Acid (0.5-2.0) mmol/L Calcium 9.0 (8.6-10.3) mg/dL Total Bilirubin 0.50 (0.2-1.0) mg/dL AST 19 (13-39) U/L ALT 20 (7-52) U/L Alkaline Phosphatase 85 (34-104) U/L C-Reactive Protein 5.12 H (< 5.00) mg/L Total Protein 6.6 (6.4-8.9) g/dL Albumin 3.1 L (3.2-5.2) g/dL Globulin 3.5 (2-4) g/dL Albumin/Globulin Ratio 0.9 L (1-3) Lipase 27 (11.0-82.0) U/L 03/06/17 Range/Units 02:25 WBC (3.5-10.8) 10^3/ul RBC (4.0-5.4) 10^6/ul Hgb (14.0-18.0) g/dl Hct (42-52) % MCV (80-94) fL MCH (27-31) pg MCHC (31-36) g/dl RDW (10.5-15) % Plt Count (150-450) 10^3/ul MPV (7.4-10.4) um3 Neut % (Auto) (38-83) % Lymph % (Auto) (25-47) % [place] % (Auto) (1-9) % Eos % (Auto) (0-6) % Baso % (Auto) (0-2) % Absolute Neuts (auto) (1.5-7.7) 10^3/ul Absolute Lymphs (auto) (1.0-4.8) 10^3/ul Absolute Monos (auto) (0-0.8) 10^3/ul Absolute Eos (auto) (0-0.6) 10^3/ul Absolute Basos (auto) (0-0.2) 10^3/ul Absolute Nucleated RBC 10^3/ul Nucleated RBC % INR (Anticoag Therapy) (0.89-1.11) APTT (26.0-36.3) seconds Sodium (133-145) mmol/L Potassium (3.5-5.0) mmol/L Chloride (101-111) mmol/L Carbon Dioxide (22-32) mmol/L Anion Gap (2-11) mmol/L BUN (6-24) mg/dL Creatinine (0.67-1.17) mg/dL Est GFR ( Amer) (>60) Est GFR (Non-Af Amer) (>60) BUN/Creatinine Ratio (8-20) Glucose (70-100) mg/dL Lactic Acid 0.6 (0.5-2.0) mmol/L Calcium (8.6-10.3) mg/dL Total Bilirubin (0.2-1.0) mg/dL AST (13-39) U/L ALT (7-52) U/L Alkaline Phosphatase (34-104) U/L C-Reactive Protein (< 5.00) mg/L Total Protein (6.4-8.9) g/dL Albumin (3.2-5.2) g/dL Globulin (2-4) g/dL Albumin/Globulin Ratio (1-3) Lipase (11.0-82.0) U/L Result Diagrams: 03/06/17 02:25 03/06/17 02:25 Lab Statement: Any lab studies that have been ordered have been reviewed, and results considered in the medical decision making process. - CT A/P CT Interpretation: Positive (See Comments) - Impression: Suspected gastroparesis. Small right inguinal hernia containing small bowel and/or small amount of fluid, without bowel obstruction or inflammation. Mild emphysema and very questionable right lower lobe pneumonia, more likely representing atelactasis. Probable complex left renal cyst may be followed up with MRI or enhanced CT. Cachexia. CT Interpretation Completed By: Radiologist - Imaging Senior Design Engineer Re-Evaluation - Re-Evaluation First Eval Re-Evaluation Time: 03:46 Change: Worse Comment: Discussed lab and imaging study results with Pt. Pt notes his pain is increased. Abdominal Pain Fem Course/Dx - Course Assessment/Plan: Ross Rajan is a 71 yo male presenting to [facility] with 8/10 abd cramping without N/V/D since 03/04/17 evening. His medication list is reviewed this visit. In the ED course he received IV fluids, zofran for nausea control, and morphine for pain management. His CT A/P shows suspected gastroparesis. Small right inguinal hernia containing small bowel and/or small amount of fluid , without bowel obstruction or inflammation. Mild emphysema and very questionable right lower lobe pneumonia, more likely representing atelactasis. Probable complex left renal cyst may be followed up with MRI or enhanced CT. Cachexia. Following his CT A/P results he was administered reglan and dilaudid. After clinical examination and review of his lab and imaging studies, Pt did not feel able to pass a PEG tube challenge, and will be signed out to Dr. Pickard pending his ability to tolerate PEG tube challenge. NO CRITICAL CARE TIME. IMPROVED AFTER IV DILAUDID AND REGLAN. DISCUSSED RESULTS WITH PATIENT/ . PEG TUBE CHALLENGE PENDING AT SHIFT CHANGE. - Diagnoses Provider Diagnoses: Abdominal pain, Gastroparesis Discharge - Discharge Plan Condition: Stable Disposition: OTHER Discharge Disposition Comment: signed out to Dr. Pickard pending PEG tube challenge Referrals: Claudia George MD [Primary Care Provider] - The documentation as recorded by the ivone gonzales Timothy accurately reflects the service I personally performed and the decisions made by me, Lukas Clark MD.
[2017-03-06 07:50] LABS: Urine Bilirubin Negative (Negative); Urine Glucose Negative (Negative); Urine Nitrite Negative (Negative)
--- NOTE | 2017-03-06 08:30 | RAD ---
INDICATION: Abdominal pain and bloating. COMPARISON: Comparison is made with a prior PET/CT study from October 03, 2016. TECHNIQUE: A CT scan of the abdomen and pelvis was performed without intravenous or oral contrast. Contiguous axial sections were obtained from the lung bases through the symphysis pubis. Images were reconstructed in the coronal and sagittal planes. FINDINGS: There is a small infiltrate present dependently in the right lower lobe. No pleural effusion is seen. The liver and spleen are within normal limits in size without significant focal abnormality on this noncontrast study. No calcified gallstones are seen. The pancreas appears to be within normal limits in size. The adrenal glands appears slightly hyperplastic without discrete nodule. No renal calculi or hydronephrosis is seen. There is a cyst arising from the posterior aspect of the left kidney measuring 2.4 cm in size. In addition there is a complex lesion arising from the mid posterior lateral aspect of the left kidney with peripheral calcification measuring soft tissue density and 2.3 cm in size. This is seen on the prior PET/CT study although appears to have increased in size and measures 1.5 cm on that study. There is also a hyperdense likely hemorrhagic cyst in the lower pole of the left kidney measuring 1.2 cm in size. The abdominal aorta is tortuous with moderate calcific plaque. No aneurysm is seen. No significant enlarged retroperitoneal lymph nodes are seen. There is a small hiatal hernia present. The stomach is nondistended. There is a percutaneous gastrostomy tube present in the antrum of the stomach. There is dilated loop of bowel in the left upper quadrant which would be most consistent with a cecal volvulus. There is a twist in the mesenteric vessels present in the right lower quadrant. The colon is otherwise nondistended and the small bowel is nondistended. There is a small right inguinal hernia containing a small amount of fluid. No free intraperitoneal air or fluid is seen. No significant focal osseous abnormality is seen. The results of this exam were discussed with Dr. Pickard. IMPRESSION: 1. 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 2. SMALL RIGHT INGUINAL HERNIA CONTAINING FLUID. 3. SMALL RIGHT LOWER LOBE INFILTRATE LIKELY ATELECTASIS ALTHOUGH NO PNEUMONIA CANNOT BE EXCLUDED. 4. ENLARGING COMPLEX LESION IN THE LEFT KIDNEY SUSPICIOUS FOR A RENAL TUMOR. RECOMMEND A CONTRAST-ENHANCED CT OF THE KIDNEYS FOR FURTHER EVALUATION WHEN THE PATIENT IS CLINICALLY ABLE.
[2017-03-06] MEDS ORDERED: HYDROmorphone* 1 MG/ML 1 ML SYR IV SLOW PU ONE (08:48)
[2017-03-06] MEDS ORDERED: NS 0.9% 1000 ML* 1,000 ML IV SCH (09:00)
[2017-03-06] MEDS ORDERED: Ertapenem* 1 GM in NS 0.9% 50 ML* 50 ML IVPB ONE (10:00)
[2017-03-06] MEDS ORDERED: Midazolam* 1 MG/ML 5 ML VIAL (5 MG) ONE (10:24)
[2017-03-06] MEDS ORDERED: fentaNYL* 50 MCG/ML 5 ML VIAL (250 MCG VIAL) ONE (10:24)
[2017-03-06] MEDS ORDERED: KETAMINE HCL* 50 MG/ML 10 ML VIAL ONE (10:24)
[2017-03-06] MEDS ORDERED: Lidocaine 2% PF * 5 ML VIAL ONE (10:24)
[2017-03-06] MEDS ORDERED: Dexamethasone IV* 4 MG/ML 1 ML (4 MG) ONE (10:24)
[2017-03-06] MEDS ORDERED: Rocuronium* 10 MG/ML VIAL ONE (10:24)
[2017-03-06] MEDS ORDERED: Ondansetron INJ* 2 MG/ML VIAL ONE (10:24)
[2017-03-06] MEDS ORDERED: Ketorolac INJ* 30 MG/ML 1 ML VIAL ONE (10:24)
[2017-03-06] MEDS ORDERED: Propofol* 10 MG/ML 20 ML BTL IV PUSH ONE (10:24)
--- NOTE | 2017-03-06 11:07 | ED ---
Félix Spence Salem, scribed for Conor Pickard MD on 03/06/17 at 0829 . Progress - Progress Note Progress Note: Patient was signed out from Dr. Clark. 71 y/o M presents with RLQ pain since 2 days ago. He states that his last BM was several days ago. Re-evealuated pt at 0824. Explained CT finding. Pending surgery consult. Physical Exam - Summary Physical Exam Summary: The patient is well-nourished in no acute distress and in no acute pain. The skin is warm and dry and skin color reflects adequate perfusion. HEENT: The head is normocephalic and atraumatic. The pupils are equal and reactive. The conjunctivae are clear and without drainage. Neck is supple with full range of motion and non-tender. Respiratory: Chest is non-tender. Lungs are clear to auscultation and breath sounds are symmetrical and equal. Cardiovascular: Hear is regular rate and rhythm. There is no murmur or rub auscultated. Abdomen: The abdomen is soft and RLQ tenderness. Distended. Diminished bowel sounds. Tympanitic abdomen. Musculoskeletal: There is no back pain noted. Extremities are non-tender with full range of motion. Neurological: Patient is alert and oriented to person, place and time. The patient has symmetrical motor strength in all four extremities. Psychiatric: The patient has an appropriate affect and does not exhibit any anxiety or depression. Triage Information Reviewed: Yes Vital Signs On Initial Exam: Initial Vitals Temp Pulse Resp BP Pulse Ox 98.1 F 71 18 129/66 100 03/05/17 22:03 03/05/17 22:03 03/05/17 22:03 03/05/17 22:03 03/05/17 22:03 Vital Signs Reviewed: Yes - Yuki Coma Scale Coma Scale Total: 15 Re-Evaluation - Re-Evaluation First Eval Re-Evaluation Time: 03:46 Change: Worse Comment: Discussed lab and imaging study results with Pt. Pt notes his pain is increased. Course/Dx - Course Course Of Treatment: Dr. Blanchard (radiology) @ 0820. Discussed CT scan. Reports cecal volvulus rather than distended stomach and questionable cell carcinoma. Thus, will hold off on PEG tube and consult surgery. Dr. Mariano saw pt in ED. He requested a aviles, pain medication, and fluids. - Diagnoses Provider Diagnoses: Cecal volvulus, Hypotension, Dehydration, Positive troponin. - Provider Notifications Discussed Care Of Patient With: Sidney Mariano Time Discussed With Above Provider: 08:30 Instructed by Provider To: Admit As Inpatient Admit/Transition Orders Completed By ED Provider: Yes Discharge - Discharge Plan Condition: Stable Disposition: ADMITTED TO [facility] The documentation as recorded by the Félix gonzales Salem accurately reflects the service I personally performed and the decisions made by me, Conor Pickard MD.
[2017-03-06] MEDS ORDERED: Phenylephrine IV* 40 MCG/ML 10 ML SYRINGE ONE (11:33)
[2017-03-06] MEDS ORDERED: DiMENhydriNATE IV* 50 MG/ML VIAL IV PUSH PRN (11:57)
[2017-03-06] MEDS ORDERED: fentaNYL* 50 MCG/ML 2 ML VIAL (100 MCG VIAL) IV PRN (11:57)
[2017-03-06] MEDS ORDERED: HYDROmorphone* 1 MG/ML 1 ML SYR IV PRN (11:57)
[2017-03-06] MEDS ORDERED: Ondansetron INJ* 2 MG/ML VIAL IV PRN ×2 (11:57→13:32)
[2017-03-06] MEDS ORDERED: Acetaminophen IV 1GM/100ML * 10 MG/ML VIAL IVPB ONE (11:57)
[2017-03-06] MEDS ORDERED: Acetaminophen IV 1GM/100ML * 100 ML ONE (12:34)
[2017-03-06] MEDS ORDERED: HYDROmorphone* 1 MG/ML 1 ML SYR ONE ×2 (12:39→13:13)
[2017-03-06] MEDS ORDERED: Neostigmine Methylsulfate* 2 MG/2 ML SYRINGE ONE (12:40)
[2017-03-06] MEDS ORDERED: Glycopyrrolate IV* 0.2 MG/ML 1 ML VIAL ONE (12:40)
[2017-03-06] MEDS ORDERED: fentaNYL* 50 MCG/ML 2 ML VIAL (100 MCG VIAL) ONE (13:13)
[2017-03-06] MEDS ORDERED: Acetaminophen TAB* 325 MG PO PRN (13:25)
--- NOTE | 2017-03-06 13:25 | PN ---
Progress Note - Progress Note Note: Brief Operative Note: Preop Dx: Cecal volvulus Postop Dx: same Procedure: Exploratory Laparotomy; Right colectomy Anesthesia: MATT Surgeon: Montserrat Asst: ANJELICA Jerome Fluids: 2450 ml crystalloid EBL: < 100 ml Drains: none Specimen: right colon Findings: dictated
[2017-03-06] MEDS ORDERED: Acetaminophen IV 1GM/100ML * 1,000 MG/100 ML VIAL IVPB ONE (14:00)
[2017-03-06] MEDS: Pantoprazole IV* 40 MG IV SCH (15:21)
[2017-03-06] MEDS ORDERED: HYDROmorphone PCA* 20 MG/20 ML PCA.SYRING PCA SCH (16:00)
[2017-03-07] MEDS ORDERED: Ketorolac INJ* 30 MG/ML 1 ML VIAL IV PRN (06:00)
[2017-03-07] MEDS: Levothyroxine TAB* 88 MCG TAB PEG TUBE SCH (06:09)
[2017-03-07] MEDS: Heparin VIAL(*) 5000 UNITS/ML VIAL (FIVE THOUSAND) SUBCUT SCH ×3 (06:09→21:37)
[2017-03-07 06:55] LABS: Hematocrit 25 % (42-52); Hemoglobin 8.4 g/dl (14.0-18.0); Mean Corpuscular HGB Conc 33 g/dl (31-36); Mean Corpuscular Hemoglobin 34 pg (27-31); Mean Corpuscular Volume 101 fL (80-94); Mean Platelet Volume 9 um3 (7.4-10.4); Red Blood Count 2.49 10^6/ul (4.0-5.4); Red Cell Distribution Width 15 % (10.5-15); White Blood Count 8.2 10^3/ul (3.5-10.8)
[2017-03-07 07:11] LABS: Calcium 8.2 mg/dL (8.6-10.3); EGFR African American 141.1 (>60); EGFR Non-African American 109.7 (>60); Magnesium 1.6 mg/dL (1.9-2.7); Phosphorus 2.9 mg/dL (2.5-5.0); Potassium 4.4 mmol/L (3.5-5.0)
--- NOTE | 2017-03-07 07:42 | PN ---
Progress Note - Progress Note SOAP: Subjective: []Surgery yesterday. Comfortable on TAX COMPLIANCE REPRESENTATIVE. Not passing gas. No fevers. Had been doing better before event. Still with port, still using PEG. Has been seeing speech therapy for assistance with swallowing. Not taking much by mouth. Acetaminophen (Tylenol Tab*) 650 mg PO Q4H PRN PRN Reason: Pain Or Temperature >101 F Heparin Sodium (Porcine) (Heparin Vial(*)) 5,000 units SUBCUT Q8HR [facility] Last Admin: 03/07/17 06:09 Dose: 5,000 units Lactated Ringer's (Lactated Ringers 1000 Ml Bag*) 1,000 mls @ 150 mls/hr IV .per rate [facility] Last Admin: 03/07/17 02:06 Dose: 150 mls/hr Hydromorphone HCl (Dilaudid Paint Supervisor*) 20 mg in 20 mls @ 0 mls/hr TAX COMPLIANCE REPRESENTATIVE .change Q24H BLANK; Per Protocol PRN Reason: Protocol Ketorolac Tromethamine (Toradol Inj*) 30 mg IV Q6H PRN PRN Reason: PAIN Levothyroxine Sodium (Synthroid Tab*) 88 mcg PEG TUBE DAILY@0600 [facility] Last Admin: 03/07/17 06:09 Dose: 88 mcg Ondansetron HCl (Zofran Inj*) 4 mg IV Q4H PRN PRN Reason: NAUSEA/VOMITING Pantoprazole Sodium (Protonix Iv*) 40 mg IV Q24H [facility] Last Admin: 03/06/17 15:21 Dose: 40 mg Objective: [] Vital Signs Temp Pulse Resp BP Pulse Ox 98.3 F 70 15 131/46 96 03/07/17 03:50 03/07/17 06:30 03/07/17 06:30 03/07/17 06:30 03/07/17 06:30 HEENT - Healed from radiation but scaring and dry mouth. CTA, not taking deep breaths Port accessed RRR S1S2 No bowl sounds, bandage. PEG in place Ext w/o edema, warm CT - Had had small renal lesion on PET In September, increased and suspicion for second primary lesion. No other abdominal disease. Assessment: []71 year old who completed chemotherapy and radiation in December for cancer or oropharynx. Course complicated by multiple hospitalizations hyponatremia. Now s /p hemicolectomy yesterday for cecal volvulus. Plan: []1. Doing well on post operative day 1, no BS today on my exam. 2. Has not had significant oral intake and swallowing compromised, when ready, intake through PEG and hold on oral intake until off pain medication. 3. Renal lesion. Seen in September but evaluation delayed until improved from Rx cancer or oropharynx. Due for PET next month to restage the head and neck caner. Will plan follow up CT of abdomen with contrast at that time. May need surgery 4. Anemia. Transfuse 1 U PRBC 5. History of hyponatremia, stable but monitor.
[2017-03-07] MEDS ORDERED: Magnesium Sulfate 2 GM IV* 2 GM/50 ML BAG IVPB ONE (07:47)
[2017-03-07 09:23] LABS: Total Iron Binding Capacity 155 mcg/dL (250-450); Transferrin 111 mg/dL (203-362)
[2017-03-07 09:25] LABS: Iron < 15 ug/dL (50-212)
[2017-03-07 09:48] LABS: Vitamin B12 403 pg/mL (180-914)
--- NOTE | 2017-03-07 13:48 | PN ---
Progress Note - Progress Note Note: Surgery Progress: S: POD #1. Pain controlled w/ COMMUNITY NUTRITION EDUCATOR. Denies N/V, but does have hiccups. No flatus. Seen earlier by Dr. Nuñez. Transfused one unit RBCs and given one run of Mg. O: Vital Signs - 8 hr 03/07/17 03/07/17 03/07/17 06:30 08:00 08:07 Temperature 98.8 F Pulse Rate 70 74 Respiratory 15 18 Rate Blood Pressure 131/46 122/42 (mmHg) O2 Sat by Pulse 96 95 95 Oximetry 03/07/17 03/07/17 03/07/17 10:00 10:43 11:17 Temperature 97.6 F 97.9 F Pulse Rate 71 72 Respiratory 20 20 18 Rate Blood Pressure 134/55 128/51 (mmHg) O2 Sat by Pulse 95 99 100 Oximetry 03/07/17 12:00 Temperature Pulse Rate Respiratory 18 Rate Blood Pressure (mmHg) O2 Sat by Pulse 99 Oximetry Intake and Output Last 24 Hours 03/05/17 03/06/17 03/07/17 03/08/17 06:59 06:59 06:59 06:59 Intake Total 1999 4497 1386 Output Total 1450 Balance 1999 3047 1386 Weight 135 lb 135 lb Intake: IV Fluids 1999 4442 LR 2440 NS 1999 IVPB 1022 LR 1022 Medicated IV 50 GEN - Magnesium 50 Oral 55 Packed Cells 314 Output: Avila 1450 Other: # Bowel Movements 0 Heart: reg Lungs: clear Abd: few BS; dsg dry, intact (I did not change). Soft; mostly R-sided tenderness. Labs: Laboratory Tests 03/07/17 03/07/17 06:42 06:42 WBC 8.2 Hgb 8.4 L Potassium 4.4 Magnesium 1.6 L A: s/p ex lap, R colectomy for cecal vovulus, doing well P: await GI fct; cont COMMUNITY NUTRITION EDUCATOR; recheck labs 03/08; will check w/ Dr. Mariano re: Avila.
[2017-03-07] MEDS: Pantoprazole IV* 40 MG IV SCH (15:06)
[2017-03-08] MEDS: Heparin VIAL(*) 5000 UNITS/ML VIAL (FIVE THOUSAND) SUBCUT SCH ×3 (05:28→21:19)
[2017-03-08] MEDS: Levothyroxine TAB* 88 MCG TAB PEG TUBE SCH (05:30)
[2017-03-08 06:19] LABS: Hematocrit 26 % (42-52); Hemoglobin 8.8 g/dl (14.0-18.0); Mean Corpuscular HGB Conc 34 g/dl (31-36); Mean Corpuscular Hemoglobin 33 pg (27-31); Mean Corpuscular Volume 99 fL (80-94); Mean Platelet Volume 9 um3 (7.4-10.4); Red Blood Count 2.65 10^6/ul (4.0-5.4); Red Cell Distribution Width 15 % (10.5-15); White Blood Count 7.8 10^3/ul (3.5-10.8)
[2017-03-08 06:36] LABS: BUN/Creatinine Ratio 29.3 (8-20); Calcium 8.2 mg/dL (8.6-10.3); EGFR African American 178.1 (>60); EGFR Non-African American 138.5 (>60); Magnesium 1.6 mg/dL (1.9-2.7); Potassium 3.8 mmol/L (3.5-5.0)
[2017-03-08] MEDS ORDERED: Magnesium Sulfate 2 GM IV* 2 GM/50 ML BAG IVPB ONE (10:49)
--- NOTE | 2017-03-08 11:06 | PN ---
Progress Note - Progress Note Date of Service: 03/08/17 Note: Surgery Progress: S: POD #2. Doing better. Adeq pain control from [facility]. Urinating well. No N/V. No flatus or BM. Ambulating. O: Vital Signs - 8 hr 03/08/17 03/08/17 03/08/17 03:33 04:00 06:00 Temperature 98.6 F Pulse Rate 74 Respiratory 20 18 19 Rate Blood Pressure 148/55 (mmHg) O2 Sat by Pulse 98 96 96 Oximetry 03/08/17 03/08/17 07:45 07:52 Temperature 98.1 F Pulse Rate 72 Respiratory 19 11 Rate Blood Pressure 152/62 (mmHg) O2 Sat by Pulse 96 97 Oximetry Intake and Output Last 24 Hours 03/06/17 03/07/17 03/08/17 03/09/17 06:59 06:59 06:59 06:59 Intake Total 1999 4497 3372 Output Total 1450 1875 325 Balance 1999 3047 1497 -325 Weight 135 lb 135 lb Intake: IV Fluids 1999 4442 1826 LR 2440 1826 NS 1999 IVPB 1022 LR 1022 Medicated IV 50 GEN - Magnesium 50 Oral 55 160 Packed Cells 314 Output: Urine 1250 325 Avila 1450 Straight Cath 625 Other: # Bowel Movements 0 0 Gen: NAD Heart: reg Lungs: clear Abd: few BS; incision clean and dry; no active drainage; mildly distended; soft ; mild, mostly R-sided tenderness. Extr: SCDs on Labs: Laboratory Tests 03/08/17 06:03 Sodium 134 Potassium 3.8 Chloride 101 BUN 17 Creatinine 0.58 L Magnesium 1.6 L A: s/p ex lap, R colectomy; doing well overall. (patient also seen and examined by Dr. Mariano) P: replete Mg; change IV to D51/2NS w/ K; recheck H&H in a.m.; start G-tube feeds
[2017-03-08] MEDS: D5LR 20 MEQ KCL 1000 ML BAG* 1,000 ML IV SCH (12:37)
--- NOTE | 2017-03-08 13:08 | PN ---
Progress Note - Progress Note Date of Service: 03/08/17 SOAP: Subjective: Pt seen and examined. Case d/w Chase Jerome. Note reviewed and agreed to. Objective: af vss uo fail abdo: soft/mild distension/ NT Path reviewed with pt. Assessment: POD2 r hemicolectomy Plan: Plan as per Chase Jerome's note SACMA to cover me until 03/11/17
[2017-03-08] MEDS: Pantoprazole IV* 40 MG IV SCH (14:20)
[2017-03-09] MEDS: D5LR 20 MEQ KCL 1000 ML BAG* 1,000 ML IV SCH ×2 (04:13→18:34)
[2017-03-09] MEDS: Heparin VIAL(*) 5000 UNITS/ML VIAL (FIVE THOUSAND) SUBCUT SCH ×3 (06:14→21:40)
[2017-03-09] MEDS: Levothyroxine TAB* 88 MCG TAB PEG TUBE SCH (06:15)
[2017-03-09 06:32] LABS: Hematocrit 26 % (42-52); Hemoglobin 8.8 g/dl (14.0-18.0)
--- NOTE | 2017-03-09 09:43 | PN ---
Progress Note - Progress Note Date of Service: 03/09/17 SOAP: Subjective: Mild pain, well controlled. No CP/SOB. No BM/flatus. Objective: Fuzz=452 Vital Signs Temp 98.7 F 03/09/17 07:47 Pulse 71 03/09/17 07:47 Resp 18 03/09/17 07:54 BP 144/64 03/09/17 07:47 Pulse Ox 96 03/09/17 07:54 NAD Abd: incis c/d/i, no erythema; PEG intact with TF runnning. Softly distended; mild tenderness. Intake & Output 03/08/17 03/09/17 03/09/17 18:59 06:59 18:59 Intake Total 1414 1843 Output Total 1725 1260 Balance -311 583 Intake: IV Fluids 1409 992 D5W LR 20 meq KCL 992 LR 1409 IVPB 5 53 Magnesium 5 53 Oral 600 Tube Feeding 138 Tube Feeding Flush Amount 60 Output: Urine 1725 1260 Laboratory Results - last 24 hr 03/09/17 06:05 Hgb 8.8 L Hct 26 L Assessment: POD#3 s/p R colon rsxn. Doing well. Plan: Cont current tx. Await GI fct.
[2017-03-09] MEDS: Pantoprazole IV* 40 MG IV SCH (13:56)
[2017-03-10] MEDS: Levothyroxine TAB* 88 MCG TAB PEG TUBE SCH (05:32)
[2017-03-10] MEDS: Heparin VIAL(*) 5000 UNITS/ML VIAL (FIVE THOUSAND) SUBCUT SCH ×3 (05:38→22:23)
[2017-03-10] MEDS: D5LR 20 MEQ KCL 1000 ML BAG* 1,000 ML IV SCH (08:47)
[2017-03-10] MEDS ORDERED: D5LR 20 MEQ KCL 1000 ML BAG* 1,000 ML IV SCH (10:09)
--- NOTE | 2017-03-10 10:09 | PN ---
Progress Note - Progress Note Date of Service: 03/10/17 SOAP: Subjective: Pain when he sits up from lying down, otherwise not much pain. No N/V/BM/ flatus. Objective: Vital Signs Temp 97.9 F 03/10/17 06:56 Pulse 64 03/10/17 06:56 Resp 18 03/10/17 07:34 BP 147/61 03/10/17 06:56 Pulse Ox 99 03/10/17 07:34 NAD abd: incis c/d/i; no erythema; soft; min tender. Intake & Output 03/09/17 03/10/17 03/10/17 18:59 06:59 18:59 Intake Total 942 1145 Output Total 1100 1000 200 Balance -158 145 -200 Intake: IV Fluids 683 1070 D5W LR 20 meq KCL 683 1070 Oral 100 75 Tube Feeding 99 Tube Feeding Flush Amount 60 Output: Urine 1100 1000 200 Tube Feeding Residual 0 Amount Wasted Assessment: POD#4 s/p right colectomy. Doing well. Plan: Await gi fct. Cont TF at low rate. KVO IVF.
[2017-03-10] MEDS: Pantoprazole IV* 40 MG IV SCH (13:54)
[2017-03-11] MEDS: Levothyroxine TAB* 88 MCG TAB PEG TUBE SCH (06:00)
[2017-03-11] MEDS: Heparin VIAL(*) 5000 UNITS/ML VIAL (FIVE THOUSAND) SUBCUT SCH ×3 (06:05→21:54)
[2017-03-11] MEDS ORDERED: NS 0.9% 500 ML BAG* 500 ML IV SCH (13:00)
--- NOTE | 2017-03-11 13:06 | SURGPN ---
Subjective - Introduction -: Reports doing a little better today. Denies any pain, nausea, vomiting, fever or chills. Passed a little flatus this AM. Also notes decreased urinary output, but still able to void. G-tube feeding rate is 10 cc/hr at this time. - Medications -: Active Medications Generic Name Dose Route Start Last Admin Trade Name Freq PRN Reason Stop Dose Admin Acetaminophen 650 mg 03/06/17 13:25 Tylenol Tab* PO Q4H PRN Pain Or Temperature >101 F Heparin Sodium (Porcine) 5,000 units 03/07/17 06:00 03/11/17 06:05 Heparin Vial(*) SUBCUT 5,000 units Q8HR BLANK Administration Hydromorphone HCl 20 mg in 20 mls @ 0 mls/hr 03/06/17 16:00 03/09/17 06:46 Dilaudid Plastering Contractor* CURING ROOM SUPERVISOR 1 mls/hr .change Q24H BLANK Administration Protocol Per Protocol Potassium Cl/Dextrose/Lact Ringer's 1,000 mls @ 0 mls/hr 03/10/17 10:09 03/10 10:10 D5lr 20 Meq Kcl 1000 Ml Bag* IV 30 mls/hr PER RATE BLANK Administration KVO Sodium Chloride 500 mls @ 1,000 mls/hr 03/11/17 13:00 Ns 0.9% 500 Ml Bag* IV .BOLUS BLNAK Sodium Chloride 1,000 mls @ 100 mls/hr 03/11/17 13:00 Ns 0.9% 1000 Ml* IV PER RATE BLANK Ketorolac Tromethamine 30 mg 03/07/17 06:00 Toradol Inj* IV Q6H PRN PAIN Levothyroxine Sodium 88 mcg 03/07/17 06:00 03/11/17 06:00 Synthroid Tab* PEG TUBE 88 mcg DAILY@0600 BLANK Administration Ondansetron HCl 4 mg 03/06/17 13:32 Zofran Inj* IV Q4H PRN NAUSEA/VOMITING Pantoprazole Sodium 40 mg 03/06/17 14:00 03/10/17 13:54 Protonix Iv* IV 40 mg Q24H BLANK Administration Objective - Objective -: Awake and alert, comfortable in bed, in NAD. - Intake and Output -: Intake & Output 03/09/17 03/10/17 03/11/17 03/12/17 06:59 06:59 06:59 06:59 Intake Total 3257 2087 998 Output Total 2985 2100 1120 100 Balance 272 -13 -122 -100 Intake: IV Fluids 2401 1753 518 D5W LR 20 meq KCL 992 1753 518 LR 1409 IVPB 58 Magnesium 58 Oral 600 175 125 Tube Feeding 138 99 235 Tube Feeding Flush Amount 60 60 120 Output: Urine 2985 2100 1120 100 Tube Feeding Residual 0 0 Amount Wasted Other: # Bowel Movements 0 Surgical Physical Exam - Comments -: Lungs CTA bilat. No rales or wheezes. Heart RRR, no murmurs. Abdomen soft, moderately distended, non-tender. Incision C/D/I. G-tube intact, no leak. 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 - Plan Additional Comments: Increase feeding rate to 30 cc/hr, then to be increased gradually to a max of 70 cc/hr Dehydration, NS bolus, then resume IVF Post-op ileus, await bowel function, check abdominal xray tomorrow. D/c CURING ROOM SUPERVISOR, morphine and percocet prn
[2017-03-11] MEDS ORDERED: Morphine INJ* 2 MG/ML 1 ML SYRINGE IV PRN (13:08)
[2017-03-11] MEDS: Pantoprazole IV* 40 MG IV SCH (15:21)
[2017-03-11] MEDS: NS 0.9% 1000 ML* 1,000 ML IV SCH (21:56)
[2017-03-11] MEDS: oxyCODONE/Acetamin 5/325 MG* TAB PO PRN (23:18)
[2017-03-12] MEDS: Levothyroxine TAB* 88 MCG TAB PEG TUBE SCH (05:09)
[2017-03-12] MEDS: oxyCODONE/Acetamin 5/325 MG* TAB PO PRN ×2 (05:09→09:49)
[2017-03-12] MEDS: Heparin VIAL(*) 5000 UNITS/ML VIAL (FIVE THOUSAND) SUBCUT SCH ×3 (06:19→22:13)
[2017-03-12] MEDS: NS 0.9% 1000 ML* 1,000 ML IV SCH (07:51)
--- NOTE | 2017-03-12 08:22 | RAD ---
HISTORY: Status post right colectomy COMPARISONS: CT dated March 06, 2017 VIEWS: Frontal views of the abdomen. FINDINGS: BOWEL: There is distention and mild dilatation of small bowel loops within the midabdomen. A gastrostomy is noted. CALCULI: There are no abnormal calculi. BONES AND SOFT TISSUES: Degenerative changes are noted OTHER FINDINGS: There is a small right pleural effusion with right basilar atelectasis versus consolidation. There is no subphrenic gas. IMPRESSION: 1. MILDLY DILATED LOOPS OF SMALL BOWEL. THE DIFFERENTIAL INCLUDES ILEUS VERSUS EARLY OBSTRUCTION. RECOMMEND ATTENTION ON FOLLOW-UP EXAMINATION. 2. SMALL RIGHT PLEURAL EFFUSION WITH RIGHT BASILAR ATELECTASIS VERSUS CONSOLIDATION
--- NOTE | 2017-03-12 09:02 | PN ---
Progress Note - Progress Note Date of Service: 03/12/17 SOAP: Subjective: Pt seen and examined. Feeling better today. Some pain overnight. Positive flatus. No BM. No nausea. less burping. Tube feeds up to 60 w/o residuals. Objective: af vss lungs clear abdo: soft/mild distension/NT staple line intact, eccymosis but no erythema no calf tenderness Axr report reviewed Assessment: POD 6 r hemicolectomy, improving Plan: Home meds. Advance tube feeds iv lock d/c home tomorrow
[2017-03-12] MEDS ORDERED: Docusate CAP* 100 MG PO PRN (09:03)
[2017-03-12] MEDS ORDERED: Polyethylene Glycol 3350* 17 GM PACKET PO SCH (09:30)
[2017-03-12] MEDS ORDERED: Docusate LIQ* 100 MG/10 ML UDC PO PRN (10:08)
[2017-03-12] MEDS ORDERED: Acetaminophen ADULT LIQ* 650 MG/20.3 ML UDC PEG TUBE PRN (10:09)
[2017-03-12] MEDS: Pantoprazole IV* 40 MG IV SCH (15:23)
[2017-03-12] MEDS: oxyCODONE/Acetamin 5/325 MG* TAB PEG TUBE PRN ×2 (17:20→22:14)
[2017-03-12] MEDS: Polyethylene Glycol 3350* 17 GM PACKET PEG TUBE SCH (22:14)
[2017-03-13] MEDS: Levothyroxine TAB* 88 MCG TAB PEG TUBE SCH (05:51)
[2017-03-13] MEDS: Heparin VIAL(*) 5000 UNITS/ML VIAL (FIVE THOUSAND) SUBCUT SCH ×2 (05:52→16:09)
[2017-03-13] MEDS: Polyethylene Glycol 3350* 17 GM PACKET PEG TUBE SCH (10:12)
[2017-03-13] MEDS: oxyCODONE/Acetamin 5/325 MG* TAB PEG TUBE PRN (10:12)
[2017-03-13 13:49] VITALS: BP 151/53
[2017-03-13] MEDS: Pantoprazole IV* 40 MG IV SCH (15:51)
--- NOTE | 2017-03-13 16:04 | PN ---
Progress Note - Progress Note Date of Service: 03/13/17 SOAP: Subjective: Reports feeling much better today. Denies pain, nausea or vomiting. Ready to go home. Objective: Awake and alert, in NAD VSS, afebrile Abdomen soft, NT/ND. Incisions C/D/I. Assessment: Doing well, POD#7, s/p Right hemicolectomy. Plan: Resume tube feeding at home. D/C to home today. F/U next week in office for staple removal.
--- NOTE | 2017-03-15 11:10 | OP ---
CC: Dr. Claudia George OPERATIVE REPORT: DATE OF OPERATION: 03/06/17 DATE OF : 47 SURGEON: Sidney Mariano MD. SHIFT STACKER: ANJELICA Franz. ANESTHESIOLOGIST: Dr. Nix. ANESTHESIA: General anesthesia. PRE-OP DIAGNOSIS: Cecal volvulus. POST-OP DIAGNOSIS: Cecal volvulus. PROCEDURE: Exploratory laparotomy, right colectomy. ESTIMATED BLOOD LOSS: Less than 100 cc. FLUIDS: 2400 cc of crystalloid fluid given. DRAINS: None. SPECIMEN: Right colon. DESCRIPTION OF PROCEDURE: Mr. Rajan was identified in the preoperative area, marked, seen by the an esthesiologist and brought to the operating room, placed on the operating room table in a supine pos ition. Preoperative antibiotics were given. Sequential devices were placed on bilateral lower extr emities. General anesthesia was induced. The patient's abdomen was clipped of hair and prepped and draped in the standard surgical fashion and a time-out was performed. An incision was made a handbreadth above the umbilicus and to a handbreadth below, going round the r ight side of the umbilicus, this was deepened down through all layers of the abdominal wall and entr y to the abdominal cavity was made. Non-foul smelling fluid was then drained. A large volvulized c olon was then brought out through this incision, maintained its twisting orientation. It showed cecily e patches of gangrene but no evidence of perforation. The LigaSure device was then utilized to take some of the vessels to this site. We then detorsed this cecum and we were able to bring out more of the small bowel extending towards the ileocecal valve. This was all intact. Next, attention was turned towards the transverse colon that was attached to the gallbladder, this w as sharply dissected off and allowed us to retract more inferiorly and enter into the plane to free the hepatic flexure. Once the hepatic flexure was freed, the large bowel was identified. The torse d portion would be removed along with the hepatic flexure, which was normal-appearing bowel. chosen on the proximal transverse colon just at the area of a good blood vessel and then agai n at the small bowel, the vasculature was taken with a LigaSure device. The two ends were brought i n apposition to each other, a colotomy and enterotomy was made and a 80-mm NAS stapler was fired acr oss the small bowel against the taenia of the transverse colon to create the anastomosis. The bowel was then transected with a 90 TA blue load stapling device and passed off as specimen. The corners of the stapled anastomosis were dunked with 3-0 silk sutures. The mesenteric defect was reapproxim ated with 2-0 Polysorb suture in a running fashion. Wound was then irrigated and hemostasis was exc ellent. Then dropped the colon back into the abdomen. Liver was examined. There were no evidence of lesions. The NG tube was checked for positioning. The midline incision was then reapproximated with #1 Polysorb suture in a [id number] fashion. Wound was then irrigated and stapled at the s kin level. Sterile dressing was applied. The patient tolerated the procedure well, was woken up in the OR and transferred to the PACU in stable condition. [id number]/[facility] #: [id number]
== END 2017-03-13 16:25 | disposition home or self-care (01) | DRG 331 ==
LOC: ED 21:43 → OR 03-06 09:31 → SSU 03-06 14:18
PROVIDERS: ADMIT Surgery; ATTEND Surgery
PROC: 0DTF0ZZ Resection of Right Large Intestine, Open Approach (ICD-10-PCS; principal; 2017-03-06 14:45)
PROC: 30233N1 Transfusion of Nonautologous Red Blood Cells into Peripheral Vein, Percutaneous Approach (ICD-10-PCS; 2017-03-07)
DX: K56.2 Volvulus (principal); C09.9 Malignant neoplasm of tonsil, unspecified; C10.9 Malignant neoplasm of oropharynx, unspecified; Z93.1 Gastrostomy status; I10 Essential (primary) hypertension; D64.9 Anemia, unspecified; E03.9 Hypothyroidism, unspecified; M06.9 Rheumatoid arthritis, unspecified; F17.210 Nicotine dependence, cigarettes, uncomplicated; Z92.21 Personal history of antineoplastic chemotherapy; Z92.3 Personal history of irradiation
CPT/HCPCS: 36415; 74020; 74176; 74177; 80048; 80053; 81003; 82607; 82728; 83540; 83550; 83605; 83690; 83735; 84100; 85014; 85018; 85025; 85610; 85730; 86140; 86850; 86900; 86901; 86922; 88307; 94760; A9270-GY; J1100; J1170; J1335; J1642; J1644; J1885; J2250; J2270; J2405; J2704; J3010; P9040

== ENCOUNTER 2017-04-03 17:43 | Emergency (ER) | payer MEDICARE, BC ==
[2017-04-03 19:30] VITALS: BP 119/58
--- NOTE | 2017-04-03 22:18 | ED ---
Renea Spence Alok, scribed for Jose Ramon Corley MD on 04/03/17 at 1828 . GI/ HPI - HPI Summary HPI Summary: 71M presents to the ED for erythema, swelling, and some bleeding at his J-tube site at the abd. Pt states he has had the J-tube in place since Oct 2016 and states it is still functioning. Pt states tenderness at the J-tube site during cleaning with cue-tip and alcohol. PMHx/PSHx includes CA patient and colectomy. - History of Current Complaint Chief Complaint: EDGeneral Time Seen by Provider: 04/03/17 18:17 Stated Complaint: SKIN AROUND FEEDING TUBE RED,BLEEDING Hx Obtained From: Patient Onset/Duration: Atraumatic, Still Present Timing: Constant Severity: Moderate Current Severity: Moderate Pain Intensity: 2 Location of Pain: Epigastric Associated Signs and Symptoms: Positive: Other: - bleeding, erythema, and swelling at J-tube site Aggravating Factor(s): Nothing Alleviating Factor(s): Nothing - Additional Pertinent History Primary Care Physician: [id number] - Allergy/Home Medications Allergies/Adverse Reactions: Allergies Allergy/AdvReac Type Severity Reaction Status Date / Time No Known Allergies Allergy Verified 04/03/17 18:07 PMH/Surg Hx/FS Hx/Imm Hx Endocrine/Hematology History: Reports: Hx Thyroid Disease - HYPOTHYROIDISM Cardiovascular History: Reports: Hx Hypertension Respiratory History: Reports: Other Respiratory Problems/Disorders - 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 10/22/2016 EGD WITH PEG TUBE PLACEMENT Hx Anesthesia Reactions: No - LOCAL Infectious Disease History: No Infectious Disease History: Denies: Traveled Outside the [place] in Last 30 Days - Family History Known Family History: Positive: Cardiac Disease - 3x CABG, Hypertension Negative: Diabetes, Other - No FHx of malignant hyperthermia or anesthesia reaction. - Social History Occupation: Retired Lives: With Family Alcohol Use: None Hx Substance Use: No Substance Use Type: Reports: None Hx Tobacco Use: Yes Smoking Status (MU): Former Smoker Type: Cigarettes Amount Used/How Often: 6-8 CIGARETTES PER DAY FOR ABOUT 40 YEARS Have You Smoked in the Last Year: Yes Review of Systems Negative: Fever Positive: Abdominal Pain - skin around J-tube site Positive: Other - erythema, bleeding, and swelling at J-tube site All Other Systems Reviewed And Are Negative: Yes Physical Exam Triage Information Reviewed: Yes Vital Signs On Initial Exam: Initial Vitals Temp Pulse Resp BP Pulse Ox 99.8 F 77 20 130/61 98 04/03/17 17:44 04/03/17 17:44 04/03/17 17:44 04/03/17 17:44 04/03/17 17:44 Vital Signs Reviewed: Yes Appearance: Positive: Well-Appearing, No Pain Distress Skin: Positive: Warm, Dry, Other - swelling and erythema at J-tube site. Head/Face: Positive: Normal Head/Face Inspection Eyes: Positive: Normal ENT: Positive: Normal ENT inspection Neck: Positive: Supple, Nontender Respiratory/Lung Sounds: Positive: Clear to Auscultation, Breath Sounds Present Cardiovascular: Positive: RRR Abdomen Description: Positive: Soft, Other: - swelling and erythema at J-tube site. Bowel Sounds: Positive: Present Musculoskeletal: Positive: Normal Neurological: Positive: Normal Psychiatric: Positive: Normal, Affect/Mood Appropriate Diagnostics - Vital Signs Vital Signs Temp Pulse Resp BP Pulse Ox 04/03/17 17:59 98.9 F 76 16 123/56 98 04/03/17 17:44 99.8 F 77 20 130/61 98 - Laboratory Lab Statement: Any lab studies that have been ordered have been reviewed, and results considered in the medical decision making process. GIGU Course/Dx - Course Course Of Treatment: Mr. Rajan has some mild erythema around his J-tube site his abdomen is soft and not tender. He is not indurated or fluctuant and I will use some topical antibiotic at this point. - Diagnoses Provider Diagnoses: Wound infection Discharge - Discharge Plan Condition: Stable Disposition: HOME Prescriptions: Mupirocin 2% OINT* [Bactroban 2 % Oint*] 1 applic TOPICAL BID #1 tube Patient Education Materials: Wound Infection (ED) Referrals: Claudia George MD [Primary Care Provider] - Additional Instructions: Please follow up with your primary care provider The documentation as recorded by the Renea gonzales Alok accurately reflects the service I personally performed and the decisions made by me, Jose Ramon Corley MD.
== END 2017-04-03 19:30 | disposition home or self-care (01) ==
LOC: ED 17:43
DX: K94.22 Gastrostomy infection (principal); R10.9 Unspecified abdominal pain; Z87.891 Personal history of nicotine dependence
CPT/HCPCS: 99282

== ENCOUNTER 2018-09-25 11:52 | Emergency (ER) | payer MEDICARE, BC ==
--- NOTE | 2018-09-25 12:33 | ED ---
GI/ HPI - HPI Summary HPI Summary: Patient is a 73 y/o M presenting to ED after feeding tube fell out. Feeding tube has been present since October. Patient was walking downstairs with his behind him. His noticed that at this time, feeding tube fell out. No chest pain, no SOB is reported. On triage, pain is denied, nothing is noted to aggravate/alleviate Sx. Home medications, allergies, and nurse's note are reviewed. - History of Current Complaint Chief Complaint: EDGeneral Time Seen by Provider: 09/25/18 12:01 Stated Complaint: FEEDING TUBE FELL OUT Hx Obtained From: Patient Onset/Duration: Still Present Timing: Constant Current Severity: None - pain denied Pain Intensity: 0 Associated Signs and Symptoms: Positive: Other: - negative - SOB, chest pain Aggravating Factor(s): Nothing Alleviating Factor(s): Nothing - Additional Pertinent History Primary Care Physician: [id number] - Allergy/Home Medications Allergies/Adverse Reactions: Allergies Allergy/AdvReac Type Severity Reaction Status Date / Time No Known Allergies Allergy Verified 09/25/18 11:56 PMH/Surg Hx/FS Hx/Imm Hx Endocrine/Hematology History: Reports: Hx Thyroid Disease - HYPOTHYROIDISM Denies: Hx Diabetes Cardiovascular History: Reports: Hx Hypertension Respiratory History: Reports: Other Respiratory Problems/Disorders - 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 10/22/2016 EGD WITH PEG TUBE PLACEMENT Hx Anesthesia Reactions: No - LOCAL Infectious Disease History: No Infectious Disease History: Denies: Traveled Outside the [place] in Last 30 Days - Family History Known Family History: Positive: Cardiac Disease - 3x CABG, Hypertension Negative: Diabetes, Other - No FHx of malignant hyperthermia or anesthesia reaction. - Social History Alcohol Use: None Hx Substance Use: No Substance Use Type: Reports: None Hx Tobacco Use: Yes Smoking Status (MU): Former Smoker Type: Cigarettes Amount Used/How Often: 6-8 CIGARETTES PER DAY FOR ABOUT 40 YEARS Have You Smoked in the Last Year: Yes Review of Systems Positive: Other - POSITIVE - FEEDING TUBE FELL OUT Negative: Chest Pain Negative: Shortness Of Breath All Other Systems Reviewed And Are Negative: Yes Physical Exam - Summary Physical Exam Summary: Appearance: Chronically-ill appearing, no pain distress Skin: warm, dry, reflects adequate perfusion Head/face: normal Eyes: EOMI, HEATHER ENT: mucous membranes moist Neck: supple, non-tenderf Respiratory: CTA, breath sounds present Cardiovascular: RRR, pulses symmetrical Abdomen: non-tender, soft; stoma at LUQ with some yellow drainage Bowel Sounds: present Musculoskeletal: normal, strength/ROM intact Neuro: normal, sensory motor intact, A&Ox3 Triage Information Reviewed: Yes Vital Signs On Initial Exam: Initial Vitals Temp Pulse Resp BP Pulse Ox 97.4 F 69 18 131/66 100 09/25/18 11:54 09/25/18 11:54 09/25/18 11:54 09/25/18 11:54 09/25/18 11:54 Vital Signs Reviewed: Yes Procedures - Procedure Summary Procedure Summary: Feeding tube replacement: Reason: Prior tube dislodgment Description: Patient was verbally consented. He had a mature stoma in the left upper quadrant of his abdomen. There is no bleeding or drainage. A 20 Afghan PEG tube was lubricated with K-Y jelly and placed through the stoma. The balloon was inflated with 8 cc of sterile water. The help was secured snugly to the skin. The tube aspirated gastric contents and flushed easily. Tolerated this well without complication. Diagnostics - Vital Signs Vital Signs Temp Pulse Resp BP Pulse Ox 09/25/18 11:54 97.4 F 69 18 131/66 100 - Laboratory Lab Statement: Any lab studies that have been ordered have been reviewed, and results considered in the medical decision making process. Re-Evaluation - Re-Evaluation First Eval Re-Evaluation Time: 12:40 Change: Improved Comment: EDP performed feeding tube replacement. Patient is agreeable with discharge to home. GIGU Course/Dx - Course Course Of Treatment: Nurse's notes reviewed. Patient with 22 Afghan PEG tube was in place approximately one year. Balloon ruptured. No 22 Afghan available. Placed a 20 Afghan easily and snugly. No leaking. Follow-up GI as needed. - Diagnoses Provider Diagnoses: Encounter for feeding tube placement Discharge - Sign-Out/Discharge Documenting (check all that apply): Patient Departure - discharge - Discharge Plan Condition: Improved Disposition: HOME Patient Education Materials: Percutaneous Endoscopic Gastrostomy Insertion (DC) Referrals: Claudia George MD [Primary Care Provider] - Additional Instructions: Return if worse, leaking around tube, new symptoms or other concerns. Follow- up with GI as needed. - Billing Disposition and Condition Condition: IMPROVED Disposition: Home - Attestation Statements Document Initiated by Scribe: Yes Documenting Scribe: VIVIAN THRASHER Provider For Whom Evonibe is Documenting (Include Credential): ROBBY LICONA MD Scribe Attestation: IVIVIAN , scribed for ROBBY LICONA MD on 09/25/18 at 1447. Scribe Documentation Reviewed: Yes Provider Attestation: The documentation as recorded by the VIVIAN gonzales accurately reflects the service I personally performed and the decisions made by me, ROBBY LICONA MD Status of Scribe Document: Viewed
[2018-09-25 13:20] VITALS: BP 128/67
== END 2018-09-25 13:19 | disposition home or self-care (01) ==
LOC: ED 11:52
DX: Z43.1 Encounter for attention to gastrostomy (principal); Z87.891 Personal history of nicotine dependence
CPT/HCPCS: 99282

== ENCOUNTER 2019-02-15 11:04 | Inpatient (IN) | payer MEDICARE, BC ==
--- OUTSIDE RECORDS SUMMARY | 2019-02-15 11:34 | XMS REPORT | Continuity of Care Document ---
:1945 Author Organization [facility] Care Team Providers Name Role Phone KT CLARKE Admitting Physician KT CLARKE Attending Physician Allergies and Intolerances No Known Allergies Medications RxNorm Medication Dose Route Instructions Start End Date Status Date 20021220 cefdinir 300 MG 300 mg oral orally every 12 Active Oral Capsule hours (5 days) 7704286 Fluticasone 2 spray intranasal intranasally 2 Active propionate 0.05 times per day MG/ACTUAT Metered Dose Nasal [place] 551539 Levothyroxine 88 MCG ORAL ONCE A DAY AT Active Sodium 0.1 MG 0600 Oral Tablet 167584 Lisinopril 10 MG 10 mg oral orally every day Active Oral Tablet at bedtime 8640 Prednisone 40 mg oral orally every day Active (5 days) (administer with food or milk) 8327129 Triamcinolone 1 applic dental to dental area 2 Active Acetonide 0.001 times per day as MG/MG Oral Paste needed. ( use after food and/or drink and/or oral hygiene;) Problems No Data in the system Procedures No data in the system Results Laboratory Results Order: C REACTIVE PROTEIN Specimen Source : Body Site: Legend: (G,H)=High, (GG,HH,CH,#H)=Above High Threshold, (#,L)=Low, (##,CL,#L,LL)=Below Low Threshold, (C,CC,CA,#A,A)=Abnormal LOINC Test Result Flag Range Units Date 1988-01 1CRP SerPl-mCnc 52.4 H <=5.0 mg/L 12/16/2018 10:00 Performing Lab Footnotes:[facility] - [id number] - [address] [place] [address] DIALLO LOVING Order: CBC DIFF Specimen Source: Body Site: Legend: (G,H)=High, (GG,HH, CH,#H)=Above High Threshold, (#,L)=Low, (##,CL,#L,LL)=Below Low Threshold, (C,CC ,CA,#A,A)=Abnormal LOINC Test Result Flag Range Units Date 6690-2 1WBC # Bld Auto 4.9 4.8-10.8 K/uL 12/16/2018 10:00 94471-0 1RBC # Bld 2.83 L 4.60-6.20 M/uL 12/16/2018 10:00 718-7 1Hgb Bld-mCnc 9.1 L 13.5-18.0 gm/dL 12/16/2018 10:00 4544-3 1Hct VFr Bld Auto 27.4 L 41.0-53.0 % 12/16/2018 10:00 787-2 1MCV RBC Auto 96.6 80.0-100.0 fL 12/16/2018 10:00 12138-0 1MCHC RBC-mCnc 33.4 30.0-36.5 % 12/16/2018 10:00 23211-5 1MCH RBC Qn 32.2 27.0-34.0 pg 12/16/2018 10:00 00127-5 1RDW RBC 12.0 11.0-15.0 % 12/16/2018 10:00 777-3 1Platelet # Bld Auto 426 130-450 K/uL 12/16/2018 10:00 40223-6 1PMV Bld Auto 7.6 6.0-12.0 fL 12/16/2018 10:00 751-8 1Neutrophils # Bld Auto 85 H 37-80 % 12/16/2018 10:00 92426-9 1Lymphocytes NFr Bld 6 L 10-50 % 12/16/2018 10:00 5905-5 1Monocytes NFr Bld Auto 7 0-12 % 12/16/2018 10:00 49687-6 1Eosinophil # Bld 1 <=8 % 12/16/2018 10:00 704-7 1Basophils # Bld Auto 0 <=3 % 12/16/2018 10:00 23499-3 1Neutrophils # Bld 4.2 1.8-8.6 K/uL 12/16/2018 10:00 731-0 1Lymphocytes # Bld Auto 0.3 L 0.5-5.0 K/uL 12/16/2018 10:00 742-7 1Monocytes # Bld Auto 0.3 0.0-1.3 K/uL 12/16/2018 10:00 02061-4 1Eosinophil # Bld 0.1 0.0-0.9 K/uL 12/16/2018 10:00 704-7 1Basophils # Bld Auto 0.0 0.0-0.3 K/ul 12/16/2018 10:00 Performing Lab Footnotes:[facility] - [id number] - [address] [place] [address] DIALLO Cerda [id number] Order: CK Specimen Source: Body Site: Legend: (G,H)=High, (GG,HH,CH,#H) =Above High Threshold, (#,L)=Low, (##,CL,#L,LL)=Below Low Threshold, (C,CC,CA,#A ,A)=Abnormal LOINC Test Result Flag Range Units Date 2157-6 1CK SerPl-cCnc 16 L 21-232 U/L 12/16/2018 10:00 Performing Lab Footnotes:[facility] - [id number] - [address] [place] [address] DIALLO PICKENSD1 Order: COMPREHENSIVE PANEL Specimen Source: Body Site: Legend: (G,H)= High, (GG,HH,CH,#H)=Above High Threshold, (#,L)=Low, (##,CL,#L,LL)=Below Low Threshold, (C,CC,CA,#A,A)=Abnormal LOINC Test Result Flag Range Units Date 2951-2 1Sodium SerPl-sCnc 130 L 136-145 mmol/L 12/16/2018 10:00 2823-3 1Potassium SerPl-sCnc 4.2 3.5-5.2 mmol/L 12/16/2018 10:00 5-0 1Chloride SerPl-sCnc 93 L 100-108 mmol/L 12/16/2018 10:00 8-9 1CO2 SerPl-sCnc 24 21-32 mmol/L 12/16/2018 10:00 2345-7 1Glucose SerPl-mCnc 108 H 70-100 mg/dL 12/16/2018 10:00 3094-0 1BUN SerPl-mCnc 17 7-21 mg/dL 12/16/2018 10:00 2160-0 1Creat SerPl-mCnc 0.8 0.6-1.3 mg/dL 12/16/2018 10:00 Interpretive Leigh: 1Normal Kidney Function or Mild Disease - GFR >OR=60 Chronic Kidney Disease - GFR 15-59 Renal Failure - GFR < 15 GFR not calculated on patients under 18 years of age. Calculated (estimated) GFR is based on the MDRD Study equation, which assumes a steady state for creatinine. Estimated GFR may not be appropriate for medication dosing. 04591-3 1Ca-I SerPl-mCnc 8.7 8.5-10.8 mg/dL 12/16/2018 10:00 01218-9 1GFR/BSA.pred SerPl-ArVRat >60 12/16/2018 10:00 10004-3 1Bilirub Bld-mCnc 0.5 0.0-1.2 mg/dL 12/16/2018 10:00 2885-2 1Prot SerPl-mCnc 7.1 6.4-8.2 gm/dL 12/16/2018 10:00 1751-7 1Albumin SerPl-mCnc 3.1 L 3.2-4.6 gm/dL 12/16/2018 10:00 6768-6 1ALP SerPl-cCnc 105 40-150 U/L 12/16/2018 10:00 1742-6 1ALT SerPl-cCnc 15 0-55 U/L 12/16/2018 10:00 1920-8 1AST SerPl-cCnc 24 5-37 U/L 12/16/2018 10:00 Performing Lab Footnotes:[facility] - [id number] - [address] [place] [address] DIALLO Cerda FABIENNE Order: FERRITIN Specimen Source: Body Site: Legend: (G,H)=High, (GG,HH, CH,#H)=Above High Threshold, (#,L)=Low, (##,CL,#L,LL)=Below Low Threshold, (C,CC ,CA,#A,A)=Abnormal LOINC Test Result Flag Range Units Date 2036- 1Ferritin SerPl-mCnc 195 26-388 ng/mL 12/16/2018 10:00 Performing Lab Footnotes:[facility] - [id number] - [address] [place] [address] DIALLO [id number] Order: FOLATE B-12 Specimen Source: Body Site: Legend: (G,H)=High, (GG, HH,CH,#H)=Above High Threshold, (#,L)=Low, (##,CL,#L,LL)=Below Low Threshold, (C ,CC,CA,#A,A)=Abnormal LOINC Test Result Flag Range Units Date 2284-8 1Folate SerPl-mCnc 14.5 3.1-20.0 ng/mL 12/16/2018 10:00 2132-9 1Vit B12 SerPl-mCnc 138 340-5481 pg/mL 12/16/2018 10:00 Performing Lab Footnotes:[facility] - [id number] - [address] [place] [address] DIALLO [id number] Order: IRON & IRON (Transferrin%) SATURATION Specimen Source: Body Site: Legend: (G,H)=High, (GG,HH,CH,#H)=Above High Threshold, (#,L)=Low, (##,CL, #L,LL)=Below Low Threshold, (C,CC,CA,#A,A)=Abnormal LOINC Test Result Flag Range Units Date 2498-4 1Iron SerPl-mCnc 33 L 50-175 ug/dL 12/16/2018 10:00 2501-5 1UIBC SerPl-mCnc 171 112-346 ug/dL 12/16/2018 10:00 2502-3 1Ipernell Hurtadon MFr SerPl 16 L 22-55 % 12/16/2018 10:00 Performing Lab Footnotes:[facility] - [id number] [place] [address] DIALLO [id number] Order: RHEUMATOID FACTOR Specimen Source: Body Site: Legend: (G,H)=High , (GG,HH,CH,#H)=Above High Threshold, (#,L)=Low, (##,CL,#L,LL)=Below Low Threshold, (C,CC,CA,#A,A)=Abnormal LOINC Test Result Flag Range Units Date 1RF IgG Ser-aCnc POSITIVE ! NEGATIVE 12/16/2018 10:00 1Methodology: Latex Agglutination Performing Lab Footnotes:[facility] - [id number] - [address] [place] [address] DIALLO [id number] Order: RHEUMATOID FACTOR TITER Specimen Source: Body Site: Legend: (G,H )=High, (GG,HH,CH,#H)=Above High Threshold, (#,L)=Low, (##,CL,#L,LL)=Below Low Threshold, (C,CC,CA,#A,A)=Abnormal LOINC Test Result Flag Range Units Date 1RF IgG Ser-aCnc POSITIVE ! NEGATIVE 12/16/2018 10:00 90852-4 1Rheumatoid fact Titr Ser 320 IU/mL 12/16/2018 10:00 1Methodology: Latex Agglutination Performing Lab Footnotes:[facility] - [id number] - [address] [place] [address] DIALLO [id number] Order: SEDRATE ESR Specimen Source: Body Site: Legend: (G,H)=High, (GG, HH,CH,#H)=Above High Threshold, (#,L)=Low, (##,CL,#L,LL)=Below Low Threshold, (C ,CC,CA,#A,A)=Abnormal LOINC Test Result Flag Range Units Date 90355-0 1ESR Bld Qn 110.0 H 0.0-20.0 mm/hr 12/16/2018 10:00 Performing Lab Footnotes:[facility] - [id number] - [address] [place] [address] DIALLO [id number] Order: TSH Specimen Source: Body Site: Legend: (G,H)=High, (GG,HH,CH,#H )=Above High Threshold, (#,L)=Low, (##,CL,#L,LL)=Below Low Threshold, (C,CC,CA,# A,A)=Abnormal LOINC Test Result Flag Range Units Date 3016-3 1TSH SerPl-aCnc 3.91 0.34-4.82 uIU/mL 12/16/2018 10:00 Performing Lab Footnotes:[facility] - [id number] - [address] [place] [address] DIALLO Cerda [id number] Order: VIT D 25 HYDROXY Specimen Source: Body Site: Legend: (G,H)=High , (GG,HH,CH,#H)=Above High Threshold, (#,L)=Low, (##,CL,#L,LL)=Below Low Threshold, (C,CC,CA,#A,A)=Abnormal LOINC Test Result Flag Range Units Date 60051-6 1Vit D+metab SerPl-mCnc 7 L 30-95 NG/ML 12/16/2018 10:00 Interpretive 1VITAMIN D STATUS VITAMIN D Level Leigh: DEFICIENCY <20 NG/ML INSUFFICIENCY 20-30 NG/ML SUFFICIENCY 31-96 NG/ML POTENTIAL TOXICITY >96 NG/ML Performing Lab Footnotes:[facility] - [id number] - [address] [place] [address] DIALLO [id number] Reference Laboratory Results Order: CCP ANTIBODY IGG [ SO] Specimen Source: Body Site: LOINC Code Test Result Flag Range Units Date 09251-4 1Cyclic citrullinated >250 H 0-19 units 12/16/2018 peptide A 10:00:00 AM Note: Negative <20 Weak positive 20 - 39 Moderate positive 40 - 59 Strong positive >59 Performing Lab Footnotes:[facility] - [address] [facility] [place] [id number] SYEDAJABebe RACHELENDRA1 Social History Code Code System Social History Description Dates Observed Observation [id number] SNOMED CT Current Smoking Unknown if ever Status smoked UNK AdministrativeGender Sex Assigned At Unknown Vital Signs No data in the system Goals Section No data in the system Health Concerns No data in the systemEncounter Diagnosis Date Code Code System Diagnosis Status I10 ICD10 ESSENTIAL PRIMARY HYPERTENSION Active Advance Directives HEALTH CARE PROXY Directive Type Effective Date Adult School Counselor Notes Supporting Document Name Address Phone No Directive 09/17/2016 Not Not Not - LUIS MANUEL NORTON Yes Type 8:36:29 PM Specified Specified Specified [id number]; specified [id number] *RHIO - CONSENT IS YES Directive Type Effective Date Adult School Counselor Notes Supporting Document Name Address Phone No Directive Type 05/04/2015 Not Specified Not Specified Not Specified None No specified 12:53:51 PM Family History No data in the system Functional Status No data in the system Immunizations No data in the system Medical Equipment No data in the system Mental Status No data in the system Assessment and Plan Assessments No data in the systemPlan Of Treatment No data in the systemPending Tests No data in the system Hospital Discharge Instructions No data in the system Reason for Visit Reason for Visit I10 - ESSENTIAL PRIMARY HYPERTENSION
[2019-02-15] MEDS ORDERED: NS 0.9% 1000 ML** 1,000 ML IV ONE ×2 (11:59→13:03)
--- NOTE | 2019-02-15 12:19 | ED ---
Complex/Multi-Sys Presentation - HPI Summary HPI Summary: This patient is a 73 year old M presenting to [facility] accompanied by family with a chief complaint of generalized malaise and fever for the past four days. He additionally reports SOB and body aches. History of esophageal and lung cancer. Patient is mostly fed through pec tube. Patient had liver biopsy last week, results are pending. - History Of Current Complaint Chief Complaint: EDGeneral Time Seen by Provider: 02/15/19 11:50 Hx Obtained From: Patient Onset/Duration: Gradual Onset, Lasting Days Timing: Constant Location: Pain At: - general Alleviating Factor(s): nothing Associated Signs And Symptoms: Positive: SOB, Fever, Other - body aches - Allergies/Home Medications Allergies/Adverse Reactions: Allergies Allergy/AdvReac Type Severity Reaction Status Date / Time No Known Allergies Allergy Verified 02/15/19 12:14 Home Medications: Home Medications Sodium Chloride TAB* 2 gm PEG TUBE TID MDD 6 02/15/19 [History Confirmed ] PMH/Surg Hx/FS Hx/Imm Hx Endocrine/Hematology History: Reports: Hx Thyroid Disease - HYPOTHYROIDISM Denies: Hx Diabetes Cardiovascular History: Reports: Hx Hypertension Respiratory History: Reports: Other Respiratory Problems/Disorders - 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 10/22/2016 EGD WITH PEG TUBE PLACEMENT Hx Anesthesia Reactions: No - LOCAL Infectious Disease History: No Infectious Disease History: Denies: Traveled Outside the [place] in Last 30 Days - Family History Known Family History: Positive: Cardiac Disease - 3x CABG, Hypertension Negative: Diabetes, Other - No FHx of malignant hyperthermia or anesthesia reaction. - Social History Alcohol Use: Rare Hx Substance Use: No Substance Use Type: Reports: None Hx Tobacco Use: Yes Smoking Status (MU): Former Smoker Type: Cigarettes Amount Used/How Often: 6-8 CIGARETTES PER DAY FOR ABOUT 40 YEARS Have You Smoked in the Last Year: Yes Review of Systems Positive: Fever, Fatigue Positive: Shortness Of Breath Positive: Myalgia All Other Systems Reviewed And Are Negative: Yes Physical Exam - Summary Physical Exam Summary: VITAL SIGNS: Reviewed. GENERAL: Patient is a cachetic male with who is lying comfortable in the stretcher. Patient is not in any acute respiratory distress. HEAD AND FACE: No signs of trauma. No ecchymosis, hematomas or skull depressions. No sinus tenderness. EYES: PERRLA, EOMI x 2, No injected conjunctiva, no nystagmus. EARS: Hearing grossly intact. Ear canals and tympanic membranes are within normal limits. MOUTH: Oropharynx within normal limits. NECK: Supple, trachea is midline, no adenopathy, no JVD, no carotid bruit, no c- spine tenderness, neck with full ROM. CHEST: Symmetric, no tenderness at palpation LUNGS: Clear to auscultation bilaterally. No wheezing or crackles.Decreased breath sounds bilaterally. CVS: Regular rate and rhythm, S1 and S2 present, no murmurs or gallops appreciated. ABDOMEN: Soft, non-tender. No signs of distention. No rebound no guarding, and no masses palpated. Bowel sounds are normal. Pec tube in left abdomen EXTREMITIES: FROM in all major joints, no edema, no cyanosis or clubbing. NEURO: Alert and oriented x 3. No acute neurological deficits. Speech is normal and follows commands. SKIN: Dry and warm. Triage Information Reviewed: Yes Vital Signs On Initial Exam: Initial Vitals Temp Pulse Resp BP Pulse Ox 97.3 F 64 20 123/65 99 02/15/19 11:11 02/15/19 11:11 02/15/19 11:11 02/15/19 11:11 02/15/19 11:11 Vital Signs Reviewed: Yes Diagnostics - Vital Signs Vital Signs Temp Pulse Resp BP Pulse Ox 02/15/19 12:01 63 20 98 02/15/19 12:00 70 16 154/73 100 02/15/19 11:58 65 10 99 02/15/19 11:11 97.3 F 64 20 123/65 99 - Laboratory Result Diagrams: 02/15/19 12:30 02/15/19 12:30 Lab Statement: Any lab studies that have been ordered have been reviewed, and results considered in the medical decision making process. - Radiology CXR Radiology Interpretation Completed By: Radiologist Summary of Radiographic Findings: BIBASILAR DENSITIES MOST CONSISTENT WITH SMALL PLEURAL EFFUSIONS AND ADJACENT LOBE. CONSOLIDATION. ED Physician has reviewed this report. - EKG 1200 Cardiac Rate: NL - 63 BPM EKG Rhythm: Sinus Rhythm Summary of EKG Findings: No ST elevations. nml axis. Complex Multi-Symp Course/Dx Assessment/Plan: This patient is a 73 year old M presenting to [facility] accompanied by family with a chief complaint of generalized malaise and fever for the past four days. He additionally reports SOB and body aches. History of esophageal and lung cancer. Patient is mostly fed through pec tube. Patient had liver biopsy last week, results are pending. Blood test results without any significant abnormality except for hemoglobin 8.4 and hematocrit 25, sodium 132 , potassium is 2.9, BUN 27, and phosphatase is 108, troponin 0.06, CRP is 180 and BNP is more than 1300. Chest x-ray impression: Be basilar densities most consistent with a small pleural effusion adjacent to the left consolidation. In the ED course the patient initially was given IV fluids however after the BNP is elevated I stopped the fluids and I started the patient on Lasix. She was also given potassium for the hypokalemia. Patient was also given morphine for pain. I discuss my physical exam, findings and test results with Dr. Vasquez from the hospitalist services and he agrees to admit patient to his services. Patient is hemodynamically stable alert and oriented x 3. - Diagnoses Provider Diagnoses: CHF exacerbation, Pleural effusion - Critical Care Time Critical Care Time: 30-74 min Discharge - Sign-Out/Discharge Documenting (check all that apply): Patient Departure All imaging exams completed and their final reports reviewed: Yes Patient Received Moderate/Deep Sedation with Procedure: No - Discharge Plan Condition: Stable Disposition: ADMITTED TO [facility] - Billing Disposition and Condition Condition: STABLE Disposition: Admitted to [facility] - Attestation Statements Document Initiated by Evonibe: Yes Documenting Scribe: Chikis Monterroso Provider For Whom Palma is Documenting (Include Credential): Sumanth Jensen MD Scribe Attestation: Chikis Spence scribed for Sumanth Jensen MD on 02/15/19 at 1847. Scribe Documentation Reviewed: Yes Provider Attestation: The documentation as recorded by the evonibChikis russer accurately reflects the service I personally performed and the decisions made by me, Sumanth Jensen MD Status of Scribe Document: Viewed
[2019-02-15 12:54] LABS: ABS Eosinophils 0.1 10^3/ul (0-0.6); ABS Lymphocytes 0.1 10^3/ul (1.0-4.8); ABS Monocytes 0.1 10^3/ul (0-0.8); ABS Neutrophils 4.8 10^3/ul (1.5-7.7); Eosinophil % 1.1 %; Hematocrit 25 % (42-52); Hemoglobin 8.4 g/dL (14.0-18.0); Lymphocyte % 1.1 %; Mean Corpuscular HGB Conc 33 g/dL (31-36); Mean Corpuscular Hemoglobin 31 pg (27-31); Mean Corpuscular Volume 93 fL (80-94); Mean Platelet Volume 8.2 fL (7.4-10.4); Platelet Count 204 10^3/uL (150-450); Red Blood Count 2.71 10^6 /uL (4.18-5.48); Red Cell Distribution Width 16 % (10.5-15); White Blood Count 4.9 10^3/uL (3.5-10.8)
[2019-02-15] MEDS ORDERED: Morphine 4 MG/ML VIAL (1 ml) 4 MG/ML VIAL IV ONE (13:03)
[2019-02-15 13:11] LABS: ALT 25 U/L (7-52); AST 37 U/L (13-39); Albumin 2.6 g/dL (3.2-5.2); Albumin/Globulin Ratio 0.7 (1-3); Alkaline Phosphatase 108 U/L (34-104); Anion Gap 10 mmol/L (2-11); BUN/Creatinine Ratio 24.8 (8-20); Blood Urea Nitrogen 27 mg/dL (6-24); C Reactive Protein 180.64 mg/L (<8.01); CO2 Carbon Dioxide 26 mmol/L (22-32); Calcium 8.7 mg/dL (8.6-10.3); Chloride 96 mmol/L (101-111); Creatine Kinase 10 U/L (10-223); EGFR African American 80.5 (>60); EGFR Non-African American 66.5 (>60); Globulin 3.8 g/dL (2-4); Glucose 100 mg/dL (70-100); Potassium 2.9 mmol/L (3.5-5.0); Sodium 132 mmol/L (135-145); Total Protein 6.4 g/dL (6.4-8.9)
[2019-02-15 13:17] LABS: CKMB ng/mL 0.8 ng/mL (0.6-6.3); Troponin I 0.06 ng/mL (<0.04)
[2019-02-15] MEDS ORDERED: Furosemide IV* 10 MG/ML VIAL (40 MG) IV ONE (13:52)
[2019-02-15 16:50] LABS: TSH (Thyroid Stimulating Horm) 5.43 mcIU/mL (0.34-5.60)
[2019-02-15 16:57] LABS: Troponin I 0.08 ng/mL (<0.04)
[2019-02-15 17:01] LABS: Influenza A Molecular NEGATIVE (Negative); Influenza B Molecular NEGATIVE (Negative)
[2019-02-15] MEDS: Potassium Chloride LIQUID* 20 MEQ PACKET PEG TUBE SCH ×2 (17:06→23:20)
[2019-02-15] MEDS: Acetaminophen TAB* 325 MG PO PRN (17:44)
[2019-02-15] MEDS: NS 0.9% 1000 ML** 1,000 ML IV SCH (17:44)
[2019-02-15 17:49] LABS: Erythrocyte Sed Rate 90 mm/Hr (0-19)
[2019-02-15] MEDS: Ergocalciferol CAP* 50000 UNIT PEG TUBE SCH (18:13)
--- NOTE | 2019-02-15 20:46 | HP ---
CC: Dr. George * HISTORY AND PHYSICAL: DATE OF ADMISSION: 02/15/19 PRIMARY CARE PROVIDER: Dr. George. ONCOLOGIST: Dr. Nuñez. CHIEF COMPLAINT: Weakness. HISTORY OF PRESENT ILLNESS: Mr. 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 The patient states that beginning this past Saturday/, he began to feel achy all over. He describes discomfort in his shoulders, arms, back, hips. This past , he thought that he had a fever. He did not take his temperature at home. He described feeling very cold and very hot. He also noted that he was very sweaty. He denies any significant cough with sputum production. No dysuria. No diarrhea. No skin changes. No recent sick contacts, though his states that she had something similar approximately 2 weeks ago. He did undergo a liver biopsy on 02/05/19. The patient has no pain at the biopsy site or abdominal discomfort whatsoever. Over the last couple days, the patient has just been lying in bed. His states that she has never seen him this weak. He has not taken any of his Nepro in by PEG tube over the last couple days. He does try to take in nutrition by mouth; however, this is not always successful. The patient has no other specific complaints at this time other than he feels cold. PAST MEDICAL HISTORY: 1. Squamous cell carcinoma of the palate. 2. Squamous cell carcinoma of the lung. 3. Rheumatoid arthritis. 4. Hypertension. 5. Renal mass. 6. Hypothyroidism. PAST SURGICAL HISTORY: 1. Appendectomy. 2. Partial colectomy related to volvulus. 3. PEG tube insertion. MEDICATIONS: 1. Vitamin D3 50,000 units per tube weekly. 2. Sodium chloride 2 g per tube t.i.d. 3. Ranitidine 300 mg per tube daily. 4. Lisinopril 10 mg per tube daily. 5. Levothyroxine 88 mcg per tube daily. ALLERGIES: No known drug allergies. SOCIAL HISTORY: The patient quit smoking approximately 2 years ago. He previously smoked half-a-pack per day for 40 years. He drinks alcohol on occasion. 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 He is . He has 3 children from his first . His healthcare proxy is his , Rachele. REVIEW OF SYSTEMS: A complete 11-system review of systems is obtained. Pertinent positives and negatives are as HPI. In addition, the patient does state that he has chronic lower extremity edema. He states that he feels discouraged about his current situation. PHYSICAL EXAMINATION GENERAL: The patient is a chronically ill-appearing, elderly male seen lying on the stretcher, in no acute distress. VITAL SIGNS: Blood pressure 127/75, pulse 70, respirations 19, temp 97.3, O2 sat 91% on 2 L. HEENT: Pupils are equal and round. Extraocular muscles are intact. Oropharynx is clear. Oral mucosa is very dry. PULMONARY: Lungs are clear to auscultation bilaterally. CARDIAC: Normal S1, S2. Heart rate is regular. There are no murmurs. There is 1+ bilateral ankle and foot edema. ABDOMEN: Bowel sounds are present. Abdomen is soft, nontender, nondistended. MUSCULOSKELETAL: There is no cyanosis or clubbing of the digits. There is full active range of motion of all 4 extremities. NEURO: Cranial nerves II through XII are grossly intact. Sensation is intact to light touch throughout. Strength is 5/5 and symmetric to both upper and lower extremities bilaterally. The patient does have slight dysarthria that his states has been present since his treatment for his head and neck cancer. PSYCH: The patient is alert. He is oriented x3. He seems discouraged. SKIN: Warm and dry. There are no rashes. ASSESSMENT AND PLAN: Mr. Rajan is a 73-year-old male with a history of squamous cell carcinoma of the head and neck, squamous cell carcinoma of the lung with probable metastases to the liver, renal mass, rheumatoid arthritis and hypertension, who presents to the emergency room with complaints of weakness and generalized feeling of malaise as well as fever mid last week. 1. Generalized weakness/malaise/fever. The patient did not clearly demonstrate a fever at home as he did not take his temperature. Here, he is afebrile. He does not have an elevated white blood cell count. The patient's overall picture does appear to be one of a possible viral illness given his symptoms. He does have, however, significant amount of achiness in his shoulders, back, and hips. I will send off a flu swab. Of note, the patient's CRP is markedly elevated at 180.64. When previously checked on 01/11/19, it was 11.03. Around that time, the patient had been treated with prednisone due to complaints of achiness diffusely throughout his body. The patient's symptoms dramatically improved in the setting of prednisone use. The patient saw Vipul Johns NP, on 01/08/19, at which time, polymyalgia rheumatica was felt to be in the differential; however, rapid resolution on a short course of prednisone was felt to be unusual. It was recommended by her that if his symptoms return, treatment with prednisone and/or hydroxychloroquine could be initiated as it was also felt that a rheumatoid arthritis flare could be causing his symptoms. I am going to hold off on initiating prednisone or hydroxychloroquine at this point; however, this could be continued if no clear source is found for the cause of the patient's symptoms. 2. Elevated troponin. The patient has a mildly elevated troponin of 0.06. He has never had a troponin drawn before in our facility. I will send off a repeat troponin now. The patient denies any specific chest pain. I will order a transthoracic echocardiogram given the elevated troponin and lower extremity edema. The patient's BNP is also noted to be markedly elevated at greater than 1300, though clinically, the patient is not in heart failure. 3. Hypokalemia. The patient's potassium is low at 2.9. This is likely from poor oral intake. The patient will be given potassium chloride 40 mEq per tube q.4 hours x2 doses. A repeat potassium level will be obtained tomorrow. 4. Anemia. The patient's hemoglobin is essentially unchanged from early January. His hemoglobin, however, has fluctuated between approximately 8 to 10 over the last 1 year. Followup CBC will be obtained tomorrow. 5. Hyponatremia. 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 He is on salt tablets 3 times daily and this will continue. 6. Hypothyroidism. The patient's last TSH was obtained last year. We will add on a TSH to the labs drawn in the emergency room. 7. Head and neck cancer, lung cancer, renal mass, newly identified liver metastases. Management of this is as per Oncology. 8. Rheumatoid arthritis. The patient was felt to be in remission with this; however, as above, it is possible the achiness that he is describing could be a flare. Hydroxychloroquine could be considered to be added. 9. DVT prophylaxis. According to the Adult Thrombosis Prophylaxis Risk Factor Assessment Guide, the patient has a total risk factor score of 4, making him high risk. Lovenox 40 mg subcutaneous daily will be initiated for DVT prophylaxis. 10. Code status is full. TIME SPENT: Sixty-five minutes was spent admitting this patient. [id number]/[facility] #: [id number] SERGIO
[2019-02-15 21:18] LABS: Urine Appearance Cloudy; Urine Bacteria Absent (Absent); Urine Bilirubin Negative (Negative); Urine Blood 3+ (Negative); Urine Color Yellow; Urine Glucose Negative (Negative); Urine Ketones Negative (Negative); Urine Nitrite Negative (Negative); Urine Protein Negative (Negative); Urine Red Blood Cell 3+(>10/hpf) (Absent); Urine Specific Gravity 1.009 (1.010-1.030); Urine Squamous Epithelial Cell Present (Absent); Urine Urobilinogen Negative (Negative); Urine White Blood Cell 1+(6-10/hpf) (Absent)
[2019-02-15] MEDS: Enoxaparin(*) 40 MG/0.4 ML SYR SUBCUT SCH (22:11)
[2019-02-15] MEDS: Sodium Chloride TAB* 1 GM PEG TUBE SCH (22:12)
[2019-02-15] MEDS ORDERED: Potassium Chloride LIQUID* 20 MEQ PACKET PO ONE (23:00)
[2019-02-15] MEDS ORDERED: Potassium Chloride* LIQUID 20 MEQ/15 ML UDC PO ONE (23:00)
[2019-02-15] MEDS: cefTRIAXone(*) 1 GM in NS 0.9% 50 ML* 50 ML IVPB SCH (23:12)
[2019-02-16] MEDS: Acetaminophen TAB* 325 MG PO PRN ×4 (02:15→20:45)
[2019-02-16 05:51] LABS: ABS Eosinophils 0.6 10^3/ul (0-0.6); ABS Lymphocytes 0.1 10^3/ul (1.0-4.8); ABS Monocytes 0.2 10^3/ul (0-0.8); ABS Neutrophils 6.8 10^3/ul (1.5-7.7); Eosinophil % 8.2 %; Hematocrit 22 % (42-52); Hemoglobin 7.3 g/dL (14.0-18.0); Lymphocyte % 1.5 %; Mean Corpuscular HGB Conc 33 g/dL (31-36); Mean Corpuscular Hemoglobin 31 pg (27-31); Mean Corpuscular Volume 93 fL (80-94); Platelet Count 116 10^3/uL (150-450); Red Blood Count 2.37 10^6 /uL (4.18-5.48); Red Cell Distribution Width 16 % (10.5-15); White Blood Count 7.8 10^3/uL (3.5-10.8)
[2019-02-16] MEDS: Levothyroxine TAB* 88 MCG TAB PEG TUBE SCH (05:59)
[2019-02-16 06:12] LABS: Anion Gap 9 mmol/L (2-11); BUN/Creatinine Ratio 24.6 (8-20); Blood Urea Nitrogen 33 mg/dL (6-24); CO2 Carbon Dioxide 24 mmol/L (22-32); Calcium 8.1 mg/dL (8.6-10.3); Chloride 102 mmol/L (101-111); EGFR African American 63.4 (>60); EGFR Non-African American 52.4 (>60); Glucose 95 mg/dL (70-100); Potassium 3.9 mmol/L (3.5-5.0); Sodium 135 mmol/L (135-145)
[2019-02-16] MEDS: NS 0.9% 1000 ML** 1,000 ML IV SCH (08:11)
[2019-02-16] MEDS: Sodium Chloride TAB* 1 GM PEG TUBE SCH ×3 (08:12→20:44)
[2019-02-16] MEDS: Famotidine SUSP ORALSYR 8 MG/ML PEG TUBE SCH (08:13)
[2019-02-16] MEDS: Lisinopril TAB* 10 MG PEG TUBE SCH (08:13)
--- NOTE | 2019-02-16 09:44 | PN ---
Progress Note - Progress Note Date of Service: 02/16/19 SOAP: Subjective: []Presented yesterday to ER feeling very weak, fatigued, with intermittent fevers. Work-up with 4/4 blood cultures positive for Group B Strep. Rising troponin with markedly elevated BNP. Echo pending. Cont.'s feel weak. Uncomfortable, but no specific complaints. Very dry mouth. Medications: Acetaminophen (Tylenol Tab*) 650 mg PO Q4H PRN PRN Reason: PAIN Last Admin: 02/16/19 08:13 Dose: 650 mg Enoxaparin Sodium (Lovenox(*)) 40 mg SUBCUT Q24H [facility] Last Admin: 02/15/19 22:11 Dose: 40 mg Ergocalciferol (Drisdol Cap*) 50,000 unit PEG TUBE Akers@1700 [facility] Last Admin: 02/15/19 18:13 Dose: Not Given Famotidine (Pepcid Susp 8mg/Ml) 40 mg PEG TUBE DAILY [facility] Last Admin: 02/16/19 08:13 Dose: 40 mg Sodium Chloride (Ns 0.9% 1000 Ml) 1,000 mls @ 75 mls/hr IV PER RATE [facility] Last Admin: 02/16/19 08:11 Dose: 75 mls/hr Ceftriaxone Sodium 1 gm/ (Sodium Chloride) 50 mls @ 200 mls/hr IVPB Q24H [facility] Last Admin: 02/15/19 23:12 Dose: 200 mls/hr Levothyroxine Sodium (Synthroid Tab*) 88 mcg PEG TUBE DAILY@0600 [facility] Last Admin: 02/16/19 05:59 Dose: 88 mcg Lisinopril (Prinivil Tab*) 10 mg PEG TUBE QAM [facility] Last Admin: 02/16/19 08:13 Dose: 10 mg Sodium Chloride (Sodium Chloride Tab*) 2 gm PEG TUBE TID [facility] Last Admin: 02/16/19 08:12 Dose: 2 gm Objective: [] Vital Signs Temp Pulse Resp BP Pulse Ox 97.7 F 76 24 121/72 99 02/16/19 08:04 02/16/19 08:04 02/16/19 08:04 02/16/19 08:04 02/16/19 08:04 A&Ox3, EOMI, PERRLA HRR, S1S2, distant heart sounds, tele SR, 12-lead without obvious infarct LS clear +BS, abd. soft and non-tender PEG benign +PP=bilat., +2 edema @ ankles Laboratory Results - last 24 hr 02/15/19 02/15/19 02/15/19 12:30 12:30 12:30 WBC 4.9 RBC 2.71 L Hgb 8.4 L Hct 25 L MCV 93 MCH 31 MCHC 33 RDW 16 H Plt Count 204 MPV 8.2 Neut % (Auto) 96.4 Lymph % (Auto) 1.1 [place] % (Auto) 1.3 Eos % (Auto) 1.1 Baso % (Auto) 0.1 Absolute Neuts (auto) 4.8 Absolute Lymphs (auto) 0.1 L Absolute Monos (auto) 0.1 Absolute Eos (auto) 0.1 Absolute Basos (auto) 0.0 Absolute Nucleated RBC 0.0 Nucleated RBC % 0.0 ESR 90 H Sodium 132 L Potassium 2.9 L Chloride 96 L Carbon Dioxide 26 Anion Gap 10 BUN 27 H Creatinine 1.09 Est GFR ( Amer) 80.5 Est GFR (Non-Af Amer) 66.5 BUN/Creatinine Ratio 24.8 H Glucose 100 Lactic Acid 1.5 Calcium 8.7 Total Bilirubin 0.40 AST 37 ALT 25 Alkaline Phosphatase 108 H Total Creatine Kinase 10 CK-MB (CK-2) 0.8 Troponin I 0.06 H* C-Reactive Protein 180.64 H B-Natriuretic Peptide Total Protein 6.4 Albumin 2.6 L Globulin 3.8 Albumin/Globulin Ratio 0.7 L TSH 5.43 Urine Color Urine Appearance Urine pH Ur Specific [place] Urine Protein Urine Ketones Urine Blood Urine Nitrate Urine Bilirubin Urine Urobilinogen Ur Leukocyte Esterase Urine WBC (Auto) Urine RBC (Auto) Ur Squamous Epith Cells Urine Bacteria Hyaline Casts Urine Glucose Influenza A (Rapid) Influenza B (Rapid) 02/15/19 02/15/19 02/15/19 12:30 16:19 16:37 WBC RBC Hgb Hct MCV MCH MCHC RDW Plt Count MPV Neut % (Auto) Lymph % (Auto) [place] % (Auto) Eos % (Auto) Baso % (Auto) Absolute Neuts (auto) Absolute Lymphs (auto) Absolute Monos (auto) Absolute Eos (auto) Absolute Basos (auto) Absolute Nucleated RBC Nucleated RBC % ESR Sodium Potassium Chloride Carbon Dioxide Anion Gap BUN Creatinine Est GFR ( Amer) Est GFR (Non-Af Amer) BUN/Creatinine Ratio Glucose Lactic Acid Calcium Total Bilirubin AST ALT Alkaline Phosphatase Total Creatine Kinase CK-MB (CK-2) Troponin I 0.08 H* C-Reactive Protein B-Natriuretic Peptide > 1300 H Total Protein Albumin Globulin Albumin/Globulin Ratio TSH Urine Color Urine Appearance Urine pH Ur Specific [place] Urine Protein Urine Ketones Urine Blood Urine Nitrate Urine Bilirubin Urine Urobilinogen Ur Leukocyte Esterase Urine WBC (Auto) Urine RBC (Auto) Ur Squamous Epith Cells Urine Bacteria Hyaline Casts Urine Glucose Influenza A (Rapid) Negative Influenza B (Rapid) Negative 02/15/19 02/16/19 02/16/19 20:06 05:23 05:23 WBC 7.8 RBC 2.37 L Hgb 7.3 L Hct 22 L MCV 93 MCH 31 MCHC 33 RDW 16 H Plt Count 116 L MPV 9.0 Neut % (Auto) 87.2 Lymph % (Auto) 1.5 [place] % (Auto) 3.0 Eos % (Auto) 8.2 Baso % (Auto) 0.1 Absolute Neuts (auto) 6.8 Absolute Lymphs (auto) 0.1 L Absolute Monos (auto) 0.2 Absolute Eos (auto) 0.6 Absolute Basos (auto) 0.0 Absolute Nucleated RBC 0.0 Nucleated RBC % 0.0 ESR Sodium 135 Potassium 3.9 Chloride 102 Carbon Dioxide 24 Anion Gap 9 BUN 33 H Creatinine 1.34 H Est GFR ( Amer) 63.4 Est GFR (Non-Af Amer) 52.4 BUN/Creatinine Ratio 24.6 H Glucose 95 Lactic Acid Calcium 8.1 L Total Bilirubin AST ALT Alkaline Phosphatase Total Creatine Kinase CK-MB (CK-2) Troponin I C-Reactive Protein B-Natriuretic Peptide Total Protein Albumin Globulin Albumin/Globulin Ratio TSH Urine Color Yellow Urine Appearance Cloudy Urine pH 5.0 Ur Specific [place] 1.009 L Urine Protein Negative Urine Ketones Negative Urine Blood 3+ A Urine Nitrate Negative Urine Bilirubin Negative Urine Urobilinogen Negative Ur Leukocyte Esterase Negative Urine WBC (Auto) 1+(6-10/hpf) A Urine RBC (Auto) 3+(>10/hpf) A Ur Squamous Epith Cells Present A Urine Bacteria Absent Hyaline Casts Present A Urine Glucose Negative Influenza A (Rapid) Influenza B (Rapid) Assessment: []73 yo old male well known to oncology due to his unfortunate diagnosis of head and neck cancer, Squamous Cell Carcinoma P16+ first diagnosed 09/2016 with right hilar mass recurrence (biopsy proven) s/p SBRT 12/2017 and now with new liver lesion, admitted with Group B Strep bacteremia. Plan: []1. Bacteremia: concerning for endocarditis - no prosthesis or implants - cont. Cetriaxone for now - check transthoracic echo as ordered, may require SUDHAKAR - cont. to trend troponin - cont. slow fluids despite elevated BNP for now - consult cardiology and infectious disease
[2019-02-16 09:48] LABS: Troponin I 1.39 ng/mL (<0.04)
[2019-02-16 11:44] LABS: Troponin I 1.35 ng/mL (<0.04)
--- NOTE | 2019-02-16 13:40 | CONS ---
CONSULTATION REPORT: DATE OF ADMISSION: 02/15/19 DATE OF CONSULT: 02/16/19 PRIMARY CARE PROVIDER: Dr. Claudia George. ONCOLOGIST: Dr. Paco Nuñez. PROVIDER REQUESTING CONSULTATION: Nathalie Higginbotham NP CONSULTING SERVICE: Infectious Disease. PROVIDER: Jax Kinney NP My attending provider: Dr. Nando Bueno * (dictated by Jax Kinney NP) REASON FOR CONSULT: Group B strep bacteremia. IMPRESSION: Group B Streptococcus bacteremia. He has 4/4 blood culture bottles positive. He is afebrile with no leukocytosis. I suspect this likely represents infective endocarditis with his bumped troponins. He has a transthoracic echocardiogram ordered. The last abdominal imaging that he had in early January showed a splenic lesion, that could represent an abscess. He has no artificial joints or prosthetics. The only foreign object that he endorses is a PEG tube. None of his joints are concerning for septic arthritis at this time. RECOMMENDATIONS: Recommend continuing ceftriaxone for now. He should have a transthoracic echocardiogram. If this is negative, he should have a transesophageal echocardiogram. If both of the echos are negative for infective endocarditis, he should have an abdomen and pelvis CT scan to evaluate for abdominal abscesses. HISTORY OF PRESENT ILLNESS: Mr. Rajan is a 73-year-old male with a past medical history significant for squamous cell carcinoma of the palate and lung, liver metastasis, rheumatoid arthritis, hypertension, renal mass, hypothyroidism , who presented to the emergency room with complaints of weakness and fever. He reports started Saturday, of last week with aching all over with discomfort in his shoulders, arms, back, and hip. Due to his symptoms, he presented to the emergency room for further evaluation. While in the emergency room, he was noted to have a generalized weakness. He was afebrile with no leukocytosis. Influenza A and B was negative. His CRP was markedly elevated at 180.64, previously in December was 11. He was also noted to have an elevated troponin of 0.06 and anemia near his baseline. Noted to have hyponatremia, which is chronic for him due to SIADH and he was referred to the hospitalist service for admission. While in the hospital, his initial blood cultures drawn at presentation came back with 4/4 bottles positive for group B strep. He has been afebrile here. His troponin has continued to elevate. Urinalysis significant for blood 3+, wbc 's 1+, rbc's 3+, squamous epithelial cells present, bacteria absent. Denies fevers, chills. He reports occasional pain in his right thumb. He denies muscle pain, rash, diarrhea or constipation, urinary symptoms such as urgency, frequency, dysuria. He denies recent travel. He reports a nonproductive cough at baseline, which has not changed. PAST MEDICAL HISTORY: 1. Squamous cell cancer of the palate. 2. Squamous cell cancer of the lung. 3. 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 4. Hypertension. 5. Rheumatoid arthritis. 6. History of renal mass. 7. Hypothyroidism. 8. Hyponatremia secondary to SIADH. PAST SURGICAL HISTORY: 1. Status post appendectomy. 2. Status post partial colectomy secondary to volvulus. 3. Status post PEG tube insertion. HOME MEDICATIONS: 1. Vitamin D3 50,000 units via PEG tube weekly. 2. Sodium chloride tablet 2 g via PEG tube 3 times daily. 3. Ranitidine 300 mg via PEG tube daily. 4. Nepro 3 bottles via PEG tube daily. 5. Lisinopril 10 mg via PEG tube daily. 6. Levothyroxine 88 mcg via PEG tube daily. Hospital medications: 1. Acetaminophen 650 mg via PEG tube every 4 hours as needed for pain. 2. Ceftriaxone 1 g IV every 24 hours. 3. Lovenox 40 mg subcu daily. 4. Ergocalciferol 50,000 units via PEG tube on Saturday. 5. Famotidine 40 mg via PEG tube daily. 6. Levothyroxine 88 mcg via PEG tube daily. 7. Lisinopril 10 mg via PEG tube daily. 8. Sodium chloride 75 mL an hour. 9. Sodium chloride 2 g via PEG tube 3 times daily. ALLERGIES: No known drug allergies. FAMILY HISTORY: Denies family history of recurrent infections, coronary artery disease, diabetes. Father with a history of lymphoma. Mother passed at age 89 from natural causes. SOCIAL HISTORY: Occasionally drinks alcohol. He is a former smoker, quitting 2 years ago. Prior to that, he had a half a pack a day, 40-year smoking history. Denies recreational drug use. REVIEW OF SYSTEMS: I performed a 10-point review of systems. All the pertinent positives and negatives are mentioned in the history of present illness. The remaining review of systems are negative. PHYSICAL EXAM: Vital Signs: Temperature 97.7, heart rate 76, respiratory rate 24, O2 sat 99% on 2 L via nasal cannula, blood pressure 121/72. General Appearance: Alert, pleasant, appears to be in no acute distress. Frail appearing. Head: Normocephalic, atraumatic. ENT: Pupils are equal and reactive to light. Extraocular movements are intact. Neck: Supple. No lymphadenopathy. Neurologic: Alert and oriented. Cranial nerves II through XII are grossly intact. Cardiovascular: Heart rate is regular. No murmurs. He has a trace bilateral lower extremity edema. Respiratory: No accessory muscle use. Lungs are clear to auscultation. Abdomen: Bowel sounds present. Abdomen is soft, nontender, nondistended. Musculoskeletal: No clubbing or cyanosis. Equal strength in all extremities. He has no joint warmth, swelling , or erythema. He does have some crepitus in both knees with movement. He has full range of motion of all extremities, joints including wrists, elbows, shoulders, ankles, knees, and hips. No tenderness with palpitation of the neck or spine. Psychological: Calm and cooperative. Skin: No rashes or abnormalities seen. DIAGNOSTIC STUDIES/LAB DATA: Sodium 135, potassium 3.9, chloride 102, CO2 24, BUN 33, creatinine 1.34. Glucose 95. White blood cell count 7.8, hemoglobin 7.3, hematocrit 22, platelet count 116. Blood cultures with strep Agala group B 4/. Urinalysis with 3+ blood, wbc's 1+, rbc's 3+, squamous epithelial cells present, hyaline cast present, bacteria negative, nitrites negative. CRP 180.64. ESR 90. Influenza A and B negative. Please see impression and recommendations outlined above. Thank you for asking us to see Mr. Rajan in consultation. Case has been reviewed with my attending, Dr. Nando Bueno, who agrees with the plan of care. Reviewed by JAX KINNEY, MAURICE-Jeannie 02/17/19 [id number]/[facility] #: [id number] MTDD
[2019-02-16 14:27] LABS: Troponin I 1.23 ng/mL (<0.04)
--- NOTE | 2019-02-16 15:12 | ECHO ---
*[facility]* [place] [address] Fax #: [phone] Transthoracic Echocardiogram Patient: Ross Rajan Height: 71 in / F 180.3 cm : 1945 Weight: 137.7 lb / Study Date: 02/16/2019 62.6 kg Age: 73 BP: 121 / 73 Gender: M BMI/BSA: 19.2 kg/m^2 HR: 72 bpm / 1.8 m^2 *Patent Engineer: * Lamar Westbrook [facility] *Referring Physician: * Tequila VasquezReading Physician: * Dileep Orourke MD Indications: Edema. Bacteremia. History: Risk factors: Former tobacco use. Hypertension. Renal mass, rheumatoid arthritis, lung cancer, PEG tube Conclusions Summary: 1. Technical notes: Echo-dense mass on anterior leaflet of mitral valve measuring 1.2 cmx 1.7 cm in PLAX and 1.3 cm x 0.7 cm in A4C. 2. Left ventricle: There is mild to moderate concentric hypertrophy. Systolic function is at the lower limits of normal by visual assessment. The estimated ejection fraction is 50-55%. Wall motion is normal; there are no regional wall motion abnormalities. 3. Right ventricle: Systolic function is low normal. 4. Mitral valve: The annulus is mildly calcified. The leaflets are moderately thickened. There is a vegetation. There is moderate regurgitation. 5. Aortic valve: The valve is trileaflet. The leaflets are moderately thickened. There is trace to mild regurgitation. 6. Tricuspid valve: There is no evidence of a vegetation. There is moderate-severe regurgitation. 7. Pericardium, extracardiac: There is no pericardial effusion. 8. Pulmonary arteries: Systolic pressure is severely increased. Est PASP 65 mmHg Study data: Transthoracic echocardiogram. Procedure: Transthoracic echocardiography was performed. Image quality was fair. The study was technically limited due to restricted patient mobility. Complete 2D, spectral Doppler, and color flow Doppler. Location: Bedside. Patient status: Inpatient. Patient room number: 436. Rhythm: Normal sinus rhythm. Findings Left ventricle: The cavity size is normal. There is mild to moderate concentric hypertrophy. Systolic function is at the lower limits of normal by visual assessment. The estimated ejection fraction is 50-55%. Wall motion is normal; there are no regional wall motion abnormalities. There is no consistent Doppler evidence of clinically significant diastolic dysfunction. Right ventricle: The cavity size is at the upper limits of normal. The moderator band is in a normal position. Systolic function is low normal. Left atrium: The atrium is severely dilated. Right atrium: The atrium is mildly dilated. Mitral valve: The annulus is mildly calcified. The leaflets are moderately thickened. There is a vegetation. The findings are consistent with mild stenosis. There is moderate regurgitation. Aortic valve: The valve is trileaflet. The leaflets are moderately thickened. Thickening, consistent with sclerosis. There is no evidence of stenosis. There is trace to mild regurgitation. Tricuspid valve: The leaflets are normal thickness. There is no evidence of a vegetation. There is no evidence of stenosis. There is moderate-severe regurgitation. Pulmonic valve: The leaflets are normal thickness. There is no evidence of a vegetation. There is no evidence of stenosis. There is trivial regurgitation. Aorta: Ascending aorta: The ascending aorta is mildly dilated. Aortic arch: The aortic arch is appears normal. The aortic root is not dilated. Pericardium: There is no pericardial effusion. Pulmonary arteries: The main pulmonary artery is normal-sized. Systolic pressure is severely increased. Est PASP 65 mmHg Systemic veins: Inferior vena cava: The vessel is dilated. The respirophasic diameter changes are in the normal range (>= 50%). Measurements Left ventricle Value Ref Aortic valve continued Value Ref VIGNESH, LAX 4.7 cm 4.2 - 5.8 Peak grad, S 9.0 mm Hg ----- ESD, LAX 3.2 cm 2.5 - 4.0 LVOT/AV, VTI ratio 0.47 ----- FS, LAX 33 % 25 - 43 SHAHZAD, VTI 1.47 cm^2 ----- PW, ED, LAX (H) 1.3 cm 0.6 - 1.0 SHAHZAD, Vmax 1.32 cm^2 ----- FS 33 % 25 - 43 PW, ED (H) 1.3 cm 0.6 - 1.0 Mitral valve Value Ref E', lat muriel, TDI (L) 5.4 cm/sec >=10.0 Peak E 1.51 m/sec - ---- E/e', lat muriel, 28 Peak A 0.68 m/sec ---- - TDI Decel time 211 ms ----- E', med muriel, TDI (L) 6.2 cm/sec >=7.0 PHT 122 ms - ---- E/e', med muriel, 24 Mean grad, D 3.0 mm Hg ---- - TDI Peak grad, D 11.0 mm Hg ----- E', avg, TDI 5.8 cm/sec Peak E/A ratio 2.2 ---- - E/e', avg, TDI (H) 26 <=14 MVA, PHT 1.8 cm^2 - ---- MR alias velocity 0.42 m/sec ----- LVOT Value Ref MR PISA radius 0.8 cm ----- Diam, S 2.00 cm Max MR v 5 m/sec ----- Area 3.1 cm^2 Regurg VTI 179.0 cm ----- Peak chikis, S 0.63 m/sec ERO, PISA 0.34 cm^2 ----- VTI, S 15.0 cm MR vol, PISA 168 ml ----- Mean grad, S 1 mm Hg SV 46 ml Pulmonic valve Value Ref SV/bsa 26 ml/m^2 Peak v, S 1.64 m/sec ----- Peak grad, S 11.0 mm Hg ----- Ventricular septum Value Ref IVS, ED (H) 1.4 cm 0.6 - 1.0 Tricuspid valve Value Ref TR peak v (H) 3.8 m/sec <=2.8 Right ventricle Value Ref Peak RV-RA grad, S 58 mm Hg ----- VIGNESH, LAX 3.1 cm Max TR chikis 3.8 m/sec ----- VIGNESH minor ax, A4C (H) 4.1 cm 1.9 - 3.5 mid Aortic root Value Ref Pressure, S 66 mm Hg Root diam 3.4 cm <4.0 Left atrium Value Ref Ascending aorta Value Ref AP dim, ES (H) 4.60 cm 3.00 - AAo AP diam, S 3.7 cm ----- 4.00 ML dim, A4C 4.3 cm Aortic arch Value Ref SI dim, A4C 6.2 cm Arch diam 3.2 cm ----- Vol/bsa, ES, 1-p (H) 43 ml/m^2 12 - 37 A4C Decending aorta Value Ref Vol/bsa, ES, A/L (H) 56 ml/m^2 16 - 34 Carlos peak chikis 0.38 m/sec ----- Right atrium Value Ref Pulmonary artery Value Ref SI dim, ES (H) 5.6 cm 3.4 - 5.3 Pressure, S 55.0 mm Hg ----- ML dim, ES, A4C (H) 4.8 cm 2.6 - 4.4 SI dim, ES, A4C (H) 5.6 cm 3.4 - 5.3 Inferior vena cava Value Ref Estimated RAP 8 mm Hg Diam 2.4 cm ----- Aortic valve Value Ref Muriel diam, ED 2.4 cm Peak v, S 1.49 m/sec VTI, S 32.0 cm Mean grad, S 4.0 mm Hg Legend: (L) and (H) ubaldo values outside specified reference range. Prepared and electronically signed by Dileep Orourke MD 02/16/2019 15:10
[2019-02-16 17:13] LABS: Troponin I 1.08 ng/mL (<0.04)
[2019-02-16 20:01] LABS: Troponin I 1.01 ng/mL (<0.04)
[2019-02-16] MEDS: Enoxaparin(*) 40 MG/0.4 ML SYR SUBCUT SCH (20:44)
[2019-02-16] MEDS: cefTRIAXone(*) 1 GM in NS 0.9% 50 ML* 50 ML IVPB SCH (21:19)
[2019-02-16 22:58] LABS: Troponin I 0.97 ng/mL (<0.04)
[2019-02-17] MEDS: NS 0.9% 1000 ML** 1,000 ML IV SCH ×2 (00:46→14:50)
[2019-02-17] MEDS: Levothyroxine TAB* 88 MCG TAB PEG TUBE SCH (05:14)
[2019-02-17 05:48] LABS: Hematocrit 26 % (42-52); Hemoglobin 8.6 g/dL (14.0-18.0); Mean Corpuscular HGB Conc 33 g/dL (31-36); Mean Corpuscular Hemoglobin 31 pg (27-31); Mean Corpuscular Volume 93 fL (80-94); Mean Platelet Volume 9.7 fL (7.4-10.4); Platelet Count 114 10^3/uL (150-450); Red Blood Count 2.78 10^6 /uL (4.18-5.48); Red Cell Distribution Width 16 % (10.5-15); White Blood Count 9.2 10^3/uL (3.5-10.8)
[2019-02-17 05:52] LABS: Albumin 2.5 g/dL (3.2-5.2); Albumin/Globulin Ratio 0.7 (1-3); BUN/Creatinine Ratio 29.7 (8-20); Calcium 8.3 mg/dL (8.6-10.3); EGFR African American 46.6 (>60); EGFR Non-African American 38.5 (>60); Globulin 3.5 g/dL (2-4); Potassium 3.9 mmol/L (3.5-5.0); Total Bilirubin 0.4 mg/dL (0.2-1.0)
[2019-02-17 05:56] LABS: ABS Eosinophils 0.2 10^3/ul (0-0.6); ABS Lymphocytes 0.3 10^3/ul (1.0-4.8); ABS Monocytes 0.3 10^3/ul (0-0.8); ABS Neutrophils 8.3 10^3/ul (1.5-7.7); Eosinophil % 2.4 %; Lymphocyte % 3.4 %; Nucleated Red Blood Cells % 0.1
[2019-02-17] MEDS: Sodium Chloride TAB* 1 GM PEG TUBE SCH ×3 (09:00→19:20)
[2019-02-17] MEDS: Lisinopril TAB* 10 MG PEG TUBE SCH (09:01)
[2019-02-17] MEDS: Famotidine SUSP ORALSYR 8 MG/ML PEG TUBE SCH (09:01)
--- NOTE | 2019-02-17 14:50 | PN ---
Progress Note - Progress Note Date of Service: 02/17/19 SOAP: Subjective: CC: endocarditis HPI: 73 yo man with lung cancer and liver metastases w recent biopsy now with Grp B Strep Mitral valve endocarditis by TTE. Has had a month of malaise, fevers, sweats and weight loss. Has hx palate cancer and PEG tube feeds. No other prosthetic material present. His says he had not been making sense but that is getting better. Objective: Vital Signs Temp 36.6 C 02/17/19 12:21 Pulse 67 02/17/19 12:21 Resp 18 02/17/19 12:21 BP 137/77 02/17/19 12:21 Pulse Ox 99 02/17/19 12:21 Intake & Output 02/16/19 02/17/19 02/17/19 18:59 06:59 18:59 Intake Total 631 1559 0 Output Total 50 0 Balance 581 1559 0 Intake: IV Fluids 406 953 NS (0.9%) 406 953 IVPB 66 ABX - CEFTRIAXONE 66 TPN/PPN 270 Oral 0 0 0 Tube Feeding 225 250 Tube Feeding Flush Amount 20 Output: Urine 50 0 Other: # Voids 1 Gen:awake, no distress Neuro: moves all extremities HEENT: no thrush Heart:RRR no murmur Lungs:CTA BL Abd:+ BS NTND soft Skin: no rash MSK: No spine tenderness Laboratory Results - last 24 hr 02/16/19 02/16/19 02/16/19 16:39 19:32 22:27 WBC RBC Hgb Hct MCV MCH MCHC RDW Plt Count MPV Neut % (Auto) Lymph % (Auto) [place] % (Auto) Eos % (Auto) Baso % (Auto) Absolute Neuts (auto) Absolute Lymphs (auto) Absolute Monos (auto) Absolute Eos (auto) Absolute Basos (auto) Absolute Nucleated RBC Nucleated RBC % Sodium Potassium Chloride Carbon Dioxide Anion Gap BUN Creatinine Est GFR ( Amer) Est GFR (Non-Af Amer) BUN/Creatinine Ratio Glucose Calcium Total Bilirubin AST ALT Alkaline Phosphatase Troponin I 1.08 H* 1.01 H* 0.97 H* Total Protein Albumin Globulin Albumin/Globulin Ratio 02/17/19 02/17/19 05:24 05:24 WBC 9.2 RBC 2.78 L Hgb 8.6 L Hct 26 L MCV 93 MCH 31 MCHC 33 RDW 16 H Plt Count 114 L MPV 9.7 Neut % (Auto) 90.6 Lymph % (Auto) 3.4 [place] % (Auto) 3.5 Eos % (Auto) 2.4 Baso % (Auto) 0.1 Absolute Neuts (auto) 8.3 H Absolute Lymphs (auto) 0.3 L Absolute Monos (auto) 0.3 Absolute Eos (auto) 0.2 Absolute Basos (auto) 0.0 Absolute Nucleated RBC 0.0 Nucleated RBC % 0.1 Sodium 136 Potassium 3.9 Chloride 106 Carbon Dioxide 21 L Anion Gap 9 BUN 52 H Creatinine 1.75 H Est GFR ( Amer) 46.6 Est GFR (Non-Af Amer) 38.5 BUN/Creatinine Ratio 29.7 H Glucose 114 H Calcium 8.3 L Total Bilirubin 0.40 AST 433 H ALT 311 H Alkaline Phosphatase 114 H Troponin I Total Protein 6.0 L Albumin 2.5 L Globulin 3.5 Albumin/Globulin Ratio 0.7 L Microbiology 02/15/19 12:41 Aerobic Blood Culture - Final Blood Venous Strep Agalactiae - (Group B) Anaerobic Blood Culture - Final Strep Agalactiae - (Group B) 02/15/19 12:30 Aerobic Blood Culture - Final Blood Venous Strep Agalactiae - (Group B) Anaerobic Blood Culture - Final Strep Agalactiae - (Group B) 02/15/19 20:06 Urine Culture - Final Urine No Growth (<1,000 CFU/mL) Assessment: 1. MV GBS infective endocarditis; large vegetation may incr risk of medical mgmt failure but he is not a surgical candidate 2. Lung cancer w liver metastases 3. hx laryngeal cancer Plan: 1. continue ceftriaxone 1 gm IV daily, recheck BC (ordered), PICC when negative. 6 weeks ceftriaxone from time of negative cultures. Weekly cbc, cmp , crp. FU echo 1 month.
[2019-02-17] MEDS: Acetaminophen ADULT LIQ* 650 MG/20.3 ML UDC PO PRN ×2 (18:02→22:03)
[2019-02-17] MEDS: Metoprolol Tartrate IV* 1 MG/ML 5 ML VIAL IV PRN (19:19)
[2019-02-17] MEDS: Enoxaparin(*) 40 MG/0.4 ML SYR SUBCUT SCH (19:20)
[2019-02-17 19:23] LABS: Urine Appearance Cloudy; Urine Bacteria Absent (Absent); Urine Bilirubin Negative (Negative); Urine Blood 2+ (Negative); Urine Color Yellow; Urine Glucose Negative (Negative); Urine Ketones Negative (Negative); Urine Nitrite Negative (Negative); Urine Protein 1+(30 mg/dL) (Negative); Urine Red Blood Cell 1+(3-5/hpf) (Absent); Urine Specific Gravity 1.014 (1.010-1.030); Urine Urobilinogen Negative (Negative); Urine White Blood Cell Trace(0-5/hpf) (Absent)
[2019-02-17 20:25] LABS: Troponin I 0.54 ng/mL (<0.04)
[2019-02-17] MEDS: Metoprolol Tartrate TAB* 25 MG PO SCH (21:01)
[2019-02-17] MEDS: cefTRIAXone(*) 1 GM in NS 0.9% 50 ML* 50 ML IVPB SCH (21:02)
[2019-02-17] MEDS ORDERED: Metoprolol Tartrate IV* 1 MG/ML 5 ML VIAL IV ONE (21:15)
[2019-02-18] MEDS ORDERED: Haloperidol TAB* 1 MG PO PRN (01:44)
[2019-02-18] MEDS ORDERED: Haloperidol INJ IV/IM* 5 MG/ML AMP IV SLOW PU PRN (02:28)
[2019-02-18] MEDS: NS 0.9% 1000 ML** 1,000 ML IV SCH ×2 (05:31→18:37)
[2019-02-18] MEDS: Levothyroxine TAB* 88 MCG TAB PEG TUBE SCH (05:35)
[2019-02-18 06:00] LABS: ALT 252 U/L (7-52); AST 220 U/L (13-39); Albumin 2.6 g/dL (3.2-5.2); Albumin/Globulin Ratio 0.7 (1-3); Alkaline Phosphatase 124 U/L (34-104); Anion Gap 14 mmol/L (2-11); BUN/Creatinine Ratio 35.9 (8-20); Blood Urea Nitrogen 65 mg/dL (6-24); CO2 Carbon Dioxide 18 mmol/L (22-32); Chloride 108 mmol/L (101-111); EGFR African American 44.8 (>60); Globulin 3.6 g/dL (2-4); Glucose 166 mg/dL (70-100); Potassium 3.7 mmol/L (3.5-5.0); Sodium 140 mmol/L (135-145); Total Protein 6.2 g/dL (6.4-8.9)
[2019-02-18 06:08] LABS: Troponin I 0.49 ng/mL (<0.04)
[2019-02-18] MEDS: Famotidine SUSP ORALSYR 8 MG/ML PEG TUBE SCH (09:30)
[2019-02-18] MEDS: Sodium Chloride TAB* 1 GM PEG TUBE SCH ×3 (09:30→20:16)
[2019-02-18] MEDS: Lisinopril TAB* 10 MG PEG TUBE SCH (09:30)
[2019-02-18] MEDS: Metoprolol Tartrate TAB* 25 MG PO SCH ×2 (09:30→20:16)
--- NOTE | 2019-02-18 11:25 | PN ---
Progress Note - Progress Note Date of Service: 02/18/19 SOAP: Subjective: [Very confused overnight, pulling at lines and Avila catheter. His urine has been grossly bloody and passed a few clots, but no longer draining this morning. Patient denies any pain or dyspnea this am. Mental status is back to baseline this morning. He had episodes of rapid afib overnight, none since 0430 this am.] Objective: [ Acetaminophen (Tylenol Adult Liq*) 650 mg PO Q4H PRN PRN Reason: PAIN Last Admin: 02/17/19 22:03 Dose: 650 mg Enoxaparin Sodium (Lovenox(*)) 40 mg SUBCUT Q24H [facility] Last Admin: 02/17/19 19:20 Dose: 40 mg Ergocalciferol (Drisdol Cap*) 50,000 unit PEG TUBE Akers@1700 [facility] Last Admin: 02/15/19 18:13 Dose: Not Given Famotidine (Pepcid Susp 8mg/Ml) 40 mg PEG TUBE DAILY [facility] Last Admin: 02/18/19 09:30 Dose: 40 mg Haloperidol Lactate (Haldol Inj Iv/Im*) 1 mg IV SLOW PU Q4H PRN PRN Reason: AGITATION Last Admin: 02/18/19 02:32 Dose: 1 mg Sodium Chloride (Ns 0.9% 1000 Ml) 1,000 mls @ 75 mls/hr IV PER RATE [facility] Last Admin: 02/18/19 05:31 Dose: 75 mls/hr Ceftriaxone Sodium 1 gm/ (Sodium Chloride) 50 mls @ 200 mls/hr IVPB Q24H [facility] Last Admin: 02/17/19 21:02 Dose: 200 mls/hr Levothyroxine Sodium (Synthroid Tab*) 88 mcg PEG TUBE DAILY@0600 [facility] Last Admin: 02/18/19 05:35 Dose: 88 mcg Lisinopril (Prinivil Tab*) 10 mg PEG TUBE QAM [facility] Last Admin: 02/18/19 09:30 Dose: 10 mg Metoprolol Tartrate (Lopressor Iv*) 5 mg IV Q6H PRN PRN Reason: TACHYCARDIA Last Admin: 02/17/19 19:19 Dose: 5 mg Metoprolol Tartrate (Lopressor Tab*) 25 mg PO BID [facility] Last Admin: 02/18/19 09:30 Dose: 25 mg Sodium Chloride (Sodium Chloride Tab*) 2 gm PEG TUBE TID BLANK Last Admin: 02/18/19 09:30 Dose: 2 gm Laboratory Results - last 24 hr 02/17/19 02/17/19 02/18/19 18:25 19:51 05:33 Sodium 140 Potassium 3.7 Chloride 108 Carbon Dioxide 18 L Anion Gap 14 H BUN 65 H Creatinine 1.81 H Est GFR ( Amer) 44.8 Est GFR (Non-Af Amer) 37.0 BUN/Creatinine Ratio 35.9 H Glucose 166 H Calcium 9.0 Total Bilirubin 0.40 AST 220 H ALT 252 H Alkaline Phosphatase 124 H Troponin I 0.54 H* 0.49 H* Total Protein 6.2 L Albumin 2.6 L Globulin 3.6 Albumin/Globulin Ratio 0.7 L Urine Color Yellow Urine Appearance Cloudy Urine pH 5.0 Ur Specific [place] 1.014 Urine Protein 1+(30 mg/dl) A Urine Ketones Negative Urine Blood 2+ A Urine Nitrate Negative Urine Bilirubin Negative Urine Urobilinogen Negative Ur Leukocyte Esterase Negative Urine WBC (Auto) Trace(0-5/hpf) Urine RBC (Auto) 1+(3-5/hpf) A Urine Bacteria Absent Urine Glucose Negative Vital Signs: Temp Pulse Resp BP Pulse Ox 97.2 F 78 16 149/76 92 02/18/19 08:00 02/18/19 08:00 02/18/19 10:36 02/18/19 08:00 02/18/19 08:00 Exam: Gen: Chronically appearing and weak 73 yo male in NAD HEENT: MMM CV: RRR, subtle murmur Resp: CTA, no w/c/r Abd: soft nonTTP : grossly bloody urine with Avila in place and blood around tip of penis Ext: no edema] Assessment: [73 yo male with relatively new diagnosis of 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 He unfortunately was quite confused overnight, likely representing delirium and attempted to pull his Avila catheter out. He continues to bleed and Avila catheter is not draining appropriately.] Plan: [1. Group B strep endocarditis - cont ceftriaxone for a total of 6 weeks - repeat blood cultures are clear at 24h - consider PICC tomorrow if cultures remain clear 2. Rapid afib - likely a result of increased cardiac irritability from endocarditis - now maintaining NSR on oral metoprolol - cont telemetry monitoring 3. Gross hematuria - secondary to Avila trauma - unfortunately the Avila is not draining despite changing the Avila catheter and repeat irrigation - will request urology consultation for continuous bladder irrigation 4. Recurrent metastatic squamous cell carcinoma - treatment plan will depend on performance status following treatment for infective endocarditis Dispo: will likely require STELLA, do not anticipate readiness for discharge within the next 48 hours]
--- NOTE | 2019-02-18 12:08 | PN ---
Progress Note - Progress Note Date of Service: 02/18/19 SOAP: Subjective: CC: Endocarditis HPI: Mr. Rajan is a 73 yo man with PMH significant for hx palate cancer and PEG tube feeds, lung cancer and liver metastases, now with Group B Strep mitral valve endocarditis seen on TTE. Denies fever, chills, shortness of breath, nausea, vomiting, or constipation. He pulled on his urinary catheter last night resulting in hematuria. NSG staff have been needing to frequently irrigate the catheter and the catheter was exchanged out earlier today with a large amount of clots on the tip. Objective: Vital Signs - 8 hr 02/18/19 02/18/19 02/18/19 04:16 08:00 10:36 Temperature 97.6 F 97.2 F Pulse Rate 94 78 Respiratory 18 16 16 Rate Blood Pressure 152/61 149/76 (mmHg) O2 Sat by Pulse 96 92 Oximetry Physical Exam: General: NAD, laying in bed Neurological: Alert and Oriented to person and place HEENT: No thrush Cardiovascular: Heart rate regular Respiratory: Lung sounds clear, diminished Abdominal: Bowel sounds present; ABD soft, non tender and non distended Skin: No rash Laboratory Results - last 24 hr 02/17/19 02/17/19 02/18/19 18:25 19:51 05:33 Sodium 140 Potassium 3.7 Chloride 108 Carbon Dioxide 18 L Anion Gap 14 H BUN 65 H Creatinine 1.81 H Est GFR ( Amer) 44.8 Est GFR (Non-Af Amer) 37.0 BUN/Creatinine Ratio 35.9 H Glucose 166 H Calcium 9.0 Total Bilirubin 0.40 AST 220 H ALT 252 H Alkaline Phosphatase 124 H Troponin I 0.54 H* 0.49 H* Total Protein 6.2 L Albumin 2.6 L Globulin 3.6 Albumin/Globulin Ratio 0.7 L Urine Color Yellow Urine Appearance Cloudy Urine pH 5.0 Ur Specific [place] 1.014 Urine Protein 1+(30 mg/dl) A Urine Ketones Negative Urine Blood 2+ A Urine Nitrate Negative Urine Bilirubin Negative Urine Urobilinogen Negative Ur Leukocyte Esterase Negative Urine WBC (Auto) Trace(0-5/hpf) Urine RBC (Auto) 1+(3-5/hpf) A Urine Bacteria Absent Urine Glucose Negative Microbiology 02/17/19 05:24 Aerobic Blood Culture - Preliminary Blood Venous No Growth Day 1 Anaerobic Blood Culture - Preliminary No Growth Day 1 06/02/19 12:41 Aerobic Blood Culture - Final Blood Venous Strep Agalactiae - (Group B) Anaerobic Blood Culture - Final Strep Agalactiae - (Group B) 02/15/19 12:30 Aerobic Blood Culture - Final Blood Venous Strep Agalactiae - (Group B) Anaerobic Blood Culture - Final Strep Agalactiae - (Group B) 02/15/19 20:06 Urine Culture - Final Urine No Growth (<1,000 CFU/mL) Assessment: 1. Mitral valve group B strep infective endocarditis. There was a large vegetation seen on the mitral valve with TTE. Has a peg tube, no other prosthetic material present. Initial blood cultures with 4/4 bottles positive for group B strep. Afebrile and no leukocytosis. Repeat blood cultures have been drawn, with no growth on day 1. 2. Lung cancer with liver metastases and palate cancer. 3. Hiro hematuria after trauma from urinary catheter. Plan: Continue ceftriaxone [address] PICC now that blood cultures are negative. He will need to have 6 weeks of ceftriaxone from time of negative cultures, . Weekly CBC, CMP and CRP while on IV ABX. Will need to have a followup echo in 1 month. Recommend considering a Urology consult in the setting of gross hematuria.
[2019-02-18] MEDS: Acetaminophen ADULT LIQ* 650 MG/20.3 ML UDC PO PRN (14:13)
[2019-02-18] MEDS: Enoxaparin(*) 40 MG/0.4 ML SYR SUBCUT SCH (20:17)
--- NOTE | 2019-02-18 21:10 | CONS ---
CONSULTATION NOTE: DATE OF CONSULT: 02/17/19 DIAGNOSIS: Urinary retention. PROCEDURE: Complex placement of urethral catheter (16-Bulgarian coude). HISTORY OF PRESENT ILLNESS: I was asked by the oncology service to see this 73- year-old white male because of gross hematuria and urinary retention. Mr. Rajan has history of multiple malignancies and was admitted with altered mental status, possible subacute bacterial endocarditis. He had a Avila catheter placement for monitoring. There was no difficulty placing his Avila initially and his urine was clear. Today, the patient apparently was significantly disoriented and he pulled his Avila catheter out with inflated balloon. The nurses attempted to replace the Avila; however; he was having gross hematuria and the catheter could not be irrigated. Bladder ultrasound showed a distended bladder with 600 cc. There was blood inside the bag and some blood around the catheter. consultation was obtained. When I saw the patient, he was lying in bed. The Avila catheter was partially pulled out with the balloon in the mid urethra. There was dark blood in his Avila. The Avila catheter was removed. A 16-Bulgarian coude catheter was then passed inside the urethra. After several attempts, the catheter was successfully introduced inside the bladder. The urine from the bladder was light pink and he had retention of about 500 CC. The bladder was irrigated and the returns were clear and there were no clots noted inside the bladder. The catheter was then taped to his leg and then Jeffery bandage applied around the catheter to decrease the chances of the catheter being pulled by the patient again. The plan at this time is for continued catheter drainage. I expect he should be able to void spontaneously whenever he is recovered from this present condition. I will see him back only if needed. [id number]/[facility] #: [id number] [facility]
[2019-02-18] MEDS: cefTRIAXone(*) 1 GM in NS 0.9% 50 ML* 50 ML IVPB SCH (23:08)
[2019-02-19] MEDS ORDERED: Furosemide IV* 10 MG/ML VIAL (40 MG) IV SLOW PU ONE (04:30)
[2019-02-19] MEDS: Levothyroxine TAB* 88 MCG TAB PEG TUBE SCH (05:24)
[2019-02-19 07:21] LABS: Hematocrit 19 % (42-52); Hemoglobin 6.5 g/dL (14.0-18.0); Mean Corpuscular HGB Conc 34 g/dL (31-36); Mean Corpuscular Hemoglobin 32 pg (27-31); Mean Corpuscular Volume 93 fL (80-94); Red Blood Count 2.03 10^6 /uL (4.18-5.48); Red Cell Distribution Width 17 % (10.5-15); White Blood Count 7.8 10^3/uL (3.5-10.8)
[2019-02-19 07:40] LABS: Albumin 2.5 g/dL (3.2-5.2); Albumin/Globulin Ratio 0.7 (1-3); Calcium 8.7 mg/dL (8.6-10.3); EGFR African American 55.2 (>60); EGFR Non-African American 45.7 (>60); Globulin 3.4 g/dL (2-4); Potassium 3.2 mmol/L (3.5-5.0); Total Bilirubin 0.4 mg/dL (0.2-1.0); Total Protein 5.9 g/dL (6.4-8.9)
[2019-02-19 08:23] LABS: ABS Lymphocytes 0.3 10^3/ul (1.0-4.8); ABS Monocytes 0.3 10^3/ul (0-0.8); ABS Neutrophils 7.2 10^3/ul (1.5-7.7); Lymphocyte % 3.9 %; Mean Platelet Volume 10.5 fL (7.4-10.4); Nucleated Red Blood Cells % 0.4; Platelet Count 94 10^3/uL (150-450)
[2019-02-19 08:27] LABS: Polychromasia 1+
--- NOTE | 2019-02-19 09:12 | PN ---
Progress Note - Progress Note Date of Service: 02/19/19 SOAP: Subjective: [Patient developed some hypoxia overnight, IV fluids stopped and given Lasix. Oxygenation improved. This am, patient is difficult to arouse, denies any complaints.] Objective: [ Laboratory Results - last 24 hr 02/19/19 02/19/19 06:17 06:20 WBC 7.8 RBC 2.03 L Hgb 6.5 L Hct 19 L MCV 93 MCH 32 H MCHC 34 RDW 17 H Plt Count 94 L MPV 10.5 H Neut % (Auto) 92.6 Lymph % (Auto) 3.9 [place] % (Auto) 3.3 Eos % (Auto) 0.0 Baso % (Auto) 0.2 Absolute Neuts (auto) 7.2 Absolute Lymphs (auto) 0.3 L Absolute Monos (auto) 0.3 Absolute Eos (auto) 0.0 Absolute Basos (auto) 0.0 Absolute Nucleated RBC 0.0 Immature Gran % 8.0 Neutrophils % 87.0 Band Neutrophils % 4.0 Lymphocytes % 4.0 Monocytes % 1.0 Metamyelocytes % 1.0 Myelocytes % 3.0 H Nucleated RBC % 0.4 Normal RBC Morphology Not Reportable Polychromasia 1+ Anisocytosis 1+ Sodium 146 H Potassium 3.2 L Chloride 114 H Carbon Dioxide 23 Anion Gap 9 BUN 68 H Creatinine 1.51 H Est GFR ( Amer) 55.2 Est GFR (Non-Af Amer) 45.7 BUN/Creatinine Ratio 45.0 H Glucose 135 H Calcium 8.7 Total Bilirubin 0.40 AST 111 H ALT 179 H Alkaline Phosphatase 120 H Total Protein 5.9 L Albumin 2.5 L Globulin 3.4 Albumin/Globulin Ratio 0.7 L Acetaminophen (Tylenol Adult Liq*) 650 mg PO Q4H PRN PRN Reason: PAIN Last Admin: 02/18/19 14:13 Dose: 650 mg Enoxaparin Sodium (Lovenox(*)) 40 mg SUBCUT Q24H [facility] Last Admin: 02/18/19 20:17 Dose: 40 mg Ergocalciferol (Drisdol Cap*) 50,000 unit PEG TUBE Akers@1700 [facility] Last Admin: 02/15/19 18:13 Dose: Not Given Famotidine (Pepcid Susp 8mg/Ml) 40 mg PEG TUBE DAILY [facility] Last Admin: 02/18/19 09:30 Dose: 40 mg Haloperidol Lactate (Haldol Inj Iv/Im*) 1 mg IV SLOW PU Q4H PRN PRN Reason: AGITATION Last Admin: 02/18/19 02:32 Dose: 1 mg Ceftriaxone Sodium 1 gm/ (Sodium Chloride) 50 mls @ 200 mls/hr IVPB Q24H [facility] Last Admin: 02/18/19 23:08 Dose: 200 mls/hr Potassium Chloride (Potassium Chloride 10 Meq/50 Ml Ivpremix*) 10 meq in 50 mls @ 50 mls/hr IV Q1H [facility] Stop: 02/19/19 12:59 Levothyroxine Sodium (Synthroid Tab*) 88 mcg PEG TUBE DAILY@0600 [facility] Last Admin: 02/19/19 05:24 Dose: 88 mcg Lisinopril (Prinivil Tab*) 10 mg PEG TUBE QAM [facility] Last Admin: 02/18/19 09:30 Dose: 10 mg Metoprolol Tartrate (Lopressor Iv*) 5 mg IV Q6H PRN PRN Reason: TACHYCARDIA Last Admin: 02/17/19 19:19 Dose: 5 mg Metoprolol Tartrate (Lopressor Tab*) 25 mg PO BID [facility] Last Admin: 02/18/19 20:16 Dose: 25 mg Sodium Chloride (Sodium Chloride Tab*) 1 gm PEG TUBE TID [facility] Vital Signs: Temp Pulse Resp BP Pulse Ox 97.8 F 68 24 140/63 99 02/19/19 07:46 02/19/19 07:46 02/19/19 07:46 02/19/19 07:46 02/19/19 07:46 Exam: Gen: Ill appearing 73 yo male in NAD HEENT: dry MM CV: RRR, no m/r/g Resp: diffuse crackles and occasional wheeze Abd: soft, PEG tube in place Ext: no edema Neuro: difficult to arouse, opens eyes and follows a few basic commands : Avila in place with pink tinged urine] Assessment: [73 yo male with relatively new diagnosis of 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 His hospital course has been c/b AMS, gross hematuria secondary to self induced Avila trauma. Plan: [1. Group B strep endocarditis - cont ceftriaxone for a total of 6 weeks - repeat blood cultures are clear at 24h - plan for PICC placement later today 2. Encephalopathy - likely delirium, but his mental status appears to be worse - CT head without contrast to r/o gross pathology - ABG to eval for hypercarbia - noted transaminitis, which is improving - check ammonia - check CXR 3. Rapid afib - likely a result of increased cardiac irritability from endocarditis - now maintaining NSR on oral metoprolol - cont telemetry monitoring 4. Gross hematuria with acute blood loss anemia - secondary to Avila trauma, now improved - transfuse 1U PRBCs 5. Recurrent metastatic squamous cell carcinoma - treatment plan will depend on performance status following treatment for infective endocarditis Dispo: will likely require STELLA, but requires continued hospitalization at this time
[2019-02-19 09:43] LABS: Magnesium 1.9 mg/dL (1.9-2.7)
[2019-02-19] MEDS: Lisinopril TAB* 10 MG PEG TUBE SCH (10:16)
[2019-02-19] MEDS: Sodium Chloride TAB* 1 GM PEG TUBE SCH ×3 (10:16→20:32)
[2019-02-19] MEDS: Metoprolol Tartrate TAB* 25 MG PO SCH ×2 (10:16→20:32)
--- NOTE | 2019-02-19 10:39 | PN ---
Progress Note - Progress Note Date of Service: 02/19/19 SOAP: Subjective: CC: Endocarditis HPI: Mr. Rajan is a 73 yo man with PMH significant for hx palate cancer and PEG tube feeds, lung cancer and liver metastases, now with Group B Strep mitral valve endocarditis seen on TTE. Denies fever, chills, shortness of breath, nausea, vomiting, or constipation. Mr. Rajan has been agitated this morning, he was noted to be lethargic earlier this morning according to NSG notes. Objective: Vital Signs - 8 hr 02/19/19 07:46 Temperature 97.8 F Pulse Rate 68 Respiratory 24 Rate Blood Pressure 140/63 (mmHg) O2 Sat by Pulse 99 Oximetry Physical Exam: General: NAD, sitting up in a chair Neurological: Alert and Oriented to Person HEENT: No thrush, dry MM Cardiovascular: Hear rate regular Respiratory: Lung sounds clear, diminished Abdominal: Bowel sounds present; ABD soft, non tender, slightly distended Laboratory Last Values WBC 7.8 10^3/uL (3.5-10.8) 02/19/19 06:20 RBC 2.03 10^6 /uL (4.18-5.48) L 02/19/19 06:20 Hgb 6.5 g/dL (14.0-18.0) L 02/19/19 06:20 Hct 19 % (42-52) L 02/19/19 06:20 MCV 93 fL (80-94) 02/19/19 06:20 MCH 32 pg (27-31) H 02/19/19 06:20 MCHC 34 g/dL (31-36) 02/19/19 06:20 RDW 17 % (10.5-15) H 02/19/19 06:20 Plt Count 94 10^3/uL (150-450) L 02/19/19 06:20 MPV 10.5 fL (7.4-10.4) H 02/19/19 06:20 Neut % (Auto) 92.6 % 02/19/19 06:20 Lymph % (Auto) 3.9 % 02/19/19 06:20 [place] % (Auto) 3.3 % 02/19/19 06:20 Eos % (Auto) 0.0 % 02/19/19 06:20 Baso % (Auto) 0.2 % 02/19/19 06:20 Absolute Neuts (auto) 7.2 10^3/ul (1.5-7.7) 02/19/19 06:20 Absolute Lymphs (auto) 0.3 10^3/ul (1.0-4.8) L 02/19/19 06:20 Absolute Monos (auto) 0.3 10^3/ul (0-0.8) 02/19/19 06:20 Absolute Eos (auto) 0.0 10^3/ul (0-0.6) 02/19/19 06:20 Absolute Basos (auto) 0.0 10^3/ul (0-0.2) 02/19/19 06:20 Absolute Nucleated RBC 0.0 10^3/ul 02/19/19 06:20 Immature Gran % 8.0 % (0-9) 02/19/19 06:20 Neutrophils % 87.0 % 02/19/19 06:20 Band Neutrophils % 4.0 % (0-8) 02/19/19 06:20 Lymphocytes % 4.0 % 02/19/19 06:20 Monocytes % 1.0 % 02/19/19 06:20 Metamyelocytes % 1.0 % (0-2) 02/19/19 06:20 Myelocytes % 3.0 % (0-1) H 02/19/19 06:20 Nucleated RBC % 0.4 02/19/19 06:20 Normal RBC Morphology Not Reportable 02/19/19 06:20 Polychromasia 1+ 02/19/19 06:20 Anisocytosis 1+ 02/19/19 06:20 ESR 90 mm/Hr (0-19) H 02/15/19 12:30 Patient Temperature Not Reportable 02/19/19 09:58 ABG pH 7.37 (7.35-7.45) 02/19/19 09:58 ABG pH (Temp Correct) Not Reportable 02/19/19 09:58 ABG pCO2 39 mmHg (35-45) 02/19/19 09:58 ABG pCO2 (Temp Corrct Not Reportable 02/19/19 09:58 ABG pO2 74 mmHg (80-100) L 02/19/19 09:58 ABG pO2 (Temp Correct Not Reportable 02/19/19 09:58 ABG HCO3 22.9 mmol/L (19-31) 02/19/19 09:58 ABG O2 Saturation 96.3 % (94.0-98.0) 02/19/19 09:58 ABG Base Excess -2.5 mmol/L (-2.0-2.0) L 02/19/19 09:58 Respiration Rate Not Reportable 02/19/19 09:58 O2 Delivery Device 6 lpm nc 02/19/19 09:58 Ventilator Type Not Reportable 02/19/19 09:58 Vent Mode Not Reportable 02/19/19 09:58 FiO2 Not Reportable 02/19/19 09:58 Inspiratory Time Not Reportable 02/19/19 09:58 PEEP Not Reportable 02/19/19 09:58 Pressure Support Not Reportable 02/19/19 09:58 Pressure Control Not Reportable 02/19/19 09:58 EPAP Not Reportable 02/19/19 09:58 IPAP Not Reportable 02/19/19 09:58 BiPAP Not Reportable 02/19/19 09:58 Sodium 146 mmol/L (135-145) H 02/19/19 06:17 Potassium 3.2 mmol/L (3.5-5.0) L 02/19/19 06:17 Chloride 114 mmol/L (101-111) H 02/19/19 06:17 Carbon Dioxide 23 mmol/L (22-32) 02/19/19 06:17 Anion Gap 9 mmol/L (2-11) 02/19/19 06:17 BUN 68 mg/dL (6-24) H 02/19/19 06:17 Creatinine 1.51 mg/dL (0.67-1.17) H 02/19/19 06:17 Est GFR ( Amer) 55.2 (>60) 02/19/19 06:17 Est GFR (Non-Af Amer) 45.7 (>60) 02/19/19 06:17 BUN/Creatinine Ratio 45.0 (8-20) H 02/19/19 06:17 Glucose 135 mg/dL (70-100) H 02/19/19 06:17 Lactic Acid 1.5 mmol/L (0.5-2.0) 02/15/19 12:30 Calcium 8.7 mg/dL (8.6-10.3) 02/19/19 06:17 Magnesium 1.9 mg/dL (1.9-2.7) 02/19/19 06:17 Total Bilirubin 0.40 mg/dL (0.2-1.0) 02/19/19 06:17 AST 111 U/L (13-39) H 02/19/19 06:17 ALT 179 U/L (7-52) H 02/19/19 06:17 Alkaline Phosphatase 120 U/L (34-104) H 02/19/19 06:17 Ammonia 34 mcmol/L (16-53) 02/19/19 09:40 Total Creatine Kinase 10 U/L (10-223) 02/15/19 12:30 CK-MB (CK-2) 0.8 ng/mL (0.6-6.3) 02/15/19 12:30 Troponin I 0.49 ng/mL (<0.04) H* 02/18/19 05:33 C-Reactive Protein 180.64 mg/L (<8.01) H 02/15/19 12:30 B-Natriuretic Peptide > 1300 pg/mL (<=100) H 02/15/19 12:30 Total Protein 5.9 g/dL (6.4-8.9) L 02/19/19 06:17 Albumin 2.5 g/dL (3.2-5.2) L 02/19/19 06:17 Globulin 3.4 g/dL (2-4) 02/19/19 06:17 Albumin/Globulin Ratio 0.7 (1-3) L 02/19/19 06:17 TSH 5.43 mcIU/mL (0.34-5.60) 02/15/19 12:30 Urine Color Yellow 02/17/19 18:25 Urine Appearance Cloudy 02/17/19 18:25 Urine pH 5.0 (5-9) 02/17/19 18:25 Ur Specific [place] 1.014 (1.010-1.030) 02/17/19 18:25 Urine Protein 1+(30 mg/dl) (Negative) A 02/17/19 18:25 Urine Ketones Negative (Negative) 02/17/19 18:25 Urine Blood 2+ (Negative) A 02/17/19 18:25 Urine Nitrate Negative (Negative) 02/17/19 18:25 Urine Bilirubin Negative (Negative) 02/17/19 18:25 Urine Urobilinogen Negative (Negative) 02/17/19 18:25 Ur Leukocyte Esterase Negative (Negative) 02/17/19 18:25 Urine WBC (Auto) Trace(0-5/hpf) (Absent) 02/17/19 18:25 Urine RBC (Auto) 1+(3-5/hpf) (Absent) A 02/17/19 18:25 Ur Squamous Epith Cells Present (Absent) A 02/15/19 20:06 Urine Bacteria Absent (Absent) 02/17/19 18:25 Hyaline Casts Present (Absent) A 02/15/19 20:06 Urine Glucose Negative (Negative) 02/17/19 18:25 Influenza A (Rapid) Negative (Negative) 02/15/19 16:37 Influenza B (Rapid) Negative (Negative) 02/15/19 16:37 Microbiology 02/17/19 05:24 Aerobic Blood Culture - Preliminary Blood Venous No Growth Day 2 Anaerobic Blood Culture - Preliminary No Growth Day 2 02/17/19 18:25 Urine Culture - Final Urine No Growth (<1,000 CFU/mL) 02/15/19 12:41 Aerobic Blood Culture - Final Blood Venous Strep Agalactiae - (Group B) Anaerobic Blood Culture - Final Strep Agalactiae - (Group B) 02/15/19 12:30 Aerobic Blood Culture - Final Blood Venous Strep Agalactiae - (Group B) Anaerobic Blood Culture - Final Strep Agalactiae - (Group B) 02/15/19 20:06 Urine Culture - Final Urine No Growth (<1,000 CFU/mL) Assessment: 1. Mitral valve group B strep infective endocarditis. There was a large vegetation seen on the mitral valve with TTE. Has a peg tube, no other prosthetic material present. Initial blood cultures with 4/4 bottles positive for group B strep. Repeat blood cultures have been drawn, with no growth on day 2. Afebrile and no leukocytosis. 2. Encephalopathy. Diff dx: Delirium vs embolism from endocarditis. Brain CT pending at this time. 3. Lung cancer with liver metastases and palate cancer. 4. Hematuria. After trauma from urinary catheter being pulled on, resolved Plan: Continue ceftriaxone [address] PICC now that blood cultures are negative. He will need to have 6 weeks of ceftriaxone from time of negative cultures, Day . Weekly CBC, CMP and CRP while on IV ABX. Will need to have a followup echo in 1 month.
[2019-02-19] MEDS: KCL 10 MEQ/50 ML IVPREMIX* 10 MEQ/50 ML BAG IV SCH ×3 (11:30→14:45)
[2019-02-19] MEDS: Famotidine SUSP ORALSYR 8 MG/ML PEG TUBE SCH (11:33)
[2019-02-19] MEDS: Furosemide IV* 10 MG/ML 2 ML VIAL (20 MG) IV SCH (19:55)
[2019-02-19] MEDS: KCL 20 MEQ/100 ML IVPREMIX* 20 MEQ/100 ML BAG IV SCH ×2 (20:31→22:37)
[2019-02-19] MEDS: Enoxaparin(*) 40 MG/0.4 ML SYR SUBCUT SCH (20:31)
[2019-02-19] MEDS: cefTRIAXone(*) 1 GM in NS 0.9% 50 ML* 50 ML IVPB SCH (22:37)
[2019-02-20] MEDS ORDERED: Furosemide IV* 10 MG/ML 10 ML VIAL (100 MG) IV ONE (04:07)
--- NOTE | 2019-02-20 04:17 | PN ---
Hospitalist Progress Note Date of Service: 02/20/19 Called to bedside by nursing d/t concern for increased oxygen requirements. Patient had been saturating well on 6L and somewhat suddenly began to desat, requiring 15L oxymask in order to maintain sats in the 90s. Still arousable and mentating well. Nurse spoke with Oncology who asked for Hospitalists to evaluate for possible transfer to ICU. Patient sounds wet upon entering the room and tachypneic, though not in obvious distress. Coarse crackles throughout on auscultation, R>L. +2 pitting to BLE. Tele showing NSR in the 80s with occasional PVCs. Portable CXR ordered, showing pulmonary edema which appears to be worsening since CXR from 02/19/19 AM. RT in to evaluate and felt as though he would benefit from BiPAP. Will transfer down to ICU for initiation of BiPAP. Ordered Lasix 60mg IV now. Check BMP as he has received a moderate amount of Lasix today and did have some short runs of VT earlier in the night. ABG ordered now, and may repeat once established on BiPAP if necessary.
[2019-02-20 04:46] LABS: Albumin 2.5 g/dL (3.2-5.2); Albumin/Globulin Ratio 0.7 (1-3); BUN/Creatinine Ratio 49.7 (8-20); Calcium 8.8 mg/dL (8.6-10.3); EGFR African American 58.8 (>60); EGFR Non-African American 48.6 (>60); Globulin 3.5 g/dL (2-4); Magnesium 1.9 mg/dL (1.9-2.7); Potassium 4.2 mmol/L (3.5-5.0); Total Bilirubin 0.3 mg/dL (0.2-1.0)
[2019-02-20] MEDS: Levothyroxine TAB* 88 MCG TAB PEG TUBE SCH (05:12)
[2019-02-20 05:15] LABS: Hematocrit 25 % (42-52); Hemoglobin 8.2 g/dL (14.0-18.0); Mean Corpuscular HGB Conc 32 g/dL (31-36); Mean Corpuscular Hemoglobin 31 pg (27-31); Mean Corpuscular Volume 97 fL (80-94); Mean Platelet Volume 10.5 fL (7.4-10.4); Platelet Count 127 10^3/uL (150-450); Red Blood Count 2.62 10^6 /uL (4.18-5.48); Red Cell Distribution Width 17 % (10-15); White Blood Count 19.8 10^3/uL (3.5-10.8)
[2019-02-20 05:46] LABS: ABS Basophils 0.1 10^3/ul (0-0.2); ABS Eosinophils 0.2 10^3/ul (0-0.6); ABS Lymphocytes 0.6 10^3/ul (1.0-4.8); ABS Monocytes 0.8 10^3/ul (0-0.8); ABS Neutrophils 18.2 10^3/ul (1.5-7.7); ABS Nucleated RBC 0.3 10^3/ul; Eosinophil % 1.1 %; Lymphocyte % 2.9 %; Nucleated Red Blood Cells % 1.7
[2019-02-20] MEDS: Cefepime 1 GM in Dextrose(*) 1 GM/50 ML BAG IV SCH ×2 (06:10→17:15)
[2019-02-20] MEDS ORDERED: Vancomycin(*) 1,000 MG in NS 0.9% 250 ML* 250 ML IVPB ONE (06:30)
[2019-02-20] MEDS: Furosemide IV* 10 MG/ML 2 ML VIAL (20 MG) IV SCH ×2 (08:15→21:29)
[2019-02-20] MEDS: Sodium Chloride TAB* 1 GM PEG TUBE SCH (08:15)
[2019-02-20] MEDS: Metoprolol Tartrate TAB* 25 MG PO SCH ×2 (08:15→21:29)
[2019-02-20] MEDS: Famotidine SUSP ORALSYR 8 MG/ML PEG TUBE SCH (08:15)
[2019-02-20] MEDS: Lisinopril TAB* 10 MG PEG TUBE SCH (08:15)
--- NOTE | 2019-02-20 09:27 | PN ---
Progress Note - Progress Note Date of Service: 02/20/19 SOAP: Subjective: []In ICU overnight with acute pulmonary edema, respiratory acidosis. Better this am s/p 2L fluid out. He responds with head movements, denies pain, denies SOB. Acetaminophen (Tylenol Adult Liq*) 650 mg PO Q4H PRN PRN Reason: PAIN Last Admin: 02/18/19 14:13 Dose: 650 mg Enoxaparin Sodium (Lovenox(*)) 40 mg SUBCUT Q24H [facility] Last Admin: 02/19/19 20:31 Dose: 40 mg Ergocalciferol (Drisdol Cap*) 50,000 unit PEG TUBE Akers@1700 [facility] Last Admin: 02/15/19 18:13 Dose: Not Given Famotidine (Pepcid Susp 8mg/Ml) 40 mg PEG TUBE DAILY [facility] Last Admin: 02/20/19 08:15 Dose: 40 mg Furosemide (Lasix Iv*) 20 mg IV BID [facility] Last Admin: 02/20/19 08:15 Dose: 20 mg Haloperidol Lactate (Haldol Inj Iv/Im*) 1 mg IV SLOW PU Q4H PRN PRN Reason: AGITATION Last Admin: 02/18/19 02:32 Dose: 1 mg Heparin Sodium (Porcine) (Heparin Flush Picc/Ml/Cvc(*)) 1 - 3 ml FLUSH 0600, 1800 [facility]; Protocol Last Admin: 02/20/19 05:01 Dose: 1 ml Cefepime HCl (Maxipime 1 Gm In Dextrose Duplex (*)) 1 gm in 50 mls @ 100 mls/ hr IV Q12H [facility] Last Admin: 02/20/19 06:10 Dose: 100 mls/hr Levothyroxine Sodium (Synthroid Tab*) 88 mcg PEG TUBE DAILY@0600 [facility] Last Admin: 02/20/19 05:12 Dose: 88 mcg Lisinopril (Prinivil Tab*) 10 mg PEG TUBE QAM [facility] Last Admin: 02/20/19 08:15 Dose: 10 mg Metoprolol Tartrate (Lopressor Iv*) 5 mg IV Q6H PRN PRN Reason: TACHYCARDIA Last Admin: 02/17/19 19:19 Dose: 5 mg Metoprolol Tartrate (Lopressor Tab*) 25 mg PO BID [facility] Last Admin: 06/07/19 08:15 Dose: 25 mg Sodium Chloride (Sodium Chloride Tab*) 1 gm PEG TUBE TID [facility] Last Admin: 02/20/19 08:15 Dose: 1 gm Objective: [] Vital Signs Temp Pulse Resp BP Pulse Ox 96.7 F 68 16 143/75 100 02/20/19 05:10 02/20/19 09:00 02/20/19 09:00 02/20/19 09:00 02/20/19 09:00 HEENT: Has bi pap on, no JVD Lung sound clear this am, no crackles or wheezing. RRR S1S2 and in 70s +BS mild distension. 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 Has has several cancers over past several years and has chronic disability from therapy of squamous cell H+N cancer. Pulmonary nodule s/p wedge resection in 11/2017 with spumous cell cancer as well, presumed second primary, both lesion HPV positive. Recent diagnosis of recurrent disease to liver. Then admission for strep endocarditis. Plan: []1. SOB. Suspect pulmonary edema after PRBC in setting of CHF. Improved after IV Lasix on bipap. - Will try to wean to NC today, stay in ICU until tomorrow am. - Check BNP today and tomorrow am - Lasix 20 mg IV q am for now - Stop sodium chloride pills. 2. VTAC. Improved and likely second to low Mg and hypoxia. - Continue to replete Mg - Follow ICU overnight. 3. A-fib. Improved on metoprolol 4. MS change. Likely second to in hospital delirium. - avoid sedating medications - Haldol PRN - MRI brain once more stable. 5. Squamous cell cancer. Will paln family meeting to discuss prognosis and goals of care. Possible hospice on discharge. 6. Code status. Full code pending family meeting time at bedside 40 min.
[2019-02-20] MEDS ORDERED: Magnesium Sulfate IV* 3 GM in NS 0.9% 100 ML* 100 ML IVPB ONE (09:45)
[2019-02-20] MEDS ORDERED: Gadoteridol* (CONTRAST) 279.3 MG/ML 10 ML IV ONE (10:38)
[2019-02-20] MEDS ORDERED: Vancomycin per Pharmacy* NOTE FOLLOW UP PRN (10:56)
[2019-02-20] MEDS ORDERED: Furosemide IV* 10 MG/ML 2 ML VIAL (20 MG) IV ONE (16:46)
[2019-02-20] MEDS: Enoxaparin(*) 40 MG/0.4 ML SYR SUBCUT SCH (21:29)
[2019-02-21] MEDS ORDERED: ALPRAZolam TAB* 0.25 MG PO ONE (03:09)
[2019-02-21] MEDS: Levothyroxine TAB* 88 MCG TAB PEG TUBE SCH (06:02)
[2019-02-21] MEDS: Cefepime 1 GM in Dextrose(*) 1 GM/50 ML BAG IV SCH ×2 (06:16→17:22)
[2019-02-21 06:55] LABS: Albumin 2.4 g/dL (3.2-5.2); Albumin/Globulin Ratio 0.7 (1-3); BUN/Creatinine Ratio 48.9 (8-20); Calcium 8.4 mg/dL (8.6-10.3); EGFR Non-African American 52.9 (>60); Globulin 3.4 g/dL (2-4); Magnesium 2.2 mg/dL (1.9-2.7); Total Bilirubin 0.5 mg/dL (0.2-1.0); Total Protein 5.8 g/dL (6.4-8.9)
[2019-02-21 06:58] LABS: Hematocrit 23 % (42-52); Hemoglobin 7.2 g/dL (14.0-18.0); Mean Corpuscular HGB Conc 32 g/dL (31-36); Mean Corpuscular Hemoglobin 31 pg (27-31); Mean Corpuscular Volume 95 fL (80-94); Mean Platelet Volume 9.9 fL (7.4-10.4); Platelet Count 95 10^3/uL (150-450); Red Blood Count 2.36 10^6 /uL (4.18-5.48); Red Cell Distribution Width 16 % (10-15); White Blood Count 11.1 10^3/uL (3.5-10.8)
[2019-02-21] MEDS: Vancomycin(*) 1,000 MG in NS 0.9% 250 ML* 250 ML IVPB SCH (07:35)
--- NOTE | 2019-02-21 09:33 | PN ---
Progress Note - Progress Note Date of Service: 02/21/19 SOAP: Subjective: []Feels very weak. MS is improved and he is conversational. Discussed condition and goals of care. Acetaminophen (Tylenol Adult Liq*) 650 mg PO Q4H PRN PRN Reason: PAIN Last Admin: 02/18/19 14:13 Dose: 650 mg Enoxaparin Sodium (Lovenox(*)) 40 mg SUBCUT Q24H [facility] Last Admin: 02/20/19 21:29 Dose: 40 mg Ergocalciferol (Drisdol Cap*) 50,000 unit PEG TUBE Akers@1700 [facility] Last Admin: 02/15/19 18:13 Dose: Not Given Famotidine (Pepcid Susp 8mg/Ml) 40 mg PEG TUBE DAILY [facility] Last Admin: 02/20/19 08:15 Dose: 40 mg Furosemide (Lasix Iv*) 20 mg IV BID [facility] Last Admin: 02/20/19 21:29 Dose: 20 mg Haloperidol Lactate (Haldol Inj Iv/Im*) 1 mg IV SLOW PU Q4H PRN PRN Reason: AGITATION Last Admin: 02/18/19 02:32 Dose: 1 mg Heparin Sodium (Porcine) (Heparin Flush Picc/Ml/Cvc(*)) 1 - 3 ml FLUSH 0600, 1800 [facility]; Protocol Last Admin: 02/21/19 06:24 Dose: Not Given Cefepime HCl (Maxipime 1 Gm In Dextrose Duplex (*)) 1 gm in 50 mls @ 100 mls/ hr IV Q12H [facility] Last Admin: 02/21/19 06:16 Dose: 100 mls/hr Levothyroxine Sodium (Synthroid Tab*) 88 mcg PEG TUBE DAILY@0600 [facility] Last Admin: 02/21/19 06:02 Dose: 88 mcg Lisinopril (Prinivil Tab*) 10 mg PEG TUBE QAM [facility] Last Admin: 02/20/19 08:15 Dose: 10 mg Metoprolol Tartrate (Lopressor Iv*) 5 mg IV Q6H PRN PRN Reason: TACHYCARDIA Last Admin: 02/17/19 19:19 Dose: 5 mg Metoprolol Tartrate (Lopressor Tab*) 25 mg PO BID [facility] Last Admin: 02/20/19 21:29 Dose: 25 mg Pharmacy Consult (Vancomycin Per Pharmacy*) 1 note FOLLOW UP . PRN PRN Reason: PER PROTOCOL Pharmacy Profile Note (Vancomycin Trough Check) 1 note FOLLOW UP 0630 [facility] Stop: 02/23/19 06:31 Objective: [] Vital Signs Temp Pulse Resp BP Pulse Ox 99.0 F 66 20 129/69 100 02/20/19 19:57 02/21/19 07:00 02/21/19 07:00 02/21/19 07:00 02/21/19 07:00 ill appearing, thin HEENT: face mask, OM dry Lung sound clear this am, no crackles or wheezing. RRR S1S2 and in 70s +BS mild distension. 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 Has has several cancers over past several years and has chronic disability from therapy of squamous cell H+N cancer. Now course complicated by strep endocarditis with [employer] embolic disease. He is HEENT: Has bi pap on, no JVD Lung sound clear this am, no crackles or wheezing. RRR S1S2 and in 70s +BS mild distension. 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 Has has several cancers over past several years and has chronic disability from therapy of squamous cell H+N cancer. Pulmonary nodule s/p wedge resection in 11/2017 with spumous cell cancer as well, presumed second primary, both lesion HPV positive. Recent diagnosis of recurrent disease to liver. Then admission for strep endocarditis. He is debilitated and bed bound, has been refusing tube feeds. Discussed prognosis from cancer and infection. He is not a candidate for therapy for his cancer. Cancer will grow but time course variable. He is ill now from infection. Goal of care is for him to get home and have some time with QOL similar to 3 weeks ago. We decided to treat his infection and try and improve his nutrition. Will use medications, he will take tube feeds. He dose not want extreme measures or diagnostic testing such as CT scans or MRI. If medical management does not lead to improvement will go to comfort care. Plan: []1. SOB. Pulmonary edema after PRBC in setting of CHF. Improved after IV Lasix , now on face mask - Lasix 20 IV qd, goal of neg 1-2 L - Check BNP Saturday. 2. VTAC. Improved and likely second to low Mg and hypoxia. - Continue to replete K as needed - Can transfer to floor on telemetry 3. A-fib. Improved on metoprolol 4. MS change. Septic [employer] emboli, improved. - avoid sedating medications - Haldol PRN 5. Squamous cell cancer. No therapy and will follow. 6. Plan of care as above - DNR DNI and no CT scans or MRI - Continue medical support
[2019-02-21] MEDS: KCL 10 MEQ/50 ML IVPREMIX* 10 MEQ/50 ML BAG IV SCH ×4 (10:00→14:39)
[2019-02-21] MEDS: Metoprolol Tartrate TAB* 25 MG PO SCH ×2 (10:00→23:04)
[2019-02-21] MEDS: Lisinopril TAB* 10 MG PEG TUBE SCH (10:00)
[2019-02-21] MEDS: Furosemide IV* 10 MG/ML 2 ML VIAL (20 MG) IV SCH ×2 (10:00→21:27)
[2019-02-21] MEDS: Famotidine SUSP ORALSYR 8 MG/ML PEG TUBE SCH (10:00)
[2019-02-21] MEDS: Potassium Chloride* LIQUID 20 MEQ/15 ML UDC PO SCH ×2 (10:00→21:27)
[2019-02-21] MEDS: Enoxaparin(*) 40 MG/0.4 ML SYR SUBCUT SCH (23:04)
[2019-02-22] MEDS: Metoprolol Tartrate IV* 1 MG/ML 5 ML VIAL IV PRN (00:26)
[2019-02-22] MEDS ORDERED: Diltiazem IV push/loading dose 5 MG/ML 5 ML vial (25 mg) IV SLOW PU PRN (00:30)
--- NOTE | 2019-02-22 00:46 | PN ---
Hospitalist Progress Note Date of Service: 02/22/19 Called to bedside of pt, in fib with RVR, rates 150s. Metop IV 5mg x1 with no response, pt seen at bedside, mildly symptomatic but ill overall, appreciate Dr. Nuñez's notes, hemodynamically stable -Dilt 10mg x1, can repeat q 6 hr PRN for sustain fib with RVR, Metop 5 q 4 hr alternating -Pt responsive to Dilt, will continue to monitor and keep in mind pts GOC
[2019-02-22] MEDS: Acetaminophen ADULT LIQ* 650 MG/20.3 ML UDC PO PRN ×2 (01:05→23:23)
[2019-02-22] MEDS ORDERED: Diltiazem IV VIAL* 125 MG in NS 0.9% 100 ML* 100 ML IVPB SCH (02:00)
[2019-02-22] MEDS ORDERED: Digoxin IV* 0.5 MG/2 ML AMP (0.25 MG/ML) IV SLOW PU ONE (02:22)
[2019-02-22 06:12] LABS: Hematocrit 23 % (42-52); Hemoglobin 7.3 g/dL (14.0-18.0); Mean Corpuscular HGB Conc 32 g/dL (31-36); Mean Corpuscular Hemoglobin 31 pg (27-31); Mean Corpuscular Volume 97 fL (80-94); Platelet Count 100 10^3/uL (150-450); Red Blood Count 2.34 10^6 /uL (4.18-5.48); Red Cell Distribution Width 16 % (10-15); White Blood Count 6.8 10^3/uL (3.5-10.8)
[2019-02-22 06:13] LABS: Albumin 2.3 g/dL (3.2-5.2); Albumin/Globulin Ratio 0.7 (1-3); BUN/Creatinine Ratio 46.6 (8-20); Calcium 8.4 mg/dL (8.6-10.3); EGFR African American 73.4 (>60); EGFR Non-African American 60.7 (>60); Globulin 3.4 g/dL (2-4); Potassium 3.2 mmol/L (3.5-5.0); Total Bilirubin 0.5 mg/dL (0.2-1.0); Total Protein 5.7 g/dL (6.4-8.9)
[2019-02-22] MEDS: Cefepime 1 GM in Dextrose(*) 1 GM/50 ML BAG IV SCH ×2 (06:31→18:15)
[2019-02-22] MEDS: Levothyroxine TAB* 88 MCG TAB PEG TUBE SCH (06:32)
[2019-02-22 06:48] LABS: ABS Eosinophils 0.1 10^3/ul (0-0.6); ABS Lymphocytes 0.3 10^3/ul (1.0-4.8); ABS Monocytes 0.2 10^3/ul (0-0.8); ABS Neutrophils 6.2 10^3/ul (1.5-7.7); ABS Nucleated RBC 0.1 10^3/ul; Eosinophil % 0.8 %; Lymphocyte % 4.2 %; Nucleated Red Blood Cells % 1.3
[2019-02-22] MEDS: Vancomycin(*) 1,000 MG in NS 0.9% 250 ML* 250 ML IVPB SCH (07:53)
[2019-02-22] MEDS: Furosemide IV* 10 MG/ML 2 ML VIAL (20 MG) IV SCH ×2 (07:53→20:52)
[2019-02-22] MEDS: Famotidine SUSP ORALSYR 8 MG/ML PEG TUBE SCH (07:54)
[2019-02-22] MEDS: Lisinopril TAB* 10 MG PEG TUBE SCH (07:54)
[2019-02-22] MEDS: Potassium Chloride* LIQUID 20 MEQ/15 ML UDC PO SCH (07:54)
[2019-02-22] MEDS: Metoprolol Tartrate TAB* 25 MG PO SCH ×2 (07:54→19:29)
--- NOTE | 2019-02-22 10:24 | PN ---
Subjective Date of Service: 02/22/19 Interval History: Overnight had rapid atrial fibrillation, currently rate controlled. patient has no chest pain, no palpitations. Feels tired, fatigued. Objective Active Medications: Acetaminophen (Tylenol Adult Liq*) 650 mg PO Q4H PRN PRN Reason: PAIN Last Admin: 02/22/19 01:05 Dose: 650 mg Enoxaparin Sodium (Lovenox(*)) 40 mg SUBCUT Q24H [facility] Last Admin: 02/21/19 23:04 Dose: Not Given Ergocalciferol (Drisdol Cap*) 50,000 unit PEG TUBE Akers@1700 [facility] Last Admin: 02/15/19 18:13 Dose: Not Given Famotidine (Pepcid Susp 8mg/Ml) 40 mg PEG TUBE DAILY [facility] Last Admin: 02/22/19 07:54 Dose: Not Given Furosemide (Lasix Iv*) 20 mg IV BID [facility] Last Admin: 02/22/19 07:53 Dose: 20 mg Haloperidol Lactate (Haldol Inj Iv/Im*) 1 mg IV SLOW PU Q4H PRN PRN Reason: AGITATION Last Admin: 02/18/19 02:32 Dose: 1 mg Heparin Sodium (Porcine) (Heparin Flush Picc/Ml/Cvc(*)) 1 - 3 ml FLUSH 0600, 1800 [facility]; Protocol Last Admin: 02/22/19 07:53 Dose: 1 ml Cefepime HCl (Maxipime 1 Gm In Dextrose Duplex (*)) 1 gm in 50 mls @ 100 mls/ hr IV Q12H [facility] Last Admin: 02/22/19 06:31 Dose: 100 mls/hr Vancomycin HCl 1,000 mg/ (Sodium Chloride) 250 mls @ 166.667 mls/hr IVPB Q24H [facility] Last Admin: 02/22/19 07:53 Dose: 166.667 mls/hr Levothyroxine Sodium (Synthroid Tab*) 88 mcg PEG TUBE DAILY@0600 [facility] Last Admin: 02/22/19 06:32 Dose: Not Given Lisinopril (Prinivil Tab*) 10 mg PEG TUBE QAM [facility] Last Admin: 02/22/19 07:54 Dose: Not Given Metoprolol Tartrate (Lopressor Iv*) 5 mg IV Q6H PRN PRN Reason: TACHYCARDIA Last Admin: 02/22/19 00:26 Dose: 5 mg Metoprolol Tartrate (Lopressor Tab*) 25 mg PO BID BLANK Last Admin: 02/22/19 07:54 Dose: Not Given Pharmacy Consult (Vancomycin Per Pharmacy*) 1 note FOLLOW UP . PRN PRN Reason: PER PROTOCOL Pharmacy Profile Note (Vancomycin Trough Check) 1 note FOLLOW UP 0630 ONE Stop: 02/23/19 06:31 Vital Signs - 8 hr 02/22/19 02/22/19 02/22/19 02:42 03:40 07:34 Temperature 98.8 F Pulse Rate 140 140 Respiratory 20 20 Rate Blood Pressure 146/98 (mmHg) O2 Sat by Pulse 90 Oximetry 02/22/19 09:19 Temperature 98.3 F Pulse Rate 68 Respiratory 22 Rate Blood Pressure 119/77 (mmHg) O2 Sat by Pulse 100 Oximetry Oxygen Devices in Use Now: Nasal Cannula Appearance: Ill appearing male, lying in bed, not in distress Respiratory: - - tachypneic with crackles Cardiovascular: - - trace lower extremity edema, no chest wall tenderness, irregularly irregular Abdominal: NL Sounds; No Tenderness; No Distention Neurological: Alert and Oriented x 3 Result Diagrams: 02/22/19 05:42 02/22/19 05:42 Microbiology and Other Data: Microbiology 02/17/19 05:24 Aerobic Blood Culture - Final Blood Venous No Growth Day 5 Anaerobic Blood Culture - Final No Growth Day 5 02/20/19 05:28 Nasal Screen MRSA (PCR) - Final Nasal Mrsa Detected 02/17/19 18:25 Urine Culture - Final Urine No Growth (<1,000 CFU/mL) 02/15/19 12:41 Aerobic Blood Culture - Final Blood Venous Strep Agalactiae - (Group B) Anaerobic Blood Culture - Final Strep Agalactiae - (Group B) 02/15/19 12:30 Aerobic Blood Culture - Final Blood Venous Strep Agalactiae - (Group B) Anaerobic Blood Culture - Final Strep Agalactiae - (Group B) 02/15/19 20:06 Urine Culture - Final Urine No Growth (<1,000 CFU/mL) Assess/Plan/Problems-Billing Assessment: 73 year old Male with new diagnosis of squamous lung cancer with mets to liver. - Patient Problems (1) Endocarditis Current Visit: Yes Status: Acute Code(s): I38 - ENDOCARDITIS, VALVE UNSPECIFIED SNOMED Code(s): 62507810 Comment: Strep Mitral valve endocarditis. On Cefepime, and vanocmycin (2) Atrial fibrillation Current Visit: Yes Status: Acute Code(s): I48.91 - UNSPECIFIED ATRIAL FIBRILLATION SNOMED Code(s): 63814472 Comment: rate controlled, overnight had required IV metoprolol, digoxin and cardizem. continue PO metoprolol (3) Pulmonary edema Current Visit: Yes Status: Acute Code(s): J81.1 - CHRONIC PULMONARY EDEMA SNOMED Code(s): 39754623 Comment: continue with lasix. will give extra 40mg IV lasix due to crackles and tachypnea. (4) Lung cancer Current Visit: Yes Status: Acute Code(s): C34.90 - MALIGNANT NEOPLASM OF UNSP PART OF UNSP BRONCHUS OR LUNG SNOMED Code(s): 189275526 (5) Encephalopathy Current Visit: Yes Status: Acute Code(s): G93.40 - ENCEPHALOPATHY, UNSPECIFIED SNOMED Code(s): 37429572 Comment: Altered mental status, is improved for now. Likely due to septic emboli based on MRI done 02/20
[2019-02-22] MEDS ORDERED: Potassium Chlor TAB* 20 MEQ TAB.ER PO ONE (11:07)
[2019-02-22] MEDS ORDERED: Furosemide IV* 10 MG/ML VIAL (40 MG) IV ONE (11:13)
[2019-02-22] MEDS ORDERED: Albuterol/Ipratropium NEB.SOL* Albuterol 2.5 MG/Ipratropium 0.5 MG 3 ML ONE (11:18)
[2019-02-22] MEDS: Albuterol/Ipratropium NEB.SOL* Albuterol 2.5 MG/Ipratropium 0.5 MG 3 ML INH PRN (11:20)
[2019-02-22] MEDS: KCL 20 MEQ/100 ML IVPREMIX* 20 MEQ/100 ML BAG IV SCH ×4 (11:37→15:57)
[2019-02-22] MEDS: Ergocalciferol CAP* 50000 UNIT PEG TUBE SCH (16:11)
[2019-02-22] MEDS: Enoxaparin(*) 40 MG/0.4 ML SYR SUBCUT SCH (19:29)
[2019-02-23] MEDS: Levothyroxine TAB* 88 MCG TAB PEG TUBE SCH (05:17)
[2019-02-23] MEDS: Cefepime 1 GM in Dextrose(*) 1 GM/50 ML BAG IV SCH ×2 (05:39→18:48)
[2019-02-23 06:16] LABS: BUN/Creatinine Ratio 45.5 (8-20); Calcium 8.5 mg/dL (8.6-10.3); EGFR African American 79.6 (>60); EGFR Non-African American 65.8 (>60); Potassium 3.2 mmol/L (3.5-5.0)
[2019-02-23] MEDS ORDERED: Vancomycin Trough Check NOTE FOLLOW UP ONE (06:30)
[2019-02-23] MEDS: Vancomycin(*) 1,000 MG in NS 0.9% 250 ML* 250 ML IVPB SCH (06:47)
[2019-02-23] MEDS: Furosemide IV* 10 MG/ML 2 ML VIAL (20 MG) IV SCH ×2 (10:38→20:23)
[2019-02-23] MEDS: Lisinopril TAB* 10 MG PEG TUBE SCH (10:40)
[2019-02-23] MEDS: Metoprolol Tartrate TAB* 25 MG PO SCH ×2 (10:40→20:24)
[2019-02-23] MEDS: Famotidine SUSP ORALSYR 8 MG/ML PEG TUBE SCH (10:40)
--- NOTE | 2019-02-23 10:42 | PN ---
Progress Note - Progress Note Date of Service: 02/23/19 SOAP: Subjective: CC: endocarditis HPI: 73 yo man with lung cancer and liver metastases w recent biopsy now with Grp B Strep Mitral valve endocarditis by TTE. Has hx palate cancer and PEG tube feeds. Has ongoing body aches everywhere, refusing tube feeds. No rash or diarrhea. Has had runs of VT here. Objective: Vital Signs Temp 36.6 C 02/23/19 07:55 Pulse 67 02/23/19 07:55 Resp 16 02/23/19 08:00 BP 128/53 02/23/19 07:55 Pulse Ox 100 02/23/19 07:55 Intake & Output 02/22/19 02/23/19 02/23/19 18:59 06:59 18:59 Intake Total 0 622 240 Output Total 1500 1950 0 Balance -1500 -1328 240 Intake: Oral 0 622 240 Output: Urine 0 [place] 1500 1950 Gen:awake, no distress Neuro: moves all extremities HEENT: no thrush Heart:RRR no murmur Lungs:CTA BL Abd:+ BS NTND soft Skin: no rash MSK: No spine tenderness Laboratory Results - last 24 hr 02/23/19 02/23/19 05:45 05:49 Sodium 146 H Potassium 3.2 L Chloride 112 H Carbon Dioxide 30 Anion Gap 4 BUN 50 H Creatinine 1.10 Est GFR ( Amer) 79.6 Est GFR (Non-Af Amer) 65.8 BUN/Creatinine Ratio 45.5 H Glucose 96 Calcium 8.5 L Vancomycin Trough 15.5 Assessment: 1. 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 Lung cancer w liver metastases 3. hx laryngeal cancer 4. malnutrition Plan: 1. continue ceftriaxone 1 gm IV daily, likely not curable without CT surgery and he is not a surgical candidate with cachexia, malnutrition, immobility, lung cancer with metastases. Can try long course IV antibiotics and/or transition to PO abx if plan for ongoing medical Rx. Discussed w Dr Nuñez.
[2019-02-23] MEDS ORDERED: Furosemide IV* 10 MG/ML 2 ML VIAL (20 MG) IV ONE (13:01)
[2019-02-23] MEDS ORDERED: Polyethylene Glycol 3350* 17 GM PACKET PEG TUBE PRN (13:02)
--- NOTE | 2019-02-23 13:17 | PN ---
Progress Note - Progress Note Date of Service: 02/23/19 SOAP: Subjective: []Feeling a little better today. More alert and agreeable to tube feedings. Enjoying water, pepsi, and ice-cream by mouth. Very weak. does not feel she can take him home at this point, "theres no way I could do it." worried about skin. No open ulcerations. No BM in several days per nursing. Episode of rapid A.Fib overnight. Medications: Acetaminophen (Tylenol Adult Liq*) 650 mg PO Q4H PRN PRN Reason: PAIN Last Admin: 02/22/19 23:23 Dose: 650 mg Albuterol/Ipratropium (Duoneb (Albuterol 2.5 Mg/Ipratropium 0.5 Mg)) 1 neb INH Q6H PRN PRN Reason: SOB/WHEEZING Last Admin: 02/22/19 11:20 Dose: 1 neb Enoxaparin Sodium (Lovenox(*)) 40 mg SUBCUT Q24H [facility] Last Admin: 02/22/19 19:29 Dose: Not Given Ergocalciferol (Drisdol Cap*) 50,000 unit PEG TUBE Akers@1700 [facility] Last Admin: 02/22/19 16:11 Dose: Not Given Famotidine (Pepcid Susp 8mg/Ml) 40 mg PEG TUBE DAILY [facility] Last Admin: 02/23/19 10:40 Dose: 40 mg Furosemide (Lasix Iv*) 20 mg IV BID BLANK Last Admin: 02/23/19 10:38 Dose: 20 mg Furosemide (Lasix Iv*) 20 mg IV ONCE ONE Stop: 02/23/19 13:02 Haloperidol Lactate (Haldol Inj Iv/Im*) 1 mg IV SLOW PU Q4H PRN PRN Reason: AGITATION Last Admin: 02/18/19 02:32 Dose: 1 mg Heparin Sodium (Porcine) (Heparin Flush Picc/Ml/Cvc(*)) 1 - 3 ml FLUSH 0600, 1800 [facility]; Protocol Last Admin: 02/23/19 11:10 Dose: 1 ml Cefepime HCl (Maxipime 1 Gm In Dextrose Duplex (*)) 1 gm in 50 mls @ 100 mls/ hr IV Q12H [facility] Last Admin: 02/23/19 05:39 Dose: 100 mls/hr Levothyroxine Sodium (Synthroid Tab*) 88 mcg PEG TUBE DAILY@0600 [facility] Last Admin: 02/23/19 05:17 Dose: Not Given Lisinopril (Prinivil Tab*) 10 mg PEG TUBE QAM [facility] Last Admin: 02/23/19 10:40 Dose: 10 mg Metoprolol Tartrate (Lopressor Iv*) 5 mg IV Q6H PRN PRN Reason: TACHYCARDIA Last Admin: 02/22/19 00:26 Dose: 5 mg Metoprolol Tartrate (Lopressor Tab*) 25 mg PO BID [facility] Last Admin: 02/23/19 10:40 Dose: 25 mg Polyethylene Glycol/Electrolytes (Miralax*) 17 gm PEG TUBE DAILY PRN PRN Reason: CONSTIPATION Objective: [] Vital Signs Temp Pulse Resp BP Pulse Ox 97.9 F 67 16 128/53 100 02/23/19 07:55 02/23/19 07:55 02/23/19 08:00 02/23/19 07:55 02/23/19 07:55 A&O, lethargic however responding appropriately HRR, distant heart sounds, tele SR at this time - several runs of VT LS crackles +BS Trace pedal edema L>R Cachexia Laboratory Results - last 24 hr 02/23/19 02/23/19 05:45 05:49 Sodium 146 H Potassium 3.2 L Chloride 112 H Carbon Dioxide 30 Anion Gap 4 BUN 50 H Creatinine 1.10 Est GFR ( Amer) 79.6 Est GFR (Non-Af Amer) 65.8 BUN/Creatinine Ratio 45.5 H Glucose 96 Calcium 8.5 L Vancomycin Trough 15.5 Assessment: []73 yo male with metastatic cancer recently progressed to the liver presenting with sepsis secondary to group b strep endocarditis complicated by septic emboli 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 distress appearing slightly improved today , however overall prognosis remains very guarded. I am not confident that he will improve much, however the family remains hopeful for improvement with curious about rehab. Plan at this time is to cont. antibiotics with no escalation of care, the next several days may be very telling and he may ultimately be more appropriate for hospice though the family does not appear ready for this. Plan: []- Cont. IV abx. - Give additional dose of IV lasix - turn and position, barrier cream to coccyx, air mattress - Cont. nutritional support - PT/OT eval. and tx. - IV K replacement DNR Dispo: inpt. for cont.'d dysrhythmias and need for IV abx.
[2019-02-23] MEDS: KCL 20 MEQ/100 ML IVPREMIX* 20 MEQ/100 ML BAG IV SCH ×2 (14:28→17:25)
[2019-02-23] MEDS: Acetaminophen ADULT LIQ* 650 MG/20.3 ML UDC PO PRN ×2 (15:58→20:24)
[2019-02-23] MEDS: Enoxaparin(*) 40 MG/0.4 ML SYR SUBCUT SCH (20:23)
[2019-02-24] MEDS: Albuterol/Ipratropium NEB.SOL* Albuterol 2.5 MG/Ipratropium 0.5 MG 3 ML INH PRN (02:33)
[2019-02-24] MEDS: Morphine 4 MG/ML VIAL (1 ml) 4 MG/ML VIAL IV PRN ×5 (03:26→15:02)
[2019-02-24 04:29] VITALS: BP 106/43
[2019-02-24] MEDS: Levothyroxine TAB* 88 MCG TAB PEG TUBE SCH (05:21)
[2019-02-24] MEDS: Cefepime 1 GM in Dextrose(*) 1 GM/50 ML BAG IV SCH (05:50)
--- NOTE | 2019-02-24 07:32 | PN ---
Progress Note - Progress Note Date of Service: 02/24/19 SOAP: Phone note/change of care note: Multiple calls early this am with deterioration in respiratory status. Morphine added earlier in morning for comfort. Called at ~630 am that he had epistaxis and an O2 sat in the 60s despite face mask. Given overall poor performance status and lack of ability to treat underlying cancer I discussed with his Camille at length goals of care. We decided to NOT escalate care and make him as comfortable as possible. With respiratory treatments and close nursing monitoring he did come up to the 90s on 7L. He will be made comfort measures only and we will stop telemetry and not escalate respiratory support into the ICU. We will readdress hospice on morning rounds.
[2019-02-24] MEDS ORDERED: Potassium Chloride* LIQUID 20 MEQ/15 ML UDC PO SCH (09:00)
[2019-02-24] MEDS ORDERED: Lorazepam PYXIS KEY PRN (14:39)
[2019-02-24] MEDS ORDERED: Atropine 1% (ORAL/SL)* 15 ML BTL SL PRN (14:40)
[2019-02-24] MEDS ORDERED: LORazepam INJ* 2 MG/ML 1 ML VIAL ONE (14:44)
[2019-02-24] MEDS: LORazepam INJ* 2 MG/ML 1 ML VIAL IV PUSH PRN ×2 (14:46→18:59)
[2019-02-24] MEDS: Morphine 10 MG/ML VIAL (1 ml) IV PRN ×5 (15:26→19:57)
--- NOTE | 2019-02-24 22:50 | PN ---
Progress Note - Progress Note Date of Service: 02/24/19 Note: Asked by Oncology to pronounce the patient Patient at 2105 with family at the bedside On my encounter, family had left. Exam: no respirations or heart sounds
--- NOTE | 2019-03-25 08:46 | DS ---
SUMMARY: DATE OF ADMISSION: 02/15/19 DATE OF : 02/24/19 DIAGNOSES AT : 1. Metastatic lung cancer. 2. Chronic obstructive pulmonary disease. 3. Squamous cell head and neck cancer. HOSPITAL COURSE: He came in with shortness of breath likely from recurrent aspirations. Had fevers and was found to have strep endocarditis. He has been on antibiotics for his resistant positive blood cultures. He continued to deteriorate over the course of the hospital. Multiple discussions with the patient and the family. He had multiple cancers in the past and did not want aggressive treatment for any of his diseases. Decision was made to limit on his care and he was managed with oxygen support and antibiotics. Deteriorated on 02/24/19 and . The patient was comfortable at the time of . PENDING STUDIES AND APPOINTMENTS ON DISCHARGE: None. [id number]/[facility] #: [id number] SERGIO
== END 2019-02-24 21:05 | disposition expired | DRG 871 ==
LOC: ED 11:04 → MEDTELE 15:58 → ICU 02-20 04:55 → SSU 02-21 09:47 → MEDTELE 02-21 13:48
PROVIDERS: ADMIT Hospitalist; ATTEND Internal Medicine Hematology & Oncology
PROC: 0T9B70Z Drainage of Bladder with Drainage Device, Via Natural or Artificial Opening (ICD-10-PCS; 2019-02-19)
PROC: 30233N1 Transfusion of Nonautologous Red Blood Cells into Peripheral Vein, Percutaneous Approach (ICD-10-PCS; 2019-02-19)
PROC: 5A09357 Assistance with Respiratory Ventilation, Less than 24 Consecutive Hours, Continuous Positive Airway Pressure (ICD-10-PCS; principal; 2019-02-20)
DX: A40.1 Sepsis due to streptococcus, group B (principal); I33.0 Acute and subacute infective endocarditis; J81.0 Acute pulmonary edema; R64 Cachexia; C34.90 Malignant neoplasm of unspecified part of unspecified bronchus or lung; C78.7 Secondary malignant neoplasm of liver and intrahepatic bile duct; C79.00 Secondary malignant neoplasm of unspecified kidney and renal pelvis; E87.1 Hypo-osmolality and hyponatremia; G93.40 Encephalopathy, unspecified; D62 Acute posthemorrhagic anemia; S37.29XA Other injury of bladder, initial encounter; I47.2 Ventricular tachycardia; I76 Septic arterial embolism; E87.2 Acidosis; I48.91 Unspecified atrial fibrillation; R06.89 Other abnormalities of breathing; X58.XXXA Exposure to other specified factors, initial encounter; Y92.239 Unspecified place in hospital as the place of occurrence of the external cause; I49.3 Ventricular premature depolarization; Z66 Do not resuscitate; I66.9 Occlusion and stenosis of unspecified cerebral artery; E03.9 Hypothyroidism, unspecified; I10 Essential (primary) hypertension; M06.9 Rheumatoid arthritis, unspecified; E87.6 Hypokalemia; R74.8 Abnormal levels of other serum enzymes; D64.9 Anemia, unspecified; R31.0 Gross hematuria; Z93.1 Gastrostomy status; Z82.49 Family history of ischemic heart disease and other diseases of the circulatory system; Z87.891 Personal history of nicotine dependence; Z68.20 Body mass index [BMI] 20.0-20.9, adult; Z85.89 Personal history of malignant neoplasm of other organs and systems; Z85.21 Personal history of malignant neoplasm of larynx; Z80.7 Family history of other malignant neoplasms of lymphoid, hematopoietic and related tissues
CPT/HCPCS: 36415; 36600; 70450; 70553; 71045; 71046; 80048; 80053; 80202; 81003; 81015; 82140; 82550; 82553; 82803; 83605; 83735; 83880; 84443; 84484; 85025; 85027; 85652; 86140; 86850; 86900; 86901; 86922; 87040; 87077; 87086; 87186; 87205; 87641; 93005; 93306; 94640; 94660; 99232; 99233; 99285; A9270-GY; A9579; C1751; J0692; J0696; J1160; J1630; J1650; J1940; J2060; J2270; J3370; J3475; J3480; J3490; P9040